=== PATIENT | female | born 1940 | race Caucasian/White ===

== ENCOUNTER 2017-12-04 08:17 | Inpatient (IN) | payer OTHER, SELFPAY ==
--- OUTSIDE RECORDS SUMMARY | 2017-12-04 08:19 | XMS REPORT ---
:1940 Author Organization [employer] Care Team Providers Name Role Phone Quevedo, Na Provider Role Unavailable Allergies, Adverse Reactions, Alerts Substance Reaction Event Type Citalopram Hydrobromide thrombocytopenia Drug Allergy Problems Problem Type Condition Code Onset Dates Condition Status Assessment Renal insufficiency N28.9 Active Problem Degenerative joint disease M19.90 Active Assessment Neutrophilic leukocytosis D72.9 Active Problem Diverticulosis of colon K57.30 Active Assessment Hypoxemia R09.02 Active Problem Mixed hyperlipidemia E78.2 Active Problem CAD (coronary artery disease), I25.10 Active [place] coronary artery Problem Urinary incontinence R32 Active Problem HTN (hypertension) I10 Active Problem Renal insufficiency N28.9 Active Assessment Chronic atrial fibrillation I48.2 Active Assessment Pulmonary fibrosis J84.10 Active Problem Obesity E66.9 Active Assessment Dependence on supplemental oxygen Z99.81 Active Problem Pulmonary fibrosis J84.10 Active Problem 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 Problem Osteopenia M85.80 Active Problem Glaucoma H40.9 Active Assessment HTN (hypertension) I10 Active Problem Neutrophilic leukocytosis D72.9 Active Assessment CAD (coronary artery disease), I25.10 Active [place] coronary artery Assessment Mixed hyperlipidemia E78.2 Active Problem Dependence on supplemental oxygen Z99.81 Active Problem Chronic atrial fibrillation I48.2 Active Problem At risk for falling Z91.81 Active Problem Leucocytosis D72.829 Active Medications Medication Code Code Instructions Start End Status Dosage System Date Date Lovastatin [facility] 82710848153 10 MG Orally Active 1 tablet Once a day with a meal Metoprolol [facility] 15479162669 25 MG Orally Active 1 tablet Tartrate Twice a day with food Caltrate 600+D [facility] 24076117447 600-800 MG-UNIT Active 1 tablet Orally Once a with a meal day Xalatan [facility] 97710972091 0.005 % Active 1 drop into Ophthalmic Once affected a day eye in the evening Norvasc [facility] 57393006773 5 MG Orally Once Active 1 tablet a day Results No Known Results Summary Purpose [employer] Submission
--- OUTSIDE RECORDS SUMMARY | 2017-12-04 08:19 | XMS REPORT ---
:1940 Author Organization [employer] Care Team Providers Name Role Phone Quevedo, Na Provider Role Unavailable Allergies No Known Allergies Problems Problem Type Condition Code Onset Dates Condition Status Problem Mixed hyperlipidemia E78.2 Active Problem CAD (coronary artery disease), I25.10 Active [place] coronary artery Problem Urinary incontinence R32 Active Problem HTN (hypertension) I10 Active Problem Renal insufficiency N28.9 Active Problem Obesity E66.9 Active Problem Pulmonary fibrosis J84.10 Active Problem 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 Problem Osteopenia M85.80 Active Problem Glaucoma H40.9 Active Problem Neutrophilic leukocytosis D72.9 Active Problem Dependence on supplemental oxygen Z99.81 Active Problem Chronic atrial fibrillation I48.2 Active Problem At risk for falling Z91.81 Active Problem Degenerative joint disease M19.90 Active Problem Leucocytosis D72.829 Active Problem Diverticulosis of colon K57.30 Active Medications No Known Medications Results No Known Results Summary Purpose [employer] Submission
[2017-12-04 08:53] LABS: Arterial Blood Carboxyhemoglob 1.6 % (0-1.5); Blood Gas Oxyhemoglobin 91.1 % (94-97); Blood O2 Saturation 93.4 % (92-98.5)
--- NOTE | 2017-12-04 09:25 | RAD REPORT ---
EXAM DESCRIPTION: CT - Head Brain Wo Cont - 12/04/2017 9:10 am CLINICAL HISTORY: Alteration of awareness. Declining state COMPARISON: January 2017 TECHNIQUE: Computed axial tomography of the head was obtained. IV contrast was not requested. All CT scans are performed using dose optimization technique as appropriate and may include automated exposure control or mA/KV adjustment according to patient size. FINDINGS: An intracranial bleed is not seen . The ventricles are normal in caliber. No extra-axial fluid collection is noted. Mild low-density areas within periventricular, deep and sub cortical white matter likely represent ischemic changes secondary to small vessel disease. Fluid within the sinuses/ mastoids is not seen. IMPRESSION: No acute intracranial abnormality is seen. If patient's symptoms persist MRI of the bra in would be recommended.
[2017-12-04 10:17] LABS: Absolute Monocytes 0.6 K/uL (0.1-1.3); Absolute Neutrophil 10.8 K/uL (1.8-8.0); Basophils % 0.7 % (0-1.3); Eosinophils % 1.1 % (0-4.4); Hematocrit 45.1 % (36.0-45.0); Lymphocytes % 14.6 % (15.3-44.8); MCH 28.4 pg (27.0-35.0); MCV 87.4 fL (80-100); MPV 7.6 fL (7.6-11.3); Monocytes % 4.7 % (3.3-12.3); RBC Red Blood Cell Count 5.16 M/uL (3.86-4.86)
[2017-12-04 10:20] LABS: Protime INR 1.08
[2017-12-04 10:30] LABS: ALT/SGPT 22 U/L (12-78); AST/SGOT 22 U/L (15-37); Albumin 3.2 g/dL (3.4-5.0); Alkaline Phosphatase 162 U/L (45-117); BUN Blood Urea Nitrogen 17 mg/dL (7-18); Bicarbonate 35 mmol/L (21-32); Bilirubin Direct 0.2 mg/dL (0-0.2); Bilirubin Total 0.4 mg/dL (0.2-1.0); Creatine Phosphokinase 30 U/L (26-192); Glucose Level 112 mg/dL (74-106); Lipase 83 U/L (73-393); Potassium 4.3 mmol/L (3.5-5.1); Protein, Total 8.2 g/dL (6.4-8.2); Sodium Level 142 mmol/L (136-145); Troponin (Emerg Dept Use Only) < 0.02 ng/mL (0.0-0.045)
--- NOTE | 2017-12-04 10:37 | RAD REPORT ---
EXAM DESCRIPTION: [facility]ji Single View12/04/2017 10:07 am CLINICAL HISTORY: Chest pain COMPARISON: January 2017 FINDINGS: The lungs appear clear of acute infiltrate. The heart is mildly enlarged. Postsurgical changes involve the chest IMPRESSION: No acute abnormalities displayed
[2017-12-04] MEDS ORDERED: IPRATROPIUM BROM 0.5MG/2.5ML ONE (10:55)
[2017-12-04] MEDS ORDERED: FUROSEMIDE 40 MG/4 ML VIAL ONE (10:55)
[2017-12-04] MEDS ORDERED: ALBUTEROL 2.5 MG/3 ML NEB SOL ONE (10:55)
--- NOTE | 2017-12-04 11:15 | EDPHYS ---
Physician Documentation [facility] Name: Jayne Ledbetter Age: 77 yrs Sex: Female : 1940 Arrival Date: 12/04/2017 Time: 08:20 Bed 8 Private MD: Ashlee Quevedo ED Physician Lj Vaughn HPI: 12/04 11:08 This 77 yrs old Female presents to ER via Wheelchair with complaints of gs Altered Mental Status. 11:08 The patient presents with decreased responsiveness. Onset: The symptoms/episode gs began/occurred gradually, 2 day(s) ago. Possible causes: unknown. Associated signs and symptoms: Pertinent negatives: abdominal pain, chest pain, fever. Current symptoms: In the emergency department the patient's symptoms are unchanged from the initial presentation. The patient has experienced similar episodes in the past, a few times. The patient has not recently seen a physician. Historical: - Allergies: 10:22 No Known Allergies; hb - Home Meds: 08:35 aspirin 81 mg Oral chew 1 tab once daily [Active]; atorvastatin Oral [Active]; Eye hb Drops x2 for Glaucoma [Active]; Oxygen \T\ 2L/NC [Active]; metoprolol tartrate 25 mg Oral tab 1 tab once daily [Active]; 12:04 amlodipine 2.5 mg tab 1 tab once daily [Active]; lovastatin 10 mg Oral tab 1 tab once sg daily [Active]; - PMHx: 08:35 Cancer; Glaucoma; heart disease; High Cholesterol; Hypertension; hb - PSHx: 08:35 ; Hysterectomy; CABG; hb - Immunization history:: Adult Immunizations up to date. - Social history:: Smoking status: Patient/guardian denies using tobacco. - Ebola Screening: : No symptoms or risks identified at this time. ROS: 11:08 All other systems are negative. gs Exam: 11:08 Head/Face: Normocephalic, atraumatic. Eyes: Pupils equal round and reactive to light, gs extra-ocular motions intact. Lids and lashes normal. Conjunctiva and sclera are non-icteric and not injected. Cornea within normal limits. Periorbital areas with no swelling, redness, or edema. ENT: Nares patent. No nasal discharge, no septal abnormalities noted. Tympanic membranes are normal and external auditory canals are clear. Oropharynx with no redness, swelling, or masses, exudates, or evidence of obstruction, uvula midline. Mucous membranes moist. Neck: Trachea midline, no thyromegaly or masses palpated, and no cervical lymphadenopathy. Supple, full range of motion without nuchal rigidity, or vertebral point tenderness. No Meningismus. Chest/axilla: Normal chest wall appearance and motion. Nontender with no deformity. No lesions are appreciated. 11:08 Abdomen/GI: Soft, non-tender, with normal bowel sounds. No distension or tympany. No guarding or rebound. No evidence of tenderness throughout. Back: No spinal tenderness. No costovertebral tenderness. Full range of motion. Skin: Warm, dry with normal turgor. Normal color with no rashes, no lesions, and no evidence of cellulitis. MS/ Extremity: Pulses equal, no cyanosis. Neurovascular intact. Full, normal range of motion. Neuro: Awake and alert, GCS 15, oriented to person, place, time, and situation. Cranial nerves II-XII grossly intact. Motor strength 5/5 in all extremities. Sensory grossly intact. Cerebellar exam normal. Normal gait. 11:08 Constitutional: The patient appears lethargic. 11:08 Cardiovascular: Rate: normal, Rhythm: regular, Pulses: no pulse deficits are appreciated. 11:08 ECG was reviewed by the Attending Physician. 11:08 Respiratory: moderate respiratory distress is noted, Respirations: shallow respirations, that is moderate, Breath sounds: rhonchi, that are mild, are heard diffusely. 11:08 Neuro: Orientation: to person, place, time, situation. Vital Signs: 08:25 BP 191 / 71; Pulse 71; Resp 28; Temp 97.4(A); Pulse Ox 56% on R/A; hb 08:40 Pulse Ox 94% on 3 lpm NC; hb 09:45 BP 199 / 95; Pulse 70; Resp 24; Pulse Ox 97% on 35% BiPAP; hb 10:27 BP 177 / 70; Pulse 67; Resp 24; Pulse Ox 95% on 35% BiPAP; hb 12:22 BP 158 / 64; Pulse 73; Resp 18; Pulse Ox 96% on R/A; hb MDM: 08:36 Patient medically screened. gs 11:08 Differential Diagnosis: CVA, electrolyte abnormality, intracranial bleed, pneumonia, gs resp failure, chf, copd. Data reviewed: vital signs, nurses notes. Response to treatment: the patient's symptoms have markedly improved after treatment, and as a result, I will admit patient. 12/04 08:36 Order name: Basic Metabolic Panel; Complete Time: 10:43 12/04 08:36 Order name: Blood Culture Adult (2) 12/04 08:36 Order name: CBC with Diff; Complete Time: 10:43 12/04 08:36 Order name: CPK; Complete Time: 10:43 12/04 08:36 Order name: Lactate; Complete Time: 10:43 12/04 08:36 Order name: LFT's; Complete Time: 10:43 12/04 08:36 Order name: Lipase; Complete Time: 10:43 12/04 08:36 Order name: Procalcitonin; Complete Time: 10:43 12/04 08:36 Order name: Protime (+inr); Complete Time: 10:43 12/04 08:36 Order name: Troponin (emerg Dept Use Only); Complete Time: 10:43 12/04 08:36 Order name: Urine Microscopic Only 12/04 08:36 Order name: ABG; Complete Time: 10:13 12/04 12:23 Order name: Urine Dipstick--Ancillary (enter results) 12/04 12:29 Order name: T4 Free [facility] 12/04 08:36 Order name: Chest Single View XRAY; Complete Time: 10:43 12/04 08:36 Order name: Accucheck; Complete Time: 09:52 12/04 08:36 Order name: Cardiac monitoring; Complete Time: 09:08 12/04 08:36 Order name: EKG - Nurse/Tech; Complete Time: 09:09 12/04 08:36 Order name: IV Saline Lock - Large Bore; Complete Time: 09:56 12/04 08:36 Order name: Labs collected and sent; Complete Time: 09:56 12/04 08:36 Order name: O2 Per Protocol; Complete Time: 09:09 12/04 08:36 Order name: CT Head Brain wo Cont; Complete Time: 10:13 12/04 10:47 Order name: BIPAP 12/04 12:29 Order name: Thyroid Stimulating Hormone EDMS 12/04 12:34 Order name: Urine Dipstick-Ancillary EDSD 12/04 08:36 Order name: O2 Sat Monitoring; Complete Time: 09:09 12/04 08:36 Order name: Urine Dipstick-Ancillary (obtain specimen); Complete Time: 11:35 12/04 11:35 Order name: Ciara; Complete Time: 11:35 hb EC:08 Rate is 68 beats/min. Rhythm is regular. AK interval is normal. QRS interval is normal. gs T waves are Normal. No ST changes noted. Clinical impression: Normal ECG. Interpreted by me. Administered Medications: 08:37 CANCELLED (Duplicate Order): NS 0.9% (30 ml/kg) 30 ml/kg IV at bolus once; Sepsis Protocol 11:00 Drug: Lasix 40 mg Route: IVP; Site: right antecubital; hb 12:00 Follow up: Response: No adverse reaction hb 11:00 Drug: Albuterol 2.5 mg Route: Inhalation; hb 11:00 Drug: AtroVENT Aerosol 0.5 mg Route: Inhalation; hb 11:40 Drug: Rocephin - (cefTRIAXone) 1 grams Route: IVPB; Infused Over: 30 mins; Site: right hb antecubital; 12:00 Follow up: Response: No adverse reaction; IV Status: Completed infusion hb Disposition: 11:08 Critical Care:. gs Disposition: 12/04/17 11:14 Hospitalization ordered by Leon Schwartz for Inpatient Admission. Preliminary diagnosis are Acute respiratory failure with hypercapnia, Cystitis. - Bed requested for Intensive Care Unit. - Status is Inpatient Admission. dm5 - Condition is Stable. - Problem is new. - Symptoms have improved. UTI on Admission? Yes Critical care time excluding procedures: 11:08 Critical care time: Bedside Care: 10 minutes, Consultation: 10 minutes, Family gs Intervention: 10 minutes. Total time: 30 minutes Signatures: Dispatcher [employer] Oneyda Snow RN ALIS dm5 Daysi Corrales RN RN Madhav Ocampo RN RN Eleni Cavanaugh RN RN Lj Vaughn MD MD gs Corrections: (The following items were deleted from the chart) 08:37 08:36 NS 0.9% (30 ml/kg) 30 ml/kg IV at bolus once; Sepsis Protocol ordered. [facility] 11:17 11:14 Hospitalization Ordered by Leon Schwartz DO for Inpatient Admission. Preliminary diagnosis is Acute respiratory failure with hypercapnia. Bed requested for Telemetry/MedSurg (Inpatient). Status is Inpatient Admission. Condition is Stable. Problem is new. Symptoms have improved. UTI on Admission? No. 11:32 11:17 12/04/2017 11:14 Hospitalization Ordered by Leon Schwartz DO for Inpatient gs Admission. Preliminary diagnosis is Acute respiratory failure with hypercapnia. Bed requested for Intensive Care Unit. Status is Inpatient Admission. Condition is Stable. Problem is new. Symptoms have improved. UTI on Admission? No. 12:17 11:32 12/04/2017 11:14 Hospitalization Ordered by Leon Schwartz DO for Inpatient dw Admission. Preliminary diagnosis is Acute respiratory failure with hypercapnia; Cystitis. Bed requested for Intensive Care Unit. Status is Inpatient Admission. Condition is Stable. Problem is new. Symptoms have improved. UTI on Admission? Yes. 13:51 12:17 12/04/2017 11:14 Hospitalization Ordered by Leon Schwartz DO for Inpatient dm5 Admission. Preliminary diagnosis is Acute respiratory failure with hypercapnia; Cystitis. Bed requested for Intensive Care Unit. Status is Inpatient Admission. Condition is Stable. Problem is new. Symptoms have improved. UTI on Admission? Yes. dw
--- NOTE | 2017-12-04 11:15 | ER ---
Nurse's Notes [facility] Name: Jayne Ledbetter Age: 77 yrs Sex: Female : 1940 Arrival Date: 12/04/2017 Time: 08:20 Bed 8 Private MD: Ashlee Quevedo Diagnosis: Acute respiratory failure with hypercapnia;Cystitis Presentation: 12/04 08:25 Presenting complaint: Daughter reports confusion since yesterday at 1600. hb 08:25 Method Of Arrival: Wheelchair hb 08:25 Transition of care: patient was not received from another setting of care. Onset of hb symptoms was December 03, 2017. Risk Assessment: Do you want to hurt yourself or someone else? Patient reports no desire to harm self or others. Care prior to arrival: None. 08:25 Acuity: KEVIN 2 hb 10:45 Initial Sepsis Screen: Does the patient meet any 2 criteria? RR > 20 per min. No. hb Patient's initial sepsis screen is negative. Does the patient have a suspected source of infection? No. Patient's initial sepsis screen is negative. Historical: - Allergies: 10:22 No Known Allergies; hb - Home Meds: 08:35 aspirin 81 mg Oral chew 1 tab once daily [Active]; atorvastatin Oral [Active]; Eye hb Drops x2 for Glaucoma [Active]; Oxygen \T\ 2L/NC [Active]; metoprolol tartrate 25 mg Oral tab 1 tab once daily [Active]; 12:04 amlodipine 2.5 mg tab 1 tab once daily [Active]; lovastatin 10 mg Oral tab 1 tab once sg daily [Active]; - PMHx: 08:35 Cancer; Glaucoma; heart disease; High Cholesterol; Hypertension; hb - PSHx: 08:35 ; Hysterectomy; CABG; hb - Immunization history:: Adult Immunizations up to date. - Social history:: Smoking status: Patient/guardian denies using tobacco. - Ebola Screening: : No symptoms or risks identified at this time. Screenin:00 Abuse screen: Denies threats or abuse. Denies injuries from another. Nutritional hb screening: No deficits noted. Tuberculosis screening: No symptoms or risk factors identified. Fall Risk Total Cali Fall Scale indicates High Risk Score (45 or more points). Fall prevention measures have been instituted. Side Rails Up X 2 Frequent Obs/Assessments Occuring Family Present and informed to notify staff if the need to leave the bedside As available patient and family educated on Fall Prevention Program and Strategies. Assessment: 08:25 General: Appears distressed, Behavior is cooperative. Pain: Denies pain. Neuro: Level hb of Consciousness is obeys commands, lethargic, Oriented to person, place. Cardiovascular: Heart tones S1 S2 present Capillary refill is > 3 seconds Patient's skin is warm and dry. Respiratory: Airway is patent Trachea midline Respiratory effort is labored, Respiratory pattern is tachypnea. GI: No signs and/or symptoms were reported involving the gastrointestinal system. : No signs and/or symptoms were reported regarding the genitourinary system. EENT: No signs and/or symptoms were reported regarding the EENT system. Derm: Skin is intact, is thin, Skin is dry, Skin is pale. Musculoskeletal: No signs and/or symptoms reported regarding the musculoskeletal system. 08:30 Reassessment: 55-60% on RA, improved to 94% on NRB. Dr. Vaughn notified at bedside. RT hb paged for ABG and BIPAP ordered. 09:30 Reassessment: No changes from previously documented assessment. Patient and/or family hb updated on plan of care and expected duration. Pain level reassessed. Daughter remains at bedside. BIPAP continues. 10:30 Reassessment: Patient appears in no apparent distress at this time. Patient and/or hb family updated on plan of care and expected duration. Pain level reassessed. Patient is alert, oriented x 3, equal unlabored respirations, skin warm/dry/pink. 11:02 Reassessment: Dr. Schwartz at bedside. Admission ordered, awaiting room assignment at this time. 11:30 Reassessment: Patient appears in no apparent distress at this time. Patient and/or hb family updated on plan of care and expected duration. Pain level reassessed. Patient is alert, oriented x 3, equal unlabored respirations, skin warm/dry/pink. BIPAP continues. 12:30 Reassessment: Attempted to call report to ICU, receiving nurse is unavailable at this time. 12:35 Reassessment: Patient appears in no apparent distress at this time. Patient and/or hb family updated on plan of care and expected duration. Pain level reassessed. Patient is alert, oriented x 3, equal unlabored respirations, skin warm/dry/pink. 13:11 Reassessment: Report called to ALIS Ibarra. hb Vital Signs: 08:25 BP 191 / 71; Pulse 71; Resp 28; Temp 97.4(A); Pulse Ox 56% on R/A; hb 08:40 Pulse Ox 94% on 3 lpm NC; hb 09:45 BP 199 / 95; Pulse 70; Resp 24; Pulse Ox 97% on 35% BiPAP; hb 10:27 BP 177 / 70; Pulse 67; Resp 24; Pulse Ox 95% on 35% BiPAP; hb 12:22 BP 158 / 64; Pulse 73; Resp 18; Pulse Ox 96% on R/A; hb ED Course: 08:20 Patient arrived in ED. as 08:20 Ashlee Quevedo MD is Private Physician. as 08:27 Lj Vaughn MD is Attending Physician. gs 08:32 Eleni Cavanaugh RN is Primary Nurse. hb 08:34 Triage completed. hb 08:44 EKG done, by orthopedic radiologic technologist. reviewed by Lj Vaughn MD. at1 09:08 CT completed. Patient tolerated procedure well. Patient moved to CT via stretcher. sj Patient moved back from CT. 09:09 CT Head Brain wo Cont In Process Unspecified. EDMS 09:09 Arm band placed on left wrist. hb 09:10 Radiology exam delayed due to PT WAS IN CT. ag1 09:10 Missed attempt(s): 22 gauge in right forearm. Bleeding controlled, band aid applied, sg catheter tip intact. 09:15 Patient has correct armband on for positive identification. Placed in gown. Bed in low hb position. Call light in reach. Side rails up X2. 09:22 O2 via BiPap Response to oxygen therapy: symptoms improved. sg 09:25 Radiology exam delayed due to Blood draw and Code stroke called. ag1 09:55 Initial lab(s) drawn, by me, sent to lab. Inserted saline lock: 22 gauge in right ms antecubital area, using aseptic technique. Blood collected. 10:04 Chest Single View XRAY In Process Unspecified. EDMS 11:07 BIPAP Sent. hb 11:14 Leon Schwartz DO is Hospitalizing Provider. gs 11:25 [place] cath inserted, using sterile technique, 16 Fr., by me, balloon inflated, to hb gravity drainage, urine specimen collected. returned clear yellow urine. Patient tolerated well. 13:14 No provider procedures requiring assistance completed. Patient admitted, IV remains in hb place. Administered Medications: 08:37 CANCELLED (Duplicate Order): NS 0.9% (30 ml/kg) 30 ml/kg IV at bolus once; Sepsis Protocol 11:00 Drug: Lasix 40 mg Route: IVP; Site: right antecubital; hb 12:00 Follow up: Response: No adverse reaction hb 11:00 Drug: Albuterol 2.5 mg Route: Inhalation; hb 11:00 Drug: AtroVENT Aerosol 0.5 mg Route: Inhalation; hb 11:40 Drug: Rocephin - (cefTRIAXone) 1 grams Route: IVPB; Infused Over: 30 mins; Site: right hb antecubital; 12:00 Follow up: Response: No adverse reaction; IV Status: Completed infusion hb Outcome: 11:14 Decision to Hospitalize by Provider. 13:14 Admitted to ICU accompanied by nurse, accompanied by tech, family with patient, via stretcher, room ICU 6, with oxygen, on monitor, with chart, Report called to ALIS Ibarra 13:14 Condition: stable 13:14 Instructed on the need for admit, Demonstrated understanding of instructions. 13:51 Patient left the ED. dm5 Signatures: Dispatcher [facility] Oneyda Snow RN RN dm5 Madhav Ocampo RN RN sg Jones, Raven Linton Maria ms Jacoby, Janet, consulting software engineer EKG Tat1 Namrata Samuels ag1 Eleni Cavanaugh RN RN Lj Vaughn MD MD Corrections: (The following items were deleted from the chart) 10:30 08:25 BP 191 / 71; Pulse 71bpm; Resp 28bpm; Pulse Ox 56% RA; hb hb 11:17 09:15 Reassessment: Patient and/or family updated on plan of care and expected hb duration. Pain level reassessed. Patient is alert, oriented x 3, equal unlabored respirations, skin warm/dry/pink. Daughter at bedside. hb
[2017-12-04] MEDS ORDERED: ACETAMINOPHEN 500 MG TAB PO PRN (11:38)
[2017-12-04] MEDS ORDERED: ONDANSETRON 4 MG/2 ML VIAL IV PRN (11:38)
[2017-12-04] MEDS ORDERED: CEFTRIAXONE/SWI 1gm 1 GM/10 ML SYR ONE (11:47)
--- NOTE | 2017-12-04 12:26 | EKG ---
Test Date: 2017-12-04 Test Time: 08:36:20 Wire Spooler: LETTY MEASUREMENT RESULTS: Intervals: Rate: 68 HI: 182 QRSD: 86 QT: 422 QTc: 448 [place]: P: 1 HI: 182 QRS: 66 T: 36 INTERPRETIVE STATEMENTS: Normal sinus rhythm Normal ECG Compared to ECG 02/22/2017 16:51:19 No significant changes Electronically Signed On 12-04-17 12:24:46 CDT by Juan Ng
[2017-12-04 12:29] LABS: Thyroid Stimulating Hormone 2.97 uIU/mL (0.360-3.740)
[2017-12-04 12:34] LABS: Urine Blood 1+ (NEG); Urine Glucose NEGATIVE (NEG); Urine Protein 1+ (NEG); Urine Specific Gravity 1.025 (1.005-1.030); Urine pH 5.5 (5.0-7.0)
[2017-12-04 12:37] LABS: Urine Bacteria >50 /HPF (<20); Urine Culture Reflex Order REFLEXED; Urine RBC <5 /HPF (NONE SEEN)
[2017-12-04] MEDS: METHYLPREDNISOLONE 125 MG INJ IV SCH ×2 (14:35→21:04)
[2017-12-04] MEDS: Levofloxacin 750mg IV 750 MG/150 ML BAG IV SCH (14:36)
--- NOTE | 2017-12-04 15:08 | P.HP ---
Certification for Inpatient Patient admitted to: Inpatient With expected LOS: >2 Midnights Patient will require the following post-hospital care: Home Health Services Practitioner: I am a practitioner with admitting privileges, knowledge of patient current condition, hospital course, and medical plan of care. Services: Services provided to patient in accordance with Admission requirements found in Title 42 Section 412.3 of the Code of Federal Regulations Patient History Date of Service: 12/04/17 Primary Care Provider: Dr. Quevedo; Cardiology-Dr. Jaramillo; Pulmonary-Dr. Frank Allergies No Known Allergies Allergy (Unverified 12/04/17 12:08) Home Medications: Lovastatin 1 tab PO DAILY 02/22/17 Metoprolol Tartrate 1 tab PO BID 02/22/17 Timolol Maleate 1 gtts EACH EYE BID 02/22/17 Amlodipine [Norvasc*] 5 mg PO DAILY 02/23/17 Aspirin [Aspirin EC 81 MG] 81 mg PO DAILY 02/23/17 Brimonidine Tartrate 10 ml OP BID 02/23/17 - Past Medical/Surgical History Has patient received pneumonia vaccine in the past: No Diabetic: No -: HTN -: CAD with prior CABG -: History uterine cancer -: Hyperlipidemia -: Glaucoma -: COPD -: Hyperlipidemia -: CABG -: Hysterectomy -: Psychosocial/ Personal History: She is a . She has several children - Family History Family History: Reviewed- Non-Contributory - Social History Smoking Status: Never smoker Alcohol use: No CD- Drugs: No Caffeine use: Yes Place of Residence: Home Review of Systems General: Weakness, Malaise, As per HPI Eyes: Unremarkable ENT: Unremarkable Respiratory: Cough, Shortness of Breath, SOB with Excertion, Wheezing, As per HPI Cardiovascular: Unremarkable Gastrointestinal: Unremarkable Genitourinary: Unremarkable Musculoskeletal: Unremarkable Integumentary: Unremarkable Neurological: Confusion, As per HPI Lymphatics: Unremarkable Physical Examination - Vital Signs Temperature: 97.4 F Blood Pressure: 158/64 Pulse: 73 Respirations: 18 - Physical Exam General: Alert, In no apparent distress, Cooperative, Other (Minimal confusion) HEENT: Atraumatic, Normocephalic, PERRLA, Mucous membr. moist/pink Neck: Supple Respiratory: Expiratory wheezes (Bilateral) Cardiovascular: Normal pulses, Regular rate/rhythm Gastrointestinal: Normal bowel sounds, Soft and benign, Non-distended, No tenderness, No masses, No rebound, No guarding Musculoskeletal: No erythema, No tenderness, No warmth Integumentary: No tenderness/swelling, No erythema, No warmth, No cyanosis Neurological: Normal speech, Normal strength at 5/5 x4 extr, Normal tone, Normal affect - Studies Laboratory Data (last 24 hrs) 12/04/17 09:53: PT 12.7 H, INR 1.08 12/04/17 09:53: WBC 13.7 H, Hgb 14.7, Hct 45.1 H, Plt Count 232 12/04/17 09:53: Sodium 142, Potassium 4.3, BUN 17, Creatinine 0.90, Glucose 112 H, Total Bilirubin 0.4, AST 22, ALT 22, Alkaline Phosphatase 162 H, Lipase 83 Assessment and Plan - Plan Impression: Acute on chronic respiratory failure with hypoxia and hypercapnia secondary to COPD exacerbation Acute encephalopathy likely multifactorial, related to acute on chronic respiratory failure and UTI UTI Hypertension Hyperlipidemia GERD CAD with prior CABG Plan: Acute on chronic respiratory failure with hypoxia and hypercapnia secondary to COPD exacerbation, patient home oxygen-dependent: Patient will be admitted to ICU due to her current status. Patient stable this time. Patient requiring BiPAP. Patient more alert. Will continue with COPD medication including steroid treatment and nebulized treatment. Consult pulmonology to further evaluate. Will have respiratory wean off BiPAP. Patient uses home oxygen. Patient desires to go home at discharge. Acute encephalopathy likely multifactorial, related to acute on chronic respiratory failure and UTI: Encephalopathy improved. This is likely primarily related to her respiratory failure. Will continue as above. Patient also with UTI. Will start Levaquin. Urine and blood cultures obtained. UTI: Levaquin started. Urine culture pending Hypertension: Will need to verify and restart home medication. Will start metoprolol and Norvasc. Will monitor and adjust appropriately. Hyperlipidemia: Will review and restart home medication. Will start Lipitor. GERD: Will provide PPI. CAD with prior CABG: Will continue with aspirin and provide DVT prophylaxis. I will turn the service over to Dr. Alonzo tomorrow. I will go over the plan of care with her. - Advance Directives Does patient have a Living Will: Yes Does patient have a Durable POA for Healthcare: No - Code Status/Comfort Care Code Status Assessed: Yes (Patient is do not resuscitate) Time Spent Managing Pts Care (In Minutes): 55
[2017-12-04 15:43] LABS: CKMB Creatine Kinase MB < 1.0 ng/mL (0.3-3.6); Creatine Phosphokinase 28 U/L (26-192); Troponin I < 0.02 ng/mL (0.0-0.045)
[2017-12-04] MEDS: AMLODIPINE 5 MG TAB PO SCH (16:00)
[2017-12-04] MEDS: METOPROLOL TAR 25 MG TAB PO SCH (18:13)
[2017-12-04] MEDS: IPRATROPIUM BROM 0.5MG/2.5ML NEB PRN (20:10)
[2017-12-04] MEDS: ALBUTEROL 2.5 MG/3 ML NEB SOL NEB PRN (20:10)
[2017-12-04] MEDS: ARFORMOTEROL TARTRATE 15 MCG/2 ML VIAL.NEB NEB SCH (20:10)
[2017-12-04] MEDS: ATORVASTATIN 40 MG TAB PO SCH (21:03)
--- NOTE | 2017-12-04 22:42 | CON ---
History Of Present Illness: Mrs. Ledbetter is officially a 'Do Not Resuscitate' patient. More than 1 0 years ago, she had bypass surgery. She has done well since her bypass surgery. She has not had at rial fibrillation. She also has underlying hypertension, dyslipidemia, and she has glaucoma which is well treated. She was brought to the hospital because of worsening confusion. She started talking funny indicating that she was confused as to where she was. She was brought to the hospital. Since being here, a CT scan of the head looks normal. A carotid Doppler has been done but has not been int erpreted yet. My own interpretation indicates there is no significant stenosis. She has had an mal rial blood gas, which reveals she is retaining CO2. Her pCO2 was in the 70s and her pH was 7.29. Sudha montgomery also has a urinary tract infection, at least according to the urinalysis. The urine culture is pen ding. Blood cultures are also pending. The working diagnosis is that she has worsening confusion be cause of infection and CO2 retention. The patient was a cigarette smoker before her bypass, but has not smoked in many years. I was asked to see her to see if I thought she had congestive heart failur e. She has had an echocardiogram today that shows normal ejection fraction. There is mild valvular dysfunction, mild dysfunction of a diastole, but a chest x-ray does not look like congestive heart fa ilure to me at all. Physical Examination: General: Height 5 feet 1 inch, 179 pounds. Alert, not oriented, confused, not in respiratory distre ss. Lungs: Do not reveal wheezes or crackles. Heart Exam: Within normal limits for her age. There is a systolic murmur that seems to be a systoli c ejection type murmur, grade 1/6. Extremities: Mild edema. Distal pulses palpable. Impression: The patient does not have congestive heart failure. She has some onset of confusion bec ause of urinary tract infection and/or CO2 retention from obstructive sleep apnea. SH/MODL Voice ID: [id number] Report ID: [id number]
[2017-12-04 23:09] LABS: CKMB Creatine Kinase MB < 1.0 ng/mL (0.3-3.6); Creatine Phosphokinase 23 U/L (26-192); Troponin I < 0.02 ng/mL (0.0-0.045)
[2017-12-05] MEDS: IPRATROPIUM BROM 0.5MG/2.5ML NEB PRN (01:20)
[2017-12-05] MEDS: ALBUTEROL 2.5 MG/3 ML NEB SOL NEB PRN (01:20)
[2017-12-05 05:19] LABS: Absolute Monocytes 0.1 K/uL (0.1-1.3); Absolute Neutrophil 11.2 K/uL (1.8-8.0); Basophils % 0.4 % (0-1.3); Hematocrit 39.2 % (36.0-45.0); Lymphocytes % 8.2 % (15.3-44.8); MCH 28.5 pg (27.0-35.0); MCV 86.7 fL (80-100); MPV 7.5 fL (7.6-11.3); Monocytes % 0.6 % (3.3-12.3); RBC Red Blood Cell Count 4.52 M/uL (3.86-4.86)
[2017-12-05 05:36] LABS: Magnesium 1.8 mg/dL (1.8-2.4); Potassium 4.1 mmol/L (3.5-5.1)
[2017-12-05] MEDS ORDERED: MAGNESIUM SULFATE 1 gm IVPB 1 GM/100 ML BAG IV ONE (05:42)
[2017-12-05 05:48] LABS: Blood Morphology Comment NOT SEEN (NOT SEEN); Platelet Estimate ADEQ
[2017-12-05] MEDS: METOPROLOL TAR 25 MG TAB PO SCH ×2 (06:04→17:10)
--- NOTE | 2017-12-05 07:28 | ECHO ---
HEIGHT: 5 ft 1 in WEIGHT: 176 lb 3.2 oz DATE OF STUDY: 12/04/[address]: Leon Schwartz DO 2-DIMENSIONAL: YES M.MODE: YES DOPPLER: YES COLOR FLOW: YES TDS: YES PORTABLE: YES DEFINITY: BUBBLE STUDY: DIAGNOSIS: SHORTNESS OF BREATH, SUSPECT CONGESTIVE HEART FAILURE CARDIAC HISTORY: CATHERIZATION: NO SURGERY: YES PROSTHETIC VALVE: NO PACEMAKER: NO MEASUREMENTS (cm) DIASTOLIC (NORMALS) SYSTOLIC (NORMALS) IVSd 1.3 (0.6-1.2) LA Diam 3.0 (1.9-4.0) LVEF 69% LVIDd 3.3 (3.5-5.7) LVIDs 2.1 (2.0-3.5) %FS 38% LVPWd 1.4 (0.6-1.2) Ao Diam 2.5 (2.0-3.7) 2 DIMENSIONAL ASSESSMENT: RIGHT ATRIUM: NORMAL LEFT ATRIUM: DILATED RIGHT VENTRICLE: NORMAL LEFT VENTRICLE: LEFT VENTRICULAR HYPERTROPHY TRICUSPID VALVE: NORMAL MITRAL VALVE: MITRAL ANNULAR CALCIFICATION PULMONIC VALVE: NORMAL AORTIC VALVE: SCLEROSIS PERICARDIAL EFFUSION: NONE AORTIC ROOT: NORMAL LEFT VENTRICULAR WALL MOTION: NORMAL DOPPLER/COLOR FLOW: IMPAIRED LEFT VENTRICULAR RELAXATION. NO SIGN OF AORTIC STENOSIS OR AORTIC REGURGITATION. MILD MITRAL REGURGITATION. TRACE TRICUSPID REGURGITATION. NORMAL RIGHT VENTRICULAR SYSTOLIC PRESSURE. COMMENTS: NORMAL LEFT VENTRICULAR EJECTION FRACTION. LEFT VENTRICULAR HYPERTROPHY. DILATED LEFT ATRIUM. MITRAL ANNULAR CALCIFICATION. AORTIC SCLEROSIS WITH NO AORTIC STENOSIS OR AORTIC REGURGITATION. MILD MITRAL REGURGITATION. TRACE TRICUSPID REGURGITATION. TECHNOLOGIST: JOÃO BECKFORD
[2017-12-05] MEDS: ARFORMOTEROL TARTRATE 15 MCG/2 ML VIAL.NEB NEB SCH ×2 (07:58→20:47)
--- NOTE | 2017-12-05 08:31 | RAD REPORT ---
EXAM DESCRIPTION: USCarotid Artery [id number]/10/2018 12:29 pm CLINICAL HISTORY: TIA COMPARISON: None FINDINGS: The velocity of the right internal carotid artery equals 100 cm/sec. The right ICA/CCA rat io. 1.7 The velocity of the left internal carotid artery equals 100 cm/sec. The left ICA/CCA ratio 1.5 Moderate plaque is present within the right carotid bulb. Mild plaque is present within the left inte rnal carotid artery. The vertebral arteries demonstrate antegrade flow IMPRESSION: Moderate plaque within the right carotid bulb which appears to result in an approximatel y 40-45 percent stenosis
--- NOTE | 2017-12-05 08:37 | P.CNS ---
Date of Consult: 12/05/17 Reason for Consult: Respiratory failure Primary Care Provider: Dr. Quevedo; Cardiology-Dr. Jaramillo; Pulmonary-Dr. Frank Chief Complaint: Altered mental status History of Present Illness: Patient is 77 years of age well known to me with a history of obstructive airways disease sleep apnea admitted with altered mental status. This started about 2 days prior to admission seen in my office 1 or 2 weeks ago patient very anxious short of breath and was started on bronchodilators he is she still continued to have symptoms. Patient was found to be hypoxic hypercapnic Stefano is confused little agitated on BiPAP T Allergies No Known Allergies Allergy (Unverified 12/04/17 12:08) Home Medications: Lovastatin 1 tab PO DAILY 02/22/17 Metoprolol Tartrate 1 tab PO BID 02/22/17 Timolol Maleate 1 gtts EACH EYE BID 02/22/17 Amlodipine [Norvasc*] 2.5 mg PO DAILY 02/23/17 Aspirin [Aspirin EC 81 MG] 81 mg PO DAILY 02/23/17 Brimonidine Tartrate 1 gtt OP DAILY 02/23/17 - Past Medical/Surgical History Diabetic: No -: HTN -: CAD with prior CABG -: History uterine cancer -: Hyperlipidemia -: Glaucoma -: COPD -: Hyperlipidemia -: CABG -: Hysterectomy -: Psychosocial/ Personal History: She is a . She has several children - Social History Smoking Status: Never smoker Alcohol use: No CD- Drugs: No Caffeine use: Yes Place of Residence: Home Review of Systems is unable to be obtained Physical Examination Temp Pulse Resp BP Pulse Ox 98.2 F 60 17 130/53 L 94 12/05/17 04:00 12/05/17 07:00 12/05/17 07:00 12/05/17 07:00 12/05/17 07:00 General: Alert, Oriented x2, Cooperative Neck: Supple Respiratory: Clear to auscultation bilaterally, Diminished Cardiovascular: No edema, Normal S1 S2 Gastrointestinal: Normal bowel sounds, Soft and benign Laboratory Data (last 24 hrs) 12/04/17 09:53: PT 12.7 H, INR 1.08 12/04/17 09:53: WBC 13.7 H, Hgb 14.7, Hct 45.1 H, Plt Count 232 12/04/17 09:53: Sodium 142, Potassium 4.3, BUN 17, Creatinine 0.90, Glucose 112 H, Total Bilirubin 0.4, AST 22, ALT 22, Alkaline Phosphatase 162 H, Lipase 83 - Problems (1) Respiratory failure Current Visit: Yes Status: Acute Plan: Patient is 77 years of age admitted with altered mental status acute on chronic hyper apnea and respiratory failure still confused agitated on BiPAP white count mildly elevated chest x-ray shows interstitial changes echocardiogram normal left ventricular function left ventricular hypertrophy possible diastolic dysfunction plan to reduce the dose of Solu-Medrol I have added a low- dose diuretic thyroid function tests is satisfactory Qualifiers: Chronicity: acute on chronic
[2017-12-05] MEDS: METHYLPREDNISOLONE 40 MG INJ IV SCH ×3 (09:29→20:30)
[2017-12-05] MEDS: ASPIRIN EC 81 MG TAB PO SCH (09:29)
[2017-12-05] MEDS: AMLODIPINE 5 MG TAB PO SCH (09:29)
[2017-12-05] MEDS: ENOXAPARIN 40 MG/0.4 ML SQ SCH (09:30)
[2017-12-05] MEDS: FUROSEMIDE 20 MG/ 2ML VIAL IV SCH ×2 (09:35→17:11)
[2017-12-05 10:20] LABS: Arterial Blood Carboxyhemoglob 1.8 % (0-1.5); Blood Gas Oxyhemoglobin 93.8 % (94-97); Blood O2 Saturation 96.1 % (92-98.5)
--- NOTE | 2017-12-05 11:40 | PN ---
Subjective: Mrs. Ledbetter looks much more alert today. She is eating. She is still somewhat confus ed. I believe that is her baseline. Her pCO2 yesterday was in the high 70s. Her cardiac workup loo ks good and I do not think we can say she has heart failure itself, although there was found to be so me diastolic dysfunction. At some point, I believe the reason for hospitalization and reason for her confusion is hypoventilation, hypercapnia, probably sleep apnea. SANDRA/JUANJOSE Voice ID: [id number] Report ID: [id number]
--- NOTE | 2017-12-05 12:24 | P.PN ---
Subjective Date of Service: 12/05/17 Primary Care Provider: Dr. Quevedo; Cardiology-Dr. Jaramillo; Pulmonary-Dr. Frank Chief Complaint: Altered mental status Subjective: No new changes Patient seen and examined at bedside with RN. Chart reviewed. Case discussed with pulmonology at this time. Family at bedside and questions regarding discharge versus social work coordinator versus intermittent confusion that patient has been having since last night. All questions were answered. Patient does appear to be alert and oriented x3 however her family and nursing staff has been having intermittent hallucinations as well. Review of Systems 10-point ROS is otherwise unremarkable Physical Examination - Vital Signs Temperature: 98.2 F Blood Pressure: 157/60 Pulse: 73 Respirations: 20 Pulse Ox (%): 96 - Physical Exam General: Alert, Acute distress HEENT: Atraumatic, PERRLA, EOMI Neck: Supple, JVD not distended Respiratory: Normal air movement, Expiratory wheezes, Inspiratory wheezes, Rhonchi/gurgles Cardiovascular: Regular rate/rhythm, Normal S1 S2 Gastrointestinal: Normal bowel sounds, No tenderness Musculoskeletal: No tenderness Integumentary: No rashes Neurological: Normal speech, Normal tone, Normal affect Lymphatics: No axilla or inguinal lymphadenopathy - Studies Microbiology Data (last 24 hrs): 12/04/17 09:50 Blood - Blood Anaerobic Blood Culture - Final Medications List Reviewed: Yes Assessment And Plan - Current Problems (Diagnosis) (1) Respiratory failure Onset Date: 12/05/17 Current Visit: Yes Status: Acute Plan: Acute hypercapnic respiratory failure most likely secondary to COPD exacerbation -currently patient on BiPAP. Will wean as tolerated. -on duonebs, steroids, BiPAP as mentioned before -pulmonology consulted recommendations appreciated at this time Qualifiers: Chronicity: acute on chronic Respiratory failure complication: hypoxia and hypercapnia Qualified Code(s): J96.21 - Acute and chronic respiratory failure with hypoxia; J96.22 - Acute and chronic respiratory failure with hypercapnia (2) Acute encephalopathy Onset Date: 12/05/17 Current Visit: Yes Status: Acute Plan: Acute encephalopathy most likely secondary to toxic metabolic syndrome secondary to UTI versus hypercapnia -currently patient is alert and oriented x3 however does have intermittent confusion along with hallucination -initial head CT negative for any acute abnormality -MRI once patient is stable and off of BiPAP (3) COPD exacerbation Onset Date: 12/05/17 Current Visit: Yes Status: Acute Plan: COPD exacerbation most likely secondary infection -currently on BiPAP will wean as tolerated -duo nebs, steroids, BiPAP -pulmonology consulted appreciated recommendations at this time -will need long-acting beta agonist along with steroids to go home with. (4) UTI (urinary tract infection) Onset Date: 12/05/17 Current Visit: Yes Status: Acute Plan: UA concerning for urinary tract infection -urine culture pending at this time -on IV Levaquin at this time -will follow up with urine culture Qualifiers: Urinary tract infection type: acute cystitis Hematuria presence: without hematuria Qualified Code(s): N30.00 - Acute cystitis without hematuria (5) CAD (coronary artery disease) Onset Date: 12/05/17 Current Visit: Yes Status: Chronic Qualifiers: Coronary Disease-Associated Artery/Lesion type: [place] artery [place] vs. transplanted heart: [place] heart Associated angina: without angina Qualified Code(s): I25.10 - Atherosclerotic heart disease of [place] coronary artery without angina pectoris (6) GERD (gastroesophageal reflux disease) Onset Date: 12/05/17 Current Visit: Yes Status: Chronic Qualifiers: Esophagitis presence: without esophagitis Qualified Code(s): K21.9 - Gastro -esophageal reflux disease without esophagitis (7) HTN (hypertension) Onset Date: 12/05/17 Current Visit: Yes Status: Chronic Qualifiers: Hypertension type: essential hypertension Qualified Code(s): I10 - Essential (primary) hypertension Discharge Plan: Home Plan to discharge in: 48 Hours - Code Status/Comfort Care Code Status Assessed: Yes Critical Care: Yes
[2017-12-05] MEDS: Levofloxacin 750mg IV 750 MG/150 ML BAG IV SCH (13:33)
[2017-12-05] MEDS: ATORVASTATIN 40 MG TAB PO SCH (20:30)
--- NOTE | 2017-12-05 20:42 | RAD REPORT ---
EXAM DESCRIPTION: MRI - Brain Wo Cont - 12/05/2017 8:27 pm CLINICAL HISTORY: Transient alteration of awareness, stroke-like symptoms COMPARISON: CT head December 04 TECHNIQUE: Sagittal T1-weighted images were obtained along with axial PD, heavily T2-weighted and T2 -FLAIR images. Axial DWI and ADC mapping sequences were also obtained along with coronal heavily T2-w eighted images. FINDINGS: No intracranial hemorrhage, mass or acute infarction. There is no edema or shift of midlin e structures. No cortical edema or sulcal effacement. Mild chronic ischemic changes are scattered thr oughout the cerebral white matter sparing the basal ganglia, thalamus and brainstem tissue. Mild to m oderate atrophy is present. Ventricles are in proportion to the volume loss. [place]-matter/white matter junction is preserved. Signal voids are seen as a normal finding in the major intracranial vessels. No globe or orbital content acute finding. Mastoid air cells and paranasal sinuses are clear. IMPRESSION: No acute infarction changes. No acute intracranial finding. Atrophy and chronic ischemic changes are present matching the CT study.
[2017-12-06 05:32] LABS: Absolute Lymphocytes (CBC) 1.2 K/uL (0.7-4.9); Absolute Monocytes 0.3 K/uL (0.1-1.3); Absolute Neutrophil 16.9 K/uL (1.8-8.0); Basophils % 0.5 % (0-1.3); Hematocrit 40.5 % (36.0-45.0); Lymphocytes % 6.4 % (15.3-44.8); MCH 29.3 pg (27.0-35.0); MCV 86.3 fL (80-100); MPV 8.2 fL (7.6-11.3); Monocytes % 1.9 % (3.3-12.3); RBC Red Blood Cell Count 4.69 M/uL (3.86-4.86)
[2017-12-06 05:54] LABS: Magnesium 2.1 mg/dL (1.8-2.4); Potassium 4.3 mmol/L (3.5-5.1)
[2017-12-06] MEDS: METOPROLOL TAR 25 MG TAB PO SCH ×2 (06:00→18:00)
[2017-12-06 06:39] LABS: Blood Morphology Comment NOT SEEN (NOT SEEN); Platelet Estimate ADEQ; Urine White Blood Cell Casts OK
[2017-12-06] MEDS: ARFORMOTEROL TARTRATE 15 MCG/2 ML VIAL.NEB NEB SCH ×3 (08:00→19:40)
[2017-12-06] MEDS: FUROSEMIDE 20 MG/ 2ML VIAL IV SCH (09:00)
[2017-12-06] MEDS: METHYLPREDNISOLONE 40 MG INJ IV SCH (09:00)
--- NOTE | 2017-12-06 09:46 | P.PN ---
Subjective Date of Service: 12/06/17 Primary Care Provider: Dr. Quevedo; Cardiology-Dr. Jaramillo; Pulmonary-Dr. Frank Chief Complaint: Altered mental status Patient's condition is stable she is off BiPAP right now still confused oriented to place and person Review of Systems is unable to be obtained Physical Examination - Vital Signs Temperature: 98.7 F Blood Pressure: 113/56 Pulse: 53 Respirations: 15 Pulse Ox (%): 98 - Physical Exam General: Other (Confused) HEENT: Atraumatic Neck: Supple Respiratory: Normal air movement Cardiovascular: No edema, Normal S1 S2 Neurological: Other (Patient is moving all her extremities no obvious weakness) - Studies Microbiology Data (last 24 hrs): 12/04/17 09:50 Blood - Blood Anaerobic Blood Culture - Final Medications List Reviewed: Yes Assessment & Plan - Problems (Diagnosis) (1) Respiratory failure Onset Date: 12/05/17 Current Visit: Yes Status: Acute Plan: Recheck blood gases she may benefit from a BiPAP at home Qualifiers: Chronicity: acute on chronic Respiratory failure complication: hypoxia and hypercapnia Qualified Code(s): J96.21 - Acute and chronic respiratory failure with hypoxia; J96.22 - Acute and chronic respiratory failure with hypercapnia (2) Altered mental status Current Visit: Yes Status: Acute Plan: Patient has altered mental status little confused although cooperative I wrote function tests is normal CT MRI does not show any significant changes for a B12 level IV thiamine the possible urosepsis size changer to p.o. levofloxacin stops steroids could make her agitated Qualifiers: Altered mental status type: delirium Qualified Code(s): R41.0 - Disorientation, unspecified
[2017-12-06 10:17] LABS: Arterial Blood Carboxyhemoglob 1.7 % (0-1.5); Blood Gas Oxyhemoglobin 93.8 % (94-97); Blood O2 Saturation 95.8 % (92-98.5)
[2017-12-06] MEDS: AMLODIPINE 5 MG TAB PO SCH (10:19)
[2017-12-06] MEDS: ENOXAPARIN 40 MG/0.4 ML SQ SCH (10:19)
[2017-12-06] MEDS: THIAMINE 200 MG/2 ML INJ IVP SCH (10:19)
[2017-12-06] MEDS: levoFLOXacin 500 MG TAB PO SCH (10:19)
[2017-12-06] MEDS: ASPIRIN EC 81 MG TAB PO SCH (10:19)
--- NOTE | 2017-12-06 11:38 | P.PN ---
Subjective Date of Service: 12/06/17 Primary Care Provider: Dr. Quevedo; Cardiology-Dr. Jaramillo; Pulmonary-Dr. Frank Chief Complaint: Altered mental status Patient seen and examined at bedside with RN. Chart reviewed. Case discussed with pulmonology at this time. Doing well overall. Still appears to be intermittently confused. Alert and oriented x2 however does have intermittent confusion. Patient currently off of BiPAP and on nasal cannula at this time Review of Systems 10-point ROS is otherwise unremarkable Physical Examination - Vital Signs Temperature: 98.7 F Blood Pressure: 119/89 Pulse: 68 Respirations: 15 Pulse Ox (%): 98 - Physical Exam General: Alert, In no apparent distress, Oriented x2 HEENT: Atraumatic, PERRLA, EOMI Neck: Supple, JVD not distended Respiratory: Normal air movement, Crackles/rales, Rhonchi/gurgles Cardiovascular: Regular rate/rhythm, Normal S1 S2 Gastrointestinal: Normal bowel sounds, No tenderness Musculoskeletal: No tenderness Integumentary: No rashes Neurological: Normal speech, Normal tone, Normal affect Lymphatics: No axilla or inguinal lymphadenopathy - Studies Microbiology Data (last 24 hrs): 12/04/17 09:50 Blood - Blood Anaerobic Blood Culture - Final Medications List Reviewed: Yes Assessment And Plan - Current Problems (Diagnosis) (1) Respiratory failure Onset Date: 12/05/17 Current Visit: Yes Status: Acute Plan: Acute hypercapnic respiratory failure most likely secondary to COPD exacerbation -patient weaned off of BiPAP at this time. Will repeat ABGs to ensure continuous improvement on oxygen -on duonebs, steroids, oxygen -pulmonology consulted recommendations appreciated at this time Qualifiers: Chronicity: acute on chronic Respiratory failure complication: hypoxia and hypercapnia Qualified Code(s): J96.21 - Acute and chronic respiratory failure with hypoxia; J96.22 - Acute and chronic respiratory failure with hypercapnia (2) Acute encephalopathy Onset Date: 12/05/17 Current Visit: Yes Status: Acute Plan: Acute encephalopathy most likely secondary to toxic metabolic syndrome secondary to UTI versus hypercapnia -currently patient is alert and oriented x3 however does have intermittent confusion along with hallucination -initial head CT negative for any acute abnormality, MRI negative for any acute abnormality as well -neurology consulted for possible diagnosis of dementia versus other organic cause (3) COPD exacerbation Onset Date: 12/05/17 Current Visit: Yes Status: Acute Plan: COPD exacerbation most likely secondary infection -weaned off of BiPAP to nasal cannula now. -duo nebs, steroids, oxygen -pulmonology consulted appreciated recommendations at this time -will need long-acting beta agonist along with steroids to go home with. (4) UTI (urinary tract infection) Onset Date: 12/05/17 Current Visit: Yes Status: Acute Plan: UA concerning for urinary tract infection -urine culture positive for E. coli -switched to p.o. Levaquin at this time Qualifiers: Urinary tract infection type: acute cystitis Hematuria presence: without hematuria Qualified Code(s): N30.00 - Acute cystitis without hematuria (5) CAD (coronary artery disease) Onset Date: 12/05/17 Current Visit: Yes Status: Chronic Qualifiers: Coronary Disease-Associated Artery/Lesion type: [place] artery [place] vs. transplanted heart: [place] heart Associated angina: without angina Qualified Code(s): I25.10 - Atherosclerotic heart disease of [place] coronary artery without angina pectoris (6) GERD (gastroesophageal reflux disease) Onset Date: 12/05/17 Current Visit: Yes Status: Chronic Qualifiers: Esophagitis presence: without esophagitis Qualified Code(s): K21.9 - Gastro -esophageal reflux disease without esophagitis (7) HTN (hypertension) Onset Date: 12/05/17 Current Visit: Yes Status: Chronic Qualifiers: Hypertension type: essential hypertension Qualified Code(s): I10 - Essential (primary) hypertension - Plan Patient is currently awaiting clinical improvement. Neurology consultation is pending at this time. If patient continues to improve in next 24-48 hr will transfer patient to the regular floor. Discharge Plan: Other Plan to discharge in: Greater than 2 days - Code Status/Comfort Care Code Status Assessed: Yes Critical Care: Yes
--- NOTE | 2017-12-06 13:24 | PN ---
Subjective: Ms. Ledbetter seems to be improving a lot with her mental status. There are no cardiac i ssues outstanding now. Her most recent pCO2 was 51. I believe in every way that this is hypoventila tion causing all of her clinical issues right now. Please call Cardiology back if he wishes to evalu ate any other issues, but as of now, I am signing off Ms. Ledbetter's case [facility] FLORES/JUANJOSE Voice ID: [id number] Report ID: [id number]
--- NOTE | 2017-12-06 20:24 | CON ---
Reason For Consultation: Consultation called because of altered mental status. History Of Present Illness: Mr. Ledbetter is a 77-year-old, right-handed patient who comes into [facility] with confusion and is admitted on the 04 of December. Today is the 06 of December. The patient's daughter who is at bedside said that over the last 2 years she has had a slo wly progressive decline in cognitive functioning with problems recalling the names of familiar people , getting her thoughts and words out and finding the location of places she is familiar with. The da wernerhter said that she rarely would forget to take her medicines, however. Over the last few days prio r to admission around today, she became more acutely confused, disoriented and had problems interacti ng in her usual way. She was brought to [facility], where head CT scan showed small vessel ischemic disease without acute ischemic or hemorrhagic change. Subsequent brain MRI identified mild- to-moderate small-vessel ischemic disease with no acute ischemic or hemorrhagic change. No evidence of central nervous system infection, aneurysms or hydrocephalus. She did have an electroencephalogra m that was unremarkable. Carotid artery ultrasound studies showed moderate plaque in the right carot id bulb resulting in around 45% stenosis. Echocardiogram showed ejection fraction of 69% with left v entricular hypertrophy. Dilated left atrium. Mitral annular calcification. Aortic sclerosis, but n o stenosis. Mitral regurgitation and trace tricuspid regurgitation. At the time of my evaluation, t he patient is actually back towards her baseline level of cognitive function. She was on BiPAP and t hat was taken off and just put on nasal cannula. She is awake, interactive, followed all commands ap propriately. The patient's daughter denied that she has ever had a stroke, seizure, head trauma with loss of consc iousness, use of alcohol or illegal drugs or any prescription medications that alter cognitive functi oning at least that she is aware of. Past Medical History: Glaucoma, coronary artery disease, dyslipidemia, hypertension, history of canc er. Surgical History: , hysterectomy, coronary artery bypass grafting. Allergies: NO KNOWN DRUG ALLERGIES. Home Medications: Aspirin 81 mg daily, atorvastatin daily. She has glaucoma eyedrops twice daily. She takes oxygen 2 L by nasal cannula at home, metoprolol 25 mg daily, amlodipine 2.5 mg daily, losar duenas 10 mg daily. Family History: Noncontributory. Social History: No alcohol, tobacco, or IV drug use, and daughters are involved in her care. Review of Systems: Aside from mentioned above, no arthralgias, myalgias, rashes, psychiatric complaints, gastrointestina l or genitourinary issues. Physical Examination: Vital Signs: Blood pressure 119/89, pulse 68, respiratory rate 15, temperature 98.7, oxygen saturati on 95% on CPAP BiPAP. Weight 166 pounds, height 5 feet 1 inch, BMI 31.5. General: Ms. Ledbetter is in the ICU, resting comfortably. She is in no acute distress. HEENT: She is normocephalic, atraumatic. Her sclerae are anicteric. She does have anisocoria. Sli ghtly larger pupils on her right than on the left, but she has good responses to light on either eye. Neurologic: Her cranial nerves show no deficits on 2 through 12. Motor: She has no weakness focall y in the upper and lower extremities. Sensory: Stocking-glove loss, light touch, temperature. Refl exes are trace in the upper and lower extremities. Coordination intact in the upper and lower extrem ities. Laboratory Studies: Her white blood cell count is currently 18.5 with 91.2% neutrophils. Hemoglobin and hematocrit are unremarkable. Coagulation panel shows INR that is normal at 1.08. Currently, he r arterial blood gas shows pH 7.38, pCO2 63.5, PO2 85.9. Her chemistries show a BUN of 34, glucose 1 73, calcium 8.2, magnesium 2.1. Her liver function studies remarkable for slightly elevated alkaline phosphatase 162, otherwise normal. Procalcitonin normal at less than 0.05. Lactic acid normal at 0 .9. Urinalysis on admission, positive for nitrites, esterase, white blood cells 20/50, greater than 50 bacteria, 1+ protein, 1+ blood, and her cultures showed E coli on urine. Assessment: Ms. Ledbetter is a 77-year-old patient with Escherichia coli urinary tract infection and encephalopathy that is toxic and related to Escherichia coli urinary tract infection. That is superi mposed on a chronic likely vascular dementia. She does not have a cerebral anatomical pattern consis tent with Alzheimer's disease. The patient seemed to be towards her baseline level of functioning at this time. She has no evidence of seizures, hydrocephalus, again stroke. Plan: 1.She should continue with aggressive treatment of the urinary tract infection as per primary team. 2.Aspirin 81 mg daily. 3.Lipitor high-dose 40 mg at bedtime. 4.Lovenox for DVT prophylaxis. 5.Okay to continue with thiamine 100 mg daily with blood pressure control as needed. After discharge, she follows up in Dr. Todd's clinic within a month. We will do a formal dementi a workup. RAVI/JUANJOSE Voice ID: [id number] Report ID: [id number]
[2017-12-06] MEDS: predniSONE 10 MG TAB PO SCH (20:30)
[2017-12-06] MEDS: ATORVASTATIN 40 MG TAB PO SCH (20:30)
[2017-12-07 04:56] LABS: Absolute Lymphocytes (CBC) 1.2 K/uL (0.7-4.9); Absolute Monocytes 0.7 K/uL (0.1-1.3); Basophils % 0.1 % (0-1.3); Lymphocytes % 8.8 % (15.3-44.8); MCH 28.5 pg (27.0-35.0); MCV 87.6 fL (80-100); MPV 7.9 fL (7.6-11.3); Monocytes % 4.8 % (3.3-12.3); RBC Red Blood Cell Count 4.34 M/uL (3.86-4.86)
[2017-12-07 05:09] LABS: Magnesium 2.2 mg/dL (1.8-2.4); Potassium 4.7 mmol/L (3.5-5.1)
[2017-12-07] MEDS: METOPROLOL TAR 25 MG TAB PO SCH ×2 (06:00→18:00)
[2017-12-07] MEDS: ARFORMOTEROL TARTRATE 15 MCG/2 ML VIAL.NEB NEB SCH ×2 (07:59→20:12)
[2017-12-07] MEDS: ASPIRIN EC 81 MG TAB PO SCH (08:38)
[2017-12-07] MEDS: levoFLOXacin 500 MG TAB PO SCH (08:38)
[2017-12-07] MEDS: AMLODIPINE 5 MG TAB PO SCH (08:38)
[2017-12-07] MEDS: THIAMINE 200 MG/2 ML INJ IVP SCH (08:38)
[2017-12-07] MEDS: predniSONE 10 MG TAB PO SCH ×2 (08:38→20:25)
[2017-12-07] MEDS: ENOXAPARIN 40 MG/0.4 ML SQ SCH (08:39)
--- NOTE | 2017-12-07 09:51 | P.PN ---
Subjective Date of Service: 12/07/17 Primary Care Provider: Dr. Quevedo; Cardiology-Dr. Jaramillo; Pulmonary-Dr. Frank Chief Complaint: Altered mental status Subjective: Improving Patient has improved significantly she is alert responsive cooperative members present at the bedside and please with recovery denies any complaints Review of Systems Unremarkable Physical Examination - Vital Signs Temperature: 97.2 F Blood Pressure: 121/42 Pulse: 64 Respirations: 16 Pulse Ox (%): 99 - Physical Exam General: Alert, Oriented x3 Respiratory: Clear to auscultation bilaterally Cardiovascular: No edema, Normal S1 S2 Gastrointestinal: Normal bowel sounds, Soft and benign - Studies Medications List Reviewed: Yes Assessment & Plan - Problems (Diagnosis) (1) Respiratory failure Onset Date: 12/05/17 Current Visit: Yes Status: Acute Plan: Patient has improved significantly possible underlying obstructive airways disease she was hypoxic hypercapnic apparently was taking Advair at home with no relief Brovana seems to help for a lot Qualifiers: Chronicity: acute on chronic Respiratory failure complication: hypoxia and hypercapnia Qualified Code(s): J96.21 - Acute and chronic respiratory failure with hypoxia; J96.22 - Acute and chronic respiratory failure with hypercapnia (2) Altered mental status Current Visit: Yes Status: Acute Plan: Patient was probably encephalopathic has UTI puller over to low-dose Bactrim transfer floor continue with thiamine Qualifiers: Altered mental status type: delirium Qualified Code(s): R41.0 - Disorientation, unspecified
--- NOTE | 2017-12-07 15:03 | P.PN ---
Subjective Date of Service: 12/07/17 Primary Care Provider: Dr. Quevedo; Cardiology-Dr. Jaramillo; Pulmonary-Dr. Frank Chief Complaint: Altered mental status Patient seen and examined at bedside with RN. Chart reviewed. Case discussed with pulmonology at this time. Doing well overall. Still appears to be intermittently confused. Alert and oriented x2. Patient currently off of BiPAP and on nasal cannula at this time Review of Systems 10-point ROS is otherwise unremarkable Physical Examination - Vital Signs Temperature: 97.2 F Blood Pressure: 95/49 Pulse: 70 Respirations: 20 Pulse Ox (%): 93 - Physical Exam General: Alert, In no apparent distress, Oriented x3, Confused (Intermittent) HEENT: Atraumatic, PERRLA, EOMI Neck: Supple, JVD not distended Respiratory: Normal air movement, Expiratory wheezes, Inspiratory wheezes Cardiovascular: Regular rate/rhythm, Normal S1 S2 Gastrointestinal: Normal bowel sounds, No tenderness Musculoskeletal: No tenderness Integumentary: No rashes Neurological: Normal speech, Normal tone, Normal affect Lymphatics: No axilla or inguinal lymphadenopathy - Studies Medications List Reviewed: Yes Assessment And Plan - Current Problems (Diagnosis) (1) Respiratory failure Onset Date: 12/05/17 Current Visit: Yes Status: Acute Plan: Acute hypercapnic respiratory failure most likely secondary to COPD exacerbation -patient weaned off of BiPAP at this time. -on duonebs, steroids, oxygen -pulmonology consulted recommendations appreciated at this time Qualifiers: Chronicity: acute on chronic Respiratory failure complication: hypoxia and hypercapnia Qualified Code(s): J96.21 - Acute and chronic respiratory failure with hypoxia; J96.22 - Acute and chronic respiratory failure with hypercapnia (2) Acute encephalopathy Onset Date: 12/05/17 Current Visit: Yes Status: Acute Plan: Acute encephalopathy most likely secondary to toxic metabolic syndrome secondary to UTI versus hypercapnia -currently patient is alert and oriented x3 however does have intermittent confusion along with hallucination -initial head CT negative for any acute abnormality, MRI negative for any acute abnormality as well -neurology consulted appreciated recommendations at this time. Does note underlying dementia (3) COPD exacerbation Onset Date: 12/05/17 Current Visit: Yes Status: Acute Plan: COPD exacerbation most likely secondary infection -weaned off of BiPAP to nasal cannula now. -duo nebs, steroids, oxygen -pulmonology consulted appreciated recommendations at this time -will need long-acting beta agonist along with steroids when ready for discharge home (4) UTI (urinary tract infection) Onset Date: 12/05/17 Current Visit: Yes Status: Acute Plan: UA concerning for urinary tract infection -urine culture positive for E. coli -switched to p.o. Levaquin at this time Qualifiers: Urinary tract infection type: acute cystitis Hematuria presence: without hematuria Qualified Code(s): N30.00 - Acute cystitis without hematuria (5) CAD (coronary artery disease) Onset Date: 12/05/17 Current Visit: Yes Status: Chronic Qualifiers: Coronary Disease-Associated Artery/Lesion type: [place] artery [place] vs. transplanted heart: [place] heart Associated angina: without angina Qualified Code(s): I25.10 - Atherosclerotic heart disease of [place] coronary artery without angina pectoris (6) GERD (gastroesophageal reflux disease) Onset Date: 12/05/17 Current Visit: Yes Status: Chronic Qualifiers: Esophagitis presence: without esophagitis Qualified Code(s): K21.9 - Gastro -esophageal reflux disease without esophagitis (7) HTN (hypertension) Onset Date: 12/05/17 Current Visit: Yes Status: Chronic Qualifiers: Hypertension type: essential hypertension Qualified Code(s): I10 - Essential (primary) hypertension - Plan Patient is currently awaiting clinical improvement. Will transfer patient to the regular floor will get physical therapy consultation at this time. Discharge Plan: Home Plan to discharge in: 72 Hours - Code Status/Comfort Care Code Status Assessed: Yes Critical Care: Yes
[2017-12-07] MEDS: SMZ./TMP. 800/160 MG TABLET PO SCH (20:25)
[2017-12-07] MEDS: ATORVASTATIN 40 MG TAB PO SCH (20:25)
[2017-12-08] MEDS: METOPROLOL TAR 25 MG TAB PO SCH ×2 (06:34→17:42)
[2017-12-08] MEDS: ARFORMOTEROL TARTRATE 15 MCG/2 ML VIAL.NEB NEB SCH ×2 (07:57→20:20)
[2017-12-08] MEDS: SMZ./TMP. 800/160 MG TABLET PO SCH ×2 (07:58→20:41)
[2017-12-08] MEDS: THIAMINE HCL 100 MG TABLET PO SCH (07:58)
[2017-12-08] MEDS: predniSONE 10 MG TAB PO SCH ×2 (07:58→20:41)
[2017-12-08] MEDS: ASPIRIN EC 81 MG TAB PO SCH (07:58)
[2017-12-08] MEDS: ENOXAPARIN 30 MG/0.3 ML SQ SCH (08:00)
--- NOTE | 2017-12-08 10:56 | P.PN ---
Subjective Date of Service: 12/08/17 Primary Care Provider: Dr. Quevedo; Cardiology-Dr. Jaramillo; Pulmonary-Dr. Frank Chief Complaint: Altered mental status Patient seen and examined at bedside with RN. Chart reviewed. Case discussed with pulmonology at this time. Doing well overall. Still appears to be intermittently confused. Alert and oriented x2. Patient currently off of BiPAP and on nasal cannula at this time Review of Systems 10-point ROS is otherwise unremarkable Physical Examination - Vital Signs Temperature: 97.0 F Blood Pressure: 123/59 Pulse: 57 Respirations: 20 Pulse Ox (%): 93 - Physical Exam General: Alert, In no apparent distress, Oriented x3, Confused (Intermittent) HEENT: Atraumatic, PERRLA, EOMI Neck: Supple, JVD not distended Respiratory: Clear to auscultation bilaterally, Normal air movement Cardiovascular: Regular rate/rhythm, Normal S1 S2 Gastrointestinal: Normal bowel sounds, No tenderness Musculoskeletal: No tenderness Integumentary: No rashes Neurological: Normal speech, Normal tone, Normal affect Lymphatics: No axilla or inguinal lymphadenopathy - Studies Medications List Reviewed: Yes Assessment And Plan - Current Problems (Diagnosis) (1) Respiratory failure Onset Date: 12/05/17 Current Visit: Yes Status: Acute Plan: Acute hypercapnic respiratory failure most likely secondary to COPD exacerbation -patient weaned off of BiPAP at this time. -on duonebs, steroids, oxygen -pulmonology consulted recommendations appreciated at this time Qualifiers: Chronicity: acute on chronic Respiratory failure complication: hypoxia and hypercapnia Qualified Code(s): J96.21 - Acute and chronic respiratory failure with hypoxia; J96.22 - Acute and chronic respiratory failure with hypercapnia (2) Acute encephalopathy Onset Date: 12/05/17 Current Visit: Yes Status: Acute Plan: Acute encephalopathy most likely secondary to toxic metabolic syndrome secondary to UTI versus hypercapnia -currently patient is alert and oriented x3 however does have intermittent confusion along with hallucination -initial head CT negative for any acute abnormality, MRI negative for any acute abnormality as well -neurology consulted appreciated recommendations at this time. Does note underlying dementia (3) COPD exacerbation Onset Date: 12/05/17 Current Visit: Yes Status: Acute Plan: COPD exacerbation most likely secondary infection -weaned off of BiPAP to nasal cannula now. -duo nebs, steroids, oxygen -pulmonology consulted appreciated recommendations at this time -will need long-acting beta agonist along with steroids when ready for discharge home (4) UTI (urinary tract infection) Onset Date: 12/05/17 Current Visit: Yes Status: Acute Plan: UA concerning for urinary tract infection -urine culture positive for E. coli -switched to p.o. bactrim at this time Qualifiers: Urinary tract infection type: acute cystitis Hematuria presence: without hematuria Qualified Code(s): N30.00 - Acute cystitis without hematuria (5) CAD (coronary artery disease) Onset Date: 12/05/17 Current Visit: Yes Status: Chronic Qualifiers: Coronary Disease-Associated Artery/Lesion type: [place] artery [place] vs. transplanted heart: [place] heart Associated angina: without angina Qualified Code(s): I25.10 - Atherosclerotic heart disease of [place] coronary artery without angina pectoris (6) GERD (gastroesophageal reflux disease) Onset Date: 12/05/17 Current Visit: Yes Status: Chronic Qualifiers: Esophagitis presence: without esophagitis Qualified Code(s): K21.9 - Gastro -esophageal reflux disease without esophagitis (7) HTN (hypertension) Onset Date: 12/05/17 Current Visit: Yes Status: Chronic Qualifiers: Hypertension type: essential hypertension Qualified Code(s): I10 - Essential (primary) hypertension (8) Dementia Current Visit: Yes Status: Chronic - Plan Patient is currently awaiting clinical improvement. Pending CM consult for Discharge to SNF vs Home with HH Discharge Plan: Other Plan to discharge in: 48 Hours - Code Status/Comfort Care Code Status Assessed: Yes Critical Care: No
[2017-12-08] MEDS: IPRATROPIUM BROM 0.5MG/2.5ML NEB PRN (20:20)
[2017-12-08] MEDS: ATORVASTATIN 40 MG TAB PO SCH (20:41)
[2017-12-09] MEDS: METOPROLOL TAR 25 MG TAB PO SCH (06:42)
[2017-12-09] MEDS: ARFORMOTEROL TARTRATE 15 MCG/2 ML VIAL.NEB NEB SCH (08:21)
[2017-12-09] MEDS: predniSONE 10 MG TAB PO SCH (08:37)
[2017-12-09] MEDS: ENOXAPARIN 30 MG/0.3 ML SQ SCH (08:37)
[2017-12-09] MEDS: SMZ./TMP. 800/160 MG TABLET PO SCH (08:37)
[2017-12-09] MEDS: ASPIRIN EC 81 MG TAB PO SCH (08:37)
[2017-12-09] MEDS: THIAMINE HCL 100 MG TABLET PO SCH (08:37)
[2017-12-09] MEDS ORDERED: NYSTATIN PWDR 100000 UNIT/GM TOP SCH (09:00)
--- NOTE | 2017-12-09 14:49 | P.DS ---
Admission Date: 12/04/17 Discharge Date: 12/09/17 Primary Care Provider: Dr. Quevedo; Cardiology-Dr. Jaramillo; Pulmonary-Dr. Frank Disposition: ROUTINE DISCHARGE Discharge Condition: FAIR Reason for Admission: Altered mental status - Problems (1) Respiratory failure Onset Date: 12/05/17 Current Visit: Yes Status: Acute Qualifiers: Chronicity: acute on chronic Respiratory failure complication: hypoxia and hypercapnia Qualified Code(s): J96.21 - Acute and chronic respiratory failure with hypoxia; J96.22 - Acute and chronic respiratory failure with hypercapnia (2) Acute encephalopathy Onset Date: 12/05/17 Current Visit: Yes Status: Acute (3) COPD exacerbation Onset Date: 12/05/17 Current Visit: Yes Status: Acute (4) UTI (urinary tract infection) Onset Date: 12/05/17 Current Visit: Yes Status: Acute Qualifiers: Urinary tract infection type: acute cystitis Hematuria presence: without hematuria Qualified Code(s): N30.00 - Acute cystitis without hematuria (5) CAD (coronary artery disease) Onset Date: 12/05/17 Current Visit: Yes Status: Chronic Qualifiers: Coronary Disease-Associated Artery/Lesion type: [place] artery [place] vs. transplanted heart: [place] heart Associated angina: without angina Qualified Code(s): I25.10 - Atherosclerotic heart disease of [place] coronary artery without angina pectoris (6) GERD (gastroesophageal reflux disease) Onset Date: 12/05/17 Current Visit: Yes Status: Chronic Qualifiers: Esophagitis presence: without esophagitis Qualified Code(s): K21.9 - Gastro -esophageal reflux disease without esophagitis (7) HTN (hypertension) Onset Date: 12/05/17 Current Visit: Yes Status: Chronic Qualifiers: Hypertension type: essential hypertension Qualified Code(s): I10 - Essential (primary) hypertension (8) Dementia Current Visit: Yes Status: Chronic Brief History of Present Illness: Patient is 77 years of age well known to me with a history of obstructive airways disease sleep apnea admitted with altered mental status. This started about 2 days prior to admission seen in my office 1 or 2 weeks ago patient very anxious short of breath and was started on bronchodilators he is she still continued to have symptoms. Patient was found to be hypoxic hypercapnic still confused Hospital Course: Overall during the hospital stay patient remained stable Patient was initially admitted to the hospital for altered mental status most likely secondary to toxic encephalopathy versus acute hypercapnic respiratory failure. Patient had acute respiratory failure most likely secondary to COPD exacerbation was kept on duo nebs, steroids, BiPAP here in the hospital and did well overall. Pulmonology was consulted who agreed with the above plan and patient was successfully weaned off a wide BiPAP to nasal cannula. Patient was also found to have a urinary tract infection causing her toxic metabolic encephalopathy. Patient was started initially on IV Levaquin and was switched over to oral Bactrim once the sensitivities were positive for E. coli. Patient had marked improvement in her mentation and was able to walk with physical therapy and tolerate diet and thus was discharged home under stable condition. Patient was asked to follow up with primary care provider in about 1-2 days post discharge. Patient was also asked to follow up with pulmonology in about 1 -2 days post discharge. Vital Signs/Physical Exam: Temp Pulse Resp BP Pulse Ox 96.7 F L 140 H 17 144/63 H 91 12/09/17 12:00 12/09/17 12:00 12/09/17 12:00 12/09/17 12:00 12/09/17 12:00 General: Alert, In no apparent distress HEENT: Atraumatic, PERRLA, EOMI Neck: Supple, JVD not distended Respiratory: Clear to auscultation bilaterally, Normal air movement Cardiovascular: Regular rate/rhythm, Normal S1 S2 Gastrointestinal: Normal bowel sounds, No tenderness Musculoskeletal: No tenderness Integumentary: No rashes Neurological: Normal speech, Normal tone, Normal affect Lymphatics: No axilla or inguinal lymphadenopathy Laboratory Data at Discharge: WBC 13.9 K/uL (4.3-10.9) H D 12/07/17 04:23 Hgb 12.4 g/dL (12.0-15.0) 12/07/17 04:23 Hct 38.0 % (36.0-45.0) 12/07/17 04:23 Plt Count 213 K/uL (152-406) 12/07/17 04:23 PT 12.7 SECONDS (9.5-12.5) H 12/04/17 09:53 INR 1.08 12/04/17 09:53 Sodium 141 mmol/L (136-145) 12/07/17 04:23 Potassium 4.7 mmol/L (3.5-5.1) 12/07/17 04:23 BUN 38 mg/dL (7-18) H 12/07/17 04:23 Creatinine 1.20 mg/dL (0.55-1.3) 12/07/17 04:23 Glucose 137 mg/dL (74-106) H 12/07/17 04:23 Magnesium 2.2 mg/dL (1.8-2.4) 12/07/17 04:23 Total Bilirubin 0.4 mg/dL (0.2-1.0) 12/04/17 09:53 AST 22 U/L (15-37) 12/04/17 09:53 ALT 22 U/L (12-78) 12/04/17 09:53 Alkaline Phosphatase 162 U/L (45-117) H 12/04/17 09:53 Troponin I < 0.02 ng/mL (0.0-0.045) 12/04/17 22:45 Triglycerides 87 mg/dL (<150) 12/05/17 04:57 Cholesterol 111 mg/dL (<200) 12/05/17 04:57 HDL Cholesterol 35 mg/dL (40-60) L 12/05/17 04:57 Cholesterol/HDL Ratio 3.17 12/05/17 04:57 Lipase 83 U/L (73-393) 12/04/17 09:53 Home Medications: Lovastatin 1 tab PO DAILY 02/22/17 Metoprolol Tartrate 1 tab PO BID 02/22/17 Timolol Maleate 1 gtts EACH EYE BID 02/22/17 Amlodipine [Norvasc*] 2.5 mg PO DAILY 02/23/17 Aspirin [Aspirin EC 81 MG] 81 mg PO DAILY 02/23/17 Brimonidine Tartrate 1 gtt OP BID 02/23/17 Latanoprost/Pf [Latanoprost 0.005% Eye Drop] 1 drop EACH EYE BEDTIME 12/06/17 Arformoterol Tartrate [Brovana] 15 mcg NEB BIDRESP #60 vial.neb 12/07/17 Thiamine HCl [Vitamin B-1*] 100 mg PO DAILY #30 tablet 12/07/17 Smz./Tmp. [Bactrim Ds 800 MG/160 MG] 1 tab PO BID #28 tab 12/09/17 New Medications: Arformoterol Tartrate [Brovana] 15 mcg NEB BIDRESP #60 vial.neb Smz./Tmp. [Bactrim Ds 800 MG/160 MG] 1 tab PO BID #28 tab Thiamine HCl [Vitamin B-1*] 100 mg PO DAILY #30 tablet Patient Discharge Instructions: Patient will need a home nebulizers medication faxed to the pharmacy. - to take a multivitamin in addition to thymine at home Diet: Regular Activity: Ad nadya Followup: Dixon Frank MD [ACTIVE - CAN ADMIT] - Dayton Todd MD [ASSOCIATE-ACTIVE - CAN ADMIT] - Ashlee Quevedo DO [Primary Care Provider] -
== END 2017-12-09 17:20 | disposition home health service (06) | DRG 189 ==
LOC: ER 08:17 → ERHOLD 11:19 → 3RD-ICU 13:13 → 4TH 12-07 15:20
PROVIDERS: ADMIT Family Medicine; ATTEND Family Medicine
PROC: 5A09457 Assistance with Respiratory Ventilation, 24-96 Consecutive Hours, Continuous Positive Airway Pressure (ICD-10-PCS; principal; 2017-12-04)
DX: J96.21 Acute and chronic respiratory failure with hypoxia (principal); G92 Toxic encephalopathy; J44.1 Chronic obstructive pulmonary disease with (acute) exacerbation; N30.00 Acute cystitis without hematuria; J96.22 Acute and chronic respiratory failure with hypercapnia; I25.10 Atherosclerotic heart disease of native coronary artery without angina pectoris; K21.9 Gastro-esophageal reflux disease without esophagitis; I10 Essential (primary) hypertension; B96.20 Unspecified Escherichia coli [E. coli] as the cause of diseases classified elsewhere; E78.00 Pure hypercholesterolemia, unspecified; Z95.1 Presence of aortocoronary bypass graft; Z85.42 Personal history of malignant neoplasm of other parts of uterus; Z66 Do not resuscitate; H40.9 Unspecified glaucoma; Z87.891 Personal history of nicotine dependence; G47.33 Obstructive sleep apnea (adult) (pediatric); F01.50 Vascular dementia, unspecified severity, without behavioral disturbance, psychotic disturbance, mood disturbance, and anxiety
CPT/HCPCS: 36415; 51702; 70450; 70551; 71045; 80048; 80061; 80076; 81003; 81015; 82550; 82553; 82607; 82805; 83605; 83690; 83735; 84145; 84439; 84443; 84484; 85025; 85610; 87040; 87077; 87086; 87088; 87186; 93005; 93306; 93880; 94640; 94660; 96365; 96375; 97163; 99285; J0696; J1650; J1940; J2920; J2930; J3411; J3475; J7512; J7605

== ENCOUNTER 2018-03-12 09:47 | Inpatient (IN) | payer OTHER ==
--- OUTSIDE RECORDS SUMMARY | 2018-03-12 09:49 | XMS REPORT ---
:1940 Author Organization [employer] Care Team Providers Name Role Phone Quevedo, Na Provider Role Unavailable Allergies No Known Allergies Problems Problem Type Condition Code Onset Dates Condition Status Problem Mixed hyperlipidemia E78.2 Active Problem CAD (coronary artery disease), I25.10 Active [place] coronary artery Problem Urinary incontinence R32 Active [...] Medications Results No Known Results Summary Purpose [email or web address] Submission
--- OUTSIDE RECORDS SUMMARY | 2018-03-12 09:49 | XMS REPORT ---
[...] Problem CAD (coronary artery disease), I25.10 Active [place] coronary artery Problem Urinary incontinence R32 Active [...] Assessment CAD (coronary artery disease), I25.10 Active [place] coronary artery Assessment Mixed hyperlipidemia E78.2 Active Problem Dependence on supplemental oxygen Z99.81 Active Problem Chronic atrial fibrillation I48.2 Active Problem At risk for falling Z91.81 Active Problem Leucocytosis D72.829 Active Medications Medication Code Code Instructions Start End Status Dosage System Date Date Lovastatin [facility] 08104034841 10 MG Orally Active 1 tablet Once a day with a meal Metoprolol [facility] 52973982569 25 MG Orally Active 1 tablet Tartrate Twice a day with food Caltrate 600+D [facility] 87760835612 600-800 MG-UNIT Active 1 tablet Orally Once a with a meal day Xalatan [facility] 93758922106 0.005 % Active 1 drop into Ophthalmic Once affected a day eye in the evening Norvasc [facility] 87833786875 5 MG Orally Once Active 1 tablet a day Results No Known Results Summary Purpose [employer] Submission
--- NOTE | 2018-03-12 10:34 | RAD REPORT ---
EXAM DESCRIPTION: RAD - Chest Single View - 03/12/2018 10:27 am CLINICAL HISTORY: SOB Chest pain. COMPARISON: Chest Single View dated 12/04/2017; Chest Single View dated 02/22/2017; Chest Pa And Lat (2 Views) dated 08/08/2016; CHEST SINGLE VIEW dated 11/10/2009 FINDINGS: Portable technique limits examination quality. Mild interstitial pulmonary edema. Small bilateral pleural effusions. The heart is moderately enlarge d in size with sternotomy wires present. No displaced fractures. IMPRESSION: Mild CHF versus volume overload pattern.
[2018-03-12 10:54] LABS: Absolute Lymphocytes (CBC) 1.8 K/uL (0.7-4.9); Absolute Monocytes 0.7 K/uL (0.1-1.3); Absolute Neutrophil 10.2 K/uL (1.8-8.0); Basophils % 0.2 % (0-1.3); Eosinophils % 1.3 % (0-4.4); Hematocrit 39.7 % (36.0-45.0); Lymphocytes % 13.8 % (15.3-44.8); Monocytes % 5.7 % (3.3-12.3); RBC Red Blood Cell Count 4.55 M/uL (3.86-4.86)
[2018-03-12] MEDS ORDERED: METHYLPREDNISOLONE 125 MG INJ ONE (11:12)
[2018-03-12] MEDS ORDERED: ALBUTEROL 2.5 MG/3 ML NEB SOL ONE (11:13)
[2018-03-12] MEDS ORDERED: ONDANSETRON 4 MG/2 ML VIAL ONE (11:13)
[2018-03-12] MEDS ORDERED: IPRATROPIUM BROM 0.5MG/2.5ML ONE (11:13)
[2018-03-12 12:07] LABS: Protime INR 1.16
[2018-03-12 12:13] LABS: ALT/SGPT 12 U/L (12-78); AST/SGOT 11 U/L (15-37); Albumin 2.7 g/dL (3.4-5.0); Alkaline Phosphatase 121 U/L (45-117); BUN Blood Urea Nitrogen 15 mg/dL (7-18); Bicarbonate 33 mmol/L (21-32); Bilirubin Direct 0.1 mg/dL (0-0.2); Bilirubin Total 0.4 mg/dL (0.2-1.0); Glucose Level 101 mg/dL (74-106); Magnesium 1.8 mg/dL (1.8-2.4); NT PRO-BNP 703 pg/mL (<450); Potassium 3.8 mmol/L (3.5-5.1); Protein, Total 6.8 g/dL (6.4-8.2); Sodium Level 145 mmol/L (136-145); Troponin (Emerg Dept Use Only) < 0.02 ng/mL (0.0-0.045)
[2018-03-12 12:14] LABS: Urine Bacteria <20 /HPF (<20); Urine Culture Reflex Order NOT NEEDED; Urine Mucus 1+ /HPF (NONE SEEN)
[2018-03-12 12:14] LABS: Urine Blood TRACE (NEG); Urine Glucose NEGATIVE (NEG); Urine Protein TRACE (NEG); Urine pH 5.5 (5.0-7.0)
[2018-03-12 12:24] LABS: Arterial Blood Carboxyhemoglob 1.9 % (0-1.5); Blood O2 Saturation 94.5 % (92-98.5)
--- NOTE | 2018-03-12 13:04 | ER ---
Nurse's Notes [facility] Name: Jayne Ledbetter Age: 77 yrs Sex: Female : 1940 Arrival Date: 03/12/2018 Time: 09:48 Bed 13 Private MD: Ashlee Quevedo Diagnosis: Chronic obstructive pulmonary disease, unspecified;Hypoxemia Presentation: 03/12 10:02 Presenting complaint: granddaughter reports that they were battling low oxygen levels ss that began last night. Lowest reading was in the 60's. Also reports patient was having hallucinations last night. Granddaughter is concerned for UTI. Transition of care: patient was not received from another setting of care. Onset of symptoms was March 11, 2018. Risk Assessment: Do you want to hurt yourself or someone else? Patient reports no desire to harm self or others. Initial Sepsis Screen: Does the patient meet any 2 criteria? No. Patient's initial sepsis screen is negative. Does the patient have a suspected source of infection? No. Patient's initial sepsis screen is negative. Care prior to arrival: None. 10:02 Method Of Arrival: Wheelchair ss 10:02 Acuity: KEVIN 2 ss Historical: - Allergies: 10:05 No Known Allergies; ss - Home Meds: 10:10 amlodipine once daily [Active]; lovastatin 10 mg Oral tab 1 tab once daily [Active]; ss aspirin 81 mg Oral chew 1 tab once daily [Active]; metoprolol tartrate 25 mg Oral tab 2 times per day [Active]; Eye Drops x2 for Glaucoma [Active]; - PMHx: 10:05 Cancer; Glaucoma; heart disease; High Cholesterol; Hypertension; ss - PSHx: 10:05 ; Hysterectomy; CABG; ss - Immunization history:: Adult Immunizations up to date. - Social history:: Smoking status: Patient/guardian denies using tobacco. - Ebola Screening: : Patient denies exposure to infectious person Patient denies travel to an Ebola-affected area in the 21 days before illness onset. Screenin:13 Fall Risk No fall in past 12 months (0 pts). No secondary diagnosis (0 pts). IV access ph (20 points). Ambulatory Aid- Crutches/Cane/Walker (15 pts). Gait- Weak (10 pts.). Mental Status- Overestimates/Forgets Limitations (15 pts.). Total Cali Fall Scale indicates High Risk Score (45 or more points). Fall prevention measures have been instituted. Side Rails Up X 2 Placed Close to Nursing Station Frequent Obs/Assessments Occuring Family Present and informed to notify staff if the need to leave the bedside As available patient and family educated on Fall Prevention Program and Strategies. 10:14 Abuse screen: Denies threats or abuse. Denies injuries from another. Nutritional ph screening: No deficits noted. Tuberculosis screening: No symptoms or risk factors identified. Assessment: 10:15 General: Appears in no apparent distress. comfortable, well groomed, Behavior is calm, ph cooperative, appropriate for age, Denies fever, feeling ill. Pain: Denies pain. Neuro: Level of Consciousness is awake, alert, obeys commands, Oriented to person, place, situation, Moves all extremities. Speech is normal, Facial symmetry appears normal, Facial symmetry: tongue is midline. Cardiovascular: Reports shortness of breath, Denies chest pain, Capillary refill < 3 seconds in bilateral fingers Patient's skin is warm and dry. Respiratory: Airway is patent Respiratory effort is even, unlabored, Respiratory pattern is regular, symmetrical, Breath sounds with crackles bilaterally. GI: No signs and/or symptoms were reported involving the gastrointestinal system. Patient currently denies diarrhea, nausea, vomiting. : Denies burning with urination, urinary frequency. Derm: Skin is fragile, is thin, Skin is pink, warm \T\ dry. Musculoskeletal: Circulation, motion, and sensation intact. Range of motion: intact in all extremities. 11:30 Reassessment: Patient appears in no apparent distress at this time. Patient and/or ph family updated on plan of care and expected duration. Pain level reassessed. Patient is alert, oriented x 3, equal unlabored respirations, skin warm/dry/pink. Pt resting quietly, awaiting lab and radiology results, family at bedside. 12:30 Reassessment: Patient appears in no apparent distress at this time. Patient and/or ph family updated on plan of care and expected duration. Pain level reassessed. Patient is alert, oriented x 3, equal unlabored respirations, skin warm/dry/pink. 14:00 Reassessment: Patient appears in no apparent distress at this time. Patient and/or ph family updated on plan of care and expected duration. Pain level reassessed. Patient is alert, oriented x 3, equal unlabored respirations, skin warm/dry/pink. Pt resting quietly, family at bedside, awaiting room assignment. 15:24 Reassessment: Patient appears in no apparent distress at this time. Patient and/or ph family updated on plan of care and expected duration. Pain level reassessed. Pt asleep w/ even, unlabored, O2 saturation noted to decrease while sleeping (down to 75% on 3L), placed on NRB at 7L, maintains Spo2 \T\ 95%. Vital Signs: 10:05 BP 153 / 50; Pulse 72; Resp 24; Temp 97.7(TE); Pulse Ox 58% on R/A; Weight 79.38 kg; ss Height 5 ft. 0 in. (152.40 cm); Pain 8/10; 11:00 BP 141 / 62; Pulse 55; Resp 24; Pulse Ox 92% on 3 lpm NC; ph 11:42 BP 145 / 65; Pulse 60; Resp 22; Pulse Ox 100% on Nebulizer Mask; ph 13:00 BP 148 / 58; Pulse 62; Resp 20; Pulse Ox 94% on 3 lpm NC; ph 14:00 BP 145 / 56; Pulse 64; Resp 22; Pulse Ox 92% on 3 lpm NC; ph 15:37 BP 132 / 75; Pulse 68; Resp 22; Temp 97.8; Pulse Ox 94% on 3 lpm NC; ph 10:05 Body Mass Index 34.18 (79.38 kg, 152.40 cm) ED Course: 09:48 Patient arrived in ED. sb2 09:49 Porsha Lewis RN is Primary Nurse. ph 09:49 Ashlee Quevedo MD is Private Physician. sb2 09:51 William Schultz PA is PHCP. cp 09:51 Catalino Pyle MD is Attending Physician. cp 10:04 Triage completed. ss 10:05 Arm band placed on left wrist. ss 10:13 Patient has correct armband on for positive identification. Placed in gown. Bed in low ph position. Call light in reach. Side rails up X2. school lunch monitor on. Pulse ox on. NIBP on. Warm blanket given. 10:24 X-ray completed. Portable x-ray completed in exam room. Patient tolerated procedure la2 well. 10:29 XRAY Chest (1 view) In Process Unspecified. EDMS 10:38 First set of blood cultures drawn by ED staff. dh3 10:40 EKG done, by generation technologist. reviewed by Catalino Pyle MD. tc 10:58 Urine collected: straight cath specimen, clear. dh3 11:00 Second set of blood cultures drawn by ED staff. dh3 13:02 Kamini Nagy MD is Hospitalizing Provider. cp 15:47 No provider procedures requiring assistance completed. Patient admitted, IV remains in ph place. Administered Medications: 11:25 Drug: SOLU-Medrol 125 mg Route: IVP; Site: right antecubital; ph 15:53 Follow up: Response: No adverse reaction ph 11:28 Drug: Zofran 4 mg Route: IVP; Site: right antecubital; ph 15:53 Follow up: Response: No adverse reaction ph 11:30 Drug: Albuterol - atroVENT (3:1) (2.5 mg - 0.5 mg) 3 ml Route: Nebulizer; ph 15:54 Follow up: Response: No adverse reaction ph Outcome: 13:04 Decision to Hospitalize by Provider. cp 15:52 Admitted to Tele accompanied by tech, family with patient, via stretcher, room 232, ph with oxygen, with chart, Report called to [facility] 15:52 Condition: stable 15:52 Instructed on the need for admit. 15:56 Patient left the ED. ph Signatures: Dispatcher [employer] EDMS Osiris Weaver RN RN ss Chelsey Owusu, bellows tester EKG [facility] Porsha Lewis RN RN ph William Schultz PA PA [place] 3 Freya Erickson la2 Twyla Zaragoza2
--- NOTE | 2018-03-12 13:04 | EDPHYS ---
Physician Documentation [facility] Name: Jayne Ledbetter Age: 77 yrs Sex: Female : 1940 Arrival Date: 03/12/2018 Time: 09:48 Bed 13 Private MD: Ashlee Quevedo ED Physician Catalino Pyle HPI: 03/12 10:05 This 77 yrs old Female presents to ER via Wheelchair with complaints of LOW cp OXYGEN, HALLUCINATIONS. 10:05 The patient presents with visual and auditory hallucinations. cp 10:05 Onset: The symptoms/episode began/occurred today. Possible causes: low oxygen, cp shortness of breath, UTI. Associated signs and symptoms: Pertinent negatives: abdominal pain, chest pain, headache, fever. Current symptoms: In the emergency department the patient's symptoms have improved, markedly. Patient's baseline: Neuro: alert and fully oriented, Motor: no deficits, Ambulation: walks with assist only, uses walker, Speech: normal. Historical: - Allergies: 10:05 No Known Allergies; ss - Home Meds: 10:10 amlodipine once daily [Active]; lovastatin 10 mg Oral tab 1 tab once daily [Active]; ss aspirin 81 mg Oral chew 1 tab once daily [Active]; metoprolol tartrate 25 mg Oral tab 2 times per day [Active]; Eye Drops x2 for Glaucoma [Active]; - PMHx: 10:05 Cancer; Glaucoma; heart disease; High Cholesterol; Hypertension; ss - PSHx: 10:05 ; Hysterectomy; CABG; ss - Immunization history:: Adult Immunizations up to date. - Social history:: Smoking status: Patient/guardian denies using tobacco. - Ebola Screening: : Patient denies exposure to infectious person Patient denies travel to an Ebola-affected area in the 21 days before illness onset. ROS: 10:10 Constitutional: Negative for body aches, chills, fever, poor PO intake. cp 10:10 Cardiovascular: Negative for chest pain, edema, palpitations. cp 10:10 Respiratory: Positive for shortness of breath, Negative for wheezing. 10:10 Abdomen/GI: Negative for abdominal pain, nausea, vomiting, and diarrhea, constipation, black/tarry stool, rectal bleeding. 10:10 Back: Negative for pain at rest, pain with movement, radiated pain. 10:10 Neuro: Negative for headache, numbness, speech changes, weakness. 10:10 Psych: Positive for auditory hallucinations, visual hallucinations. 10:10 All other systems are negative. Exam: 10:20 ECG was reviewed by the Attending Physician. cp 10:20 Constitutional: The patient appears in no acute distress, alert, awake, cp non-diaphoretic, non-toxic, well developed, well nourished. 10:20 Head/Face: Normocephalic, atraumatic. cp 10:20 Eyes: Periorbital structures: appear normal, Pupils: equal, round, and reactive to light and accomodation, Extraocular movements: intact throughout, Conjunctiva: normal, no exudate, no injection, Sclera: no appreciated abnormality, Lids and lashes: appear normal, bilaterally. 10:20 ENT: External ear(s): are unremarkable, Ear canal(s): are normal, clear, TM's: bulging, is not appreciated, bilaterally, dullness, bilaterally, erythema, is not appreciated, bilaterally, Nose: is normal, Mouth: Lips: dry, Oral mucosa: moist, Posterior pharynx: Airway: no evidence of obstruction, patent, swelling, is not appreciated, erythema, is not appreciated, exudate, is not appreciated, Voice: is normal. 10:20 Neck: ROM/movement: is normal, is supple, without pain, no range of motions limitations, no meningismus, no nuchal rigidity. 10:20 Chest/axilla: Inspection: normal, Palpation: is normal, no crepitus, no tenderness. 10:20 Cardiovascular: Rate: normal, Rhythm: regular, Edema: is not appreciated, JVD: is not appreciated. 10:20 Respiratory: the patient does not display signs of respiratory distress, Respirations: labored breathing, is not present, nasal flaring, is not appreciated, intercostal retractions, are absent, shallow respirations, that is mild, Breath sounds: bronchial sounds, are not appreciated, decreased breath sounds, that are moderate, throughout, stridor, is not appreciated, wheezing: is not appreciated. 10:20 Abdomen/GI: Inspection: abdomen appears normal, Bowel sounds: active, all quadrants, Palpation: abdomen is soft and non-tender, in all quadrants, rebound tenderness, is not appreciated, involuntary guarding, is not appreciated. 10:20 Back: pain, is absent, ROM is normal. 10:20 Skin: cellulitis, is not appreciated, no rash present. 10:20 Neuro: Orientation: to person, place \T\ time. Mentation: is normal, Cerebellar function: Romberg testing is negative, Motor: moves all fours, strength is normal, Sensation: no obvious gross deficits. Vital Signs: 10:05 BP 153 / 50; Pulse 72; Resp 24; Temp 97.7(TE); Pulse Ox 58% on R/A; Weight 79.38 kg; ss Height 5 ft. 0 in. (152.40 cm); Pain 8/10; 11:00 BP 141 / 62; Pulse 55; Resp 24; Pulse Ox 92% on 3 lpm NC; ph 11:42 BP 145 / 65; Pulse 60; Resp 22; Pulse Ox 100% on Nebulizer Mask; ph 13:00 BP 148 / 58; Pulse 62; Resp 20; Pulse Ox 94% on 3 lpm NC; ph 14:00 BP 145 / 56; Pulse 64; Resp 22; Pulse Ox 92% on 3 lpm NC; ph 15:37 BP 132 / 75; Pulse 68; Resp 22; Temp 97.8; Pulse Ox 94% on 3 lpm NC; ph 10:05 Body Mass Index 34.18 (79.38 kg, 152.40 cm) ss MDM: 09:54 Patient medically screened. cp 10:35 Differential Diagnosis: electrolyte abnormality, hypoglycemia, intracranial bleed, cp meningitis, pneumonia, UTI, volume depletion, respiratory distress. 12:45 Data reviewed: vital signs, nurses notes, lab test result(s), EKG, radiologic studies, cp plain films. 12:45 Test interpretation: by ED physician or midlevel provider: ECG, plain radiologic cp studies. Counseling: I had a detailed discussion with the patient and/or guardian regarding: the historical points, exam findings, and any diagnostic results supporting the discharge/admit diagnosis, lab results, radiology results. Response to treatment: the patient's symptoms have markedly improved after treatment, and as a result, I will admit patient. 12:45 Physician consultation: Kamini Nagy MD was called at 12:45, was contacted at 12:45, cp regarding admission, to the telemetry unit. patient's condition. 03/12 10:15 Order name: Urine Microscopic Only; Complete Time: 12:37 cp 03/12 12:37 Interpretation: Normal except: URBC 5-10. cp 03/12 10:15 Order name: Basic Metabolic Panel; Complete Time: 12:37 cp 03/12 12:37 Interpretation: Normal except: CO2 33; GFR 61; CA 8.2. cp 03/12 10:15 Order name: CBC with Diff; Complete Time: 11:24 cp 03/12 11:41 Interpretation: Normal except: WBC 12.9; MCHC 31.9; RDW 15.8; SHELL% 79.0; LYM% 13.8; cp NEUT A 10.2. 03/12 10:15 Order name: LFT's; Complete Time: 12:37 cp 03/12 12:37 Interpretation: Normal except: AST 11; ALK 121; ALB 2.7; GLOB 4.1; A/G 0.7. cp 03/12 10:15 Order name: Magnesium; Complete Time: 12:37 cp 03/12 10:15 Order name: NT PRO-BNP; Complete Time: 12:37 cp 03/12 10:15 Order name: PT-INR; Complete Time: 12:37 cp 03/12 10:15 Order name: Troponin (emerg Dept Use Only); Complete Time: 12:37 cp 03/12 10:15 Order name: Influenza Screen (a \T\ B); Complete Time: 11:24 cp 03/12 10:15 Order name: Blood Culture Adult (2) cp 03/12 10:15 Order name: Procalcitonin; Complete Time: 12:37 cp 03/12 10:15 Order name: Lactate; Complete Time: 11:24 cp 03/12 10:58 Order name: Urine Dipstick--Ancillary (enter results) em1 03/12 12:08 Order name: ABG; Complete Time: 12:37 ss 03/12 10:15 Order name: Cath; Complete Time: 10:57 cp 03/12 10:15 Order name: Urine Dipstick-Ancillary (obtain specimen); Complete Time: 10:56 cp 03/12 10:15 Order name: XRAY Chest (1 view); Complete Time: 11:24 cp 03/12 10:15 Order name: EKG; Complete Time: 10:16 cp 03/12 10:15 Order name: Cardiac monitoring; Complete Time: 10:22 cp 03/12 10:15 Order name: EKG - Nurse/Tech; Complete Time: 11:00 cp 03/12 10:15 Order name: IV Saline Lock; Complete Time: : cp 03/12 10:15 Order name: Labs collected and sent; Complete Time: cp 03/12 10:15 Order name: O2 Per Protocol; Complete Time: : cp 03/12 10:15 Order name: O2 Sat Monitoring; Complete Time: : 03/12 11:04 Order name: Misc. Order: recollect labs; Complete Time: 11:20 ss EC:20 Rate is 60 beats/min. Rhythm is regular. MS interval is normal. QRS interval is normal. cp QT interval is normal. Interpreted by me. Reviewed by me. Administered Medications: 11:25 Drug: SOLU-Medrol 125 mg Route: IVP; Site: right antecubital; ph 15:53 Follow up: Response: No adverse reaction ph 11:28 Drug: Zofran 4 mg Route: IVP; Site: right antecubital; ph 15:53 Follow up: Response: No adverse reaction ph 11:30 Drug: Albuterol - atroVENT (3:1) (2.5 mg - 0.5 mg) 3 ml Route: Nebulizer; ph 15:54 Follow up: Response: No adverse reaction ph Disposition: 16:15 Chart complete. cp 17:54 Co-signature as Attending Physician, Catalino Pyle MD. rn Disposition: 03/12/18 13:04 Hospitalization ordered by Kamini Nagy for Observation. Preliminary diagnosis are Chronic obstructive pulmonary disease, unspecified, Hypoxemia. - Bed requested for Telemetry/MedSurg (observation). - Status is Observation. ph - Condition is Stable. - Problem is an acute exacerbation. - Symptoms have improved. UTI on Admission? No Signatures: Dispatcher [employer] Daysi Escobedo RN RN dw Nieto, Roman, MD MD rn Smirch, Shelby, RN RN ss Hall, Patricia, RN RN ph Page, Corey, PA PA cp Corrections: (The following items were deleted from the chart) 12:37 12:37 Normal except: CO2 33; GFR 61. cp cp 15:23 13:04 Hospitalization Ordered by Kamini Nagy MD for Observation. Preliminary diagnosis dw is Chronic obstructive pulmonary disease, unspecified; Hypoxemia. Bed requested for Telemetry/MedSurg (observation). Status is Observation. Condition is Stable. Problem is an acute exacerbation. Symptoms have improved. UTI on Admission? No. cp 15:56 15:23 03/12/2018 13:04 Hospitalization Ordered by Kamini Nagy MD for Observation. ph Preliminary diagnosis is Chronic obstructive pulmonary disease, unspecified; Hypoxemia. Bed requested for Telemetry/MedSurg (observation). Status is Observation. Condition is Stable. Problem is an acute exacerbation. Symptoms have improved. UTI on Admission? No. dw
--- NOTE | 2018-03-12 14:01 | EKG ---
Test Date: 2018-03-12 Test Time: 10:13:04 Pharmaceutical Representative: TC MEASUREMENT RESULTS: Intervals: Rate: 60 IA: 170 QRSD: 76 QT: 448 QTc: 448 [place]: P: -28 IA: 170 QRS: 37 T: 49 INTERPRETIVE STATEMENTS: Sinus rhythm with occasional premature ventricular complexes Otherwise normal ECG Compared to ECG 12/04/2017 08:36:20 Ventricular premature complex(es) now present Electronically Signed On 03-12-18 14:01:01 EMOTIONAL SUPPORT TEACHER by Juan Ng
[2018-03-12 16:58] VITALS: BMI 34.2
--- NOTE | 2018-03-12 18:21 | P.HP ---
Certification for Inpatient Patient admitted to: Observation Practitioner: I am a practitioner with admitting privileges, knowledge of patient current condition, hospital course, and medical plan of care. Services: Services provided to patient in accordance with Admission requirements found in Title 42 Section 412.3 of the Code of Federal Regulations Patient History Date of Service: 03/13/18 Primary Care Provider: Dr. Queevdo Reason for admission: Decreased oxygenation History of Present Illness: This is a 68-year-old female with history of COPD, hypertension, CHF admitted because her oxygenation level at home dropped. This has been happening for the past couple of days. This time, it was noted that she was more confused which is what prompted the family to have patient brought into the ER. Patient uses CPAP at night (unsure if she has any sleep apnea diagnosis) and she sometimes uses oxygen along with CPAP, but only at night. She has not been using it during the day. Patient lives with her granddaughter, the granddaughter states that she works all day and patient is alone at home throughout the day. At baseline, patient is fairly independent, uses a walker to get around the house. In the ER, patient was found to have 50% oxygenation on room air which improved after breathing treatment and steroids. At the time of my exam, patient was sleepy, but arousable. Granddaughter was at bedside. she was satting well on nasal cannula. Allergies No Known Allergies Allergy (Verified 03/12/18 16:27) Home Medications: Lovastatin 1 tab PO DAILY 02/22/17 Metoprolol Tartrate 1 tab PO BID 02/22/17 Timolol Maleate 1 gtts EACH EYE BID 02/22/17 Amlodipine [Norvasc*] 5 mg PO DAILY 02/23/17 Aspirin [Aspirin EC 81 MG] 81 mg PO DAILY 02/23/17 Brimonidine Tartrate 1 gtt EACH EYE BID 02/23/17 Latanoprost/Pf [Latanoprost 0.005% Eye Drop] 1 drop EACH EYE DAILY 12/06/17 - Past Medical/Surgical History Has patient received pneumonia vaccine in the past: Yes Diabetic: No -: HTN -: CAD with prior CABG -: History uterine cancer -: Hyperlipidemia -: Glaucoma -: COPD -: Hyperlipidemia -: CABG -: Hysterectomy -: Psychosocial/ Personal History: She is a . She has several children - Family History Mother History Unknown: Yes Father History Unknown: Yes - Social History Smoking Status: Never smoker Alcohol use: No CD- Drugs: No Caffeine use: Yes Place of Residence: Home Review of Systems 10-point ROS is otherwise unremarkable Physical Examination - Vital Signs Temperature: 97.8 F Blood Pressure: 119/61 Pulse: 67 Respirations: 20 Pulse Ox (%): 98 - Physical Exam General: In no apparent distress, Other (Sleepy though arousable) HEENT: Atraumatic, PERRLA, Mucous membr. moist/pink, EOMI, Sclerae nonicteric Neck: Supple, 2+ carotid pulse no bruit, No LAD, Without JVD or thyroid abnormality Respiratory: Diminished, Crackles/rales, Expiratory wheezes Cardiovascular: Regular rate/rhythm, Normal S1 S2 Gastrointestinal: Normal bowel sounds, No tenderness Musculoskeletal: No clubbing, No swelling Integumentary: No rashes, No breakdown Neurological: Normal gait, Normal speech, Normal strength at 5/5 x4 extr, Normal tone, Normal affect Lymphatics: No axilla or inguinal lymphadenopathy - Studies Laboratory Data (last 24 hrs) 03/12/18 11:16: PT 13.8 H, INR 1.16 03/12/18 11:16: Sodium 145, Potassium 3.8, BUN 15, Creatinine 0.89, Glucose 101 , Magnesium 1.8, Total Bilirubin 0.4, AST 11 L, ALT 12, Alkaline Phosphatase 121 H 03/12/18 10:38: WBC 12.9 H, Hgb 12.7, Hct 39.7, Plt Count 221 Microbiology Data (last 24 hrs): 03/12/18 10:28 Nasopharnyx Influenza Type A Antigen Screen - Final 03/12/18 10:28 Nasopharnyx Influenza Type B Antigen Screen - Final Assessment and Plan - Problems (Diagnosis) (1) Altered mental status Current Visit: No Status: Acute Qualifiers: Altered mental status type: unspecified Qualified Code(s): R41.82 - Altered mental status, unspecified (2) Dementia Current Visit: No Status: Chronic Qualifiers: Dementia type: unspecified type Dementia behavioral disturbance: without behavioral disturbance Qualified Code(s): F03.90 - Unspecified dementia without behavioral disturbance (3) CAD (coronary artery disease) Onset Date: 12/05/17 Current Visit: No Status: Chronic Qualifiers: Coronary Disease-Associated Artery/Lesion type: [place] artery [place] vs. transplanted heart: [place] heart Associated angina: without angina Qualified Code(s): I25.10 - Atherosclerotic heart disease of [place] coronary artery without angina pectoris (4) GERD (gastroesophageal reflux disease) Onset Date: 12/05/17 Current Visit: No Status: Chronic Qualifiers: Esophagitis presence: without esophagitis Qualified Code(s): K21.9 - Gastro -esophageal reflux disease without esophagitis (5) Hyperlipidemia Onset Date: 12/05/17 Current Visit: No Status: Acute (6) COPD exacerbation Onset Date: 12/05/17 Current Visit: No Status: Acute (7) Hypercapnia Onset Date: 12/05/17 Current Visit: No Status: Acute (8) HTN (hypertension) Onset Date: 12/05/17 Current Visit: No Status: Chronic Qualifiers: Hypertension type: essential hypertension Qualified Code(s): I10 - Essential (primary) hypertension - Plan This is a 77-year-old female with: Altered mentation Hypoxic, hypercapnic respiratory distress Sleep apnea COPD Hypertension Congestive heart failure Admit patient to floor, monitor with tele. IV steroids, breathing treatments. Oxygen as needed CPAP at night for sleep apnea. Diuresed with IV Lasix. Continue to monitor via a.m. labs. - Advance Directives Does patient have a Living Will: Yes Does patient have a Durable POA for Healthcare: Yes
[2018-03-12] MEDS: FUROSEMIDE 20 MG/ 2ML VIAL IV SCH (19:20)
[2018-03-12] MEDS: ALBUTEROL 2.5 MG/3 ML NEB SOL NEB SCH (20:00)
[2018-03-13] MEDS: METHYLPREDNISOLONE 40 MG INJ IV SCH ×3 (00:41→17:00)
[2018-03-13] MEDS: ALBUTEROL 2.5 MG/3 ML NEB SOL NEB SCH ×7 (04:18→23:15)
[2018-03-13 05:01] LABS: Absolute Lymphocytes (CBC) 0.9 K/uL (0.7-4.9); Absolute Monocytes 0.2 K/uL (0.1-1.3); Absolute Neutrophil 9.8 K/uL (1.8-8.0); Basophils % 0.3 % (0-1.3); Hematocrit 37.5 % (36.0-45.0); Lymphocytes % 7.9 % (15.3-44.8); MPV 7.9 fL (7.6-11.3); Monocytes % 1.4 % (3.3-12.3); RBC Red Blood Cell Count 4.26 M/uL (3.86-4.86)
[2018-03-13 05:17] LABS: Albumin 2.7 g/dL (3.4-5.0); Bilirubin Total 0.2 mg/dL (0.2-1.0); Magnesium 2.1 mg/dL (1.8-2.4); Phosphorus 4.3 mg/dL (2.5-4.9); Potassium 4.6 mmol/L (3.5-5.1)
[2018-03-13 05:56] LABS: Blood Morphology Comment NOT SEEN (NOT SEEN); Platelet Estimate ADEQ
[2018-03-13] MEDS: FUROSEMIDE 20 MG/ 2ML VIAL IV SCH ×2 (09:02→18:12)
--- NOTE | 2018-03-13 16:11 | P.PN ---
Subjective Date of Service: 03/13/18 Primary Care Provider: Dr. Quevedo Chief Complaint: Decreased oxygenation Subjective: No C/O voiced, Improving Patient seen and examined at bedside. No family at bedside. Chart reviewed and case discussed with nursing staff. Review of Systems 10-point ROS is otherwise unremarkable Physical Examination - Vital Signs Temperature: 97.8 F Blood Pressure: 119/61 Pulse: 67 Respirations: 20 Pulse Ox (%): 98 - Physical Exam General: Alert, In no apparent distress, Oriented x3 HEENT: Atraumatic, PERRLA, EOMI Neck: Supple, JVD not distended Respiratory: Diminished, Crackles/rales Cardiovascular: Regular rate/rhythm, Normal S1 S2 Gastrointestinal: Normal bowel sounds, No tenderness Musculoskeletal: No tenderness Integumentary: No rashes Neurological: Normal speech, Normal tone, Normal affect Lymphatics: No axilla or inguinal lymphadenopathy - Studies Laboratory Data (last 24 hrs) 03/13/18 04:35: Sodium 145, Potassium 4.6, BUN 19 H, Creatinine 0.95, Glucose 153 H, Phosphorus 4.3, Magnesium 2.1, Total Bilirubin 0.2, AST 13 L, ALT 16, Alkaline Phosphatase 124 H 03/13/18 04:35: WBC 10.8 D, Hgb 12.0, Hct 37.5, Plt Count 199 Microbiology Data (last 24 hrs): 03/12/18 10:28 Nasopharnyx Influenza Type A Antigen Screen - Final 03/12/18 10:28 Nasopharnyx Influenza Type B Antigen Screen - Final Assessment And Plan - Current Problems (Diagnosis) (1) Altered mental status Current Visit: No Status: Acute Qualifiers: Altered mental status type: unspecified Qualified Code(s): R41.82 - Altered mental status, unspecified (2) Dementia Current Visit: No Status: Chronic Qualifiers: Dementia type: unspecified type Dementia behavioral disturbance: without behavioral disturbance Qualified Code(s): F03.90 - Unspecified dementia without behavioral disturbance (3) CAD (coronary artery disease) Onset Date: 12/05/17 Current Visit: No Status: Chronic Qualifiers: Coronary Disease-Associated Artery/Lesion type: [place] artery [place] vs. transplanted heart: [place] heart Associated angina: without angina Qualified Code(s): I25.10 - Atherosclerotic heart disease of [place] coronary artery without angina pectoris (4) GERD (gastroesophageal reflux disease) Onset Date: 12/05/17 Current Visit: No Status: Chronic Qualifiers: Esophagitis presence: without esophagitis Qualified Code(s): K21.9 - Gastro -esophageal reflux disease without esophagitis (5) Hyperlipidemia Onset Date: 12/05/17 Current Visit: No Status: Acute (6) COPD exacerbation Onset Date: 12/05/17 Current Visit: No Status: Acute (7) Hypercapnia Onset Date: 12/05/17 Current Visit: No Status: Acute (8) HTN (hypertension) Onset Date: 12/05/17 Current Visit: No Status: Chronic Qualifiers: Hypertension type: essential hypertension Qualified Code(s): I10 - Essential (primary) hypertension - Plan This is a 77-year-old female with: Altered mentation, improving. almost back to baseline Hypoxic, hypercapnic respiratory distress. Improving Sleep apnea COPD Hypertension Congestive heart failure Admit patient to floor, monitor with tele. IV steroids, breathing treatments. Oxygen as needed. If patient may need oxygen issue throughout the day at home as well. CPAP at night for sleep apnea. Continue Diureses with IV Lasix. Continue to monitor via a.m. labs. DVT prophylaxis: Lovenox GI prophylaxis: None Diet: Heart healthy Disposition: Pending symptomatic improvement. Likely discharge in the next 24- 48 hr with outpatient pulmonary follow up
[2018-03-13] MEDS: EYE OPTH SCH ×2 (17:00→20:29)
[2018-03-13] MEDS: BRIMONIDINE 0.2% OPTH SCH ×2 (17:00→20:29)
[2018-03-13] MEDS: TIMOLOL 0.5% OPTH SCH (20:30)
[2018-03-13] MEDS: ATORVASTATIN 10 MG TAB PO SCH (20:31)
[2018-03-13] MEDS: METOPROLOL TAR 25 MG TAB PO SCH (20:31)
[2018-03-13] MEDS ORDERED: TIMOLOL MALEATE 0.5% OPTH 5 ML BTL EACH EYE SCH (21:00)
[2018-03-14] MEDS: METHYLPREDNISOLONE 40 MG INJ IV SCH ×3 (00:15→17:50)
[2018-03-14] MEDS: ALBUTEROL 2.5 MG/3 ML NEB SOL NEB SCH ×6 (03:45→23:40)
[2018-03-14 07:01] LABS: Albumin 2.8 g/dL (3.4-5.0); Bilirubin Total 0.2 mg/dL (0.2-1.0); Potassium 4.2 mmol/L (3.5-5.1); Protein, Total 6.8 g/dL (6.4-8.2)
[2018-03-14] MEDS ORDERED: HOME MED 1 EA UNK (Lovastatin [Lovastatin] 1 TAB) PO SCH (09:00)
[2018-03-14] MEDS: FUROSEMIDE 20 MG/ 2ML VIAL IV SCH ×2 (09:20→17:50)
[2018-03-14] MEDS: BRIMONIDINE 0.2% OPTH SCH ×2 (09:21→21:41)
[2018-03-14] MEDS: EYE OPTH SCH ×2 (09:21→21:41)
[2018-03-14] MEDS: AMLODIPINE 5 MG TAB PO SCH (09:21)
[2018-03-14] MEDS: ASPIRIN EC 81 MG TAB PO SCH (09:21)
[2018-03-14] MEDS: METOPROLOL TAR 25 MG TAB PO SCH ×2 (09:21→21:40)
[2018-03-14] MEDS: TIMOLOL 0.5% OPTH SCH ×2 (09:22→21:41)
--- NOTE | 2018-03-14 15:02 | P.PN ---
Subjective Date of Service: 03/14/18 Primary Care Provider: Dr. Quevedo Chief Complaint: Decreased oxygenation Subjective: No C/O voiced Patient seen and examined at bedside. No family at bedside. Chart reviewed and case discussed with nursing staff. Review of Systems 10-point ROS is otherwise unremarkable Physical Examination - Vital Signs Temperature: 98.5 F Blood Pressure: 146/65 Pulse: 60 Respirations: 20 Pulse Ox (%): 92 - Physical Exam General: Alert, In no apparent distress, Oriented x1 HEENT: Atraumatic, PERRLA, EOMI Neck: Supple, JVD not distended Respiratory: Clear to auscultation bilaterally, Normal air movement Cardiovascular: Regular rate/rhythm, Normal S1 S2 Gastrointestinal: Normal bowel sounds, No tenderness Musculoskeletal: No tenderness Integumentary: No rashes Neurological: Normal speech, Normal tone, Normal affect Lymphatics: No axilla or inguinal lymphadenopathy Assessment And Plan - Current Problems (Diagnosis) (1) Altered mental status Current Visit: No Status: Acute Qualifiers: Altered mental status type: unspecified Qualified Code(s): R41.82 - Altered mental status, unspecified (2) Dementia Current Visit: No Status: Chronic Qualifiers: Dementia type: unspecified type Dementia behavioral disturbance: without behavioral disturbance Qualified Code(s): F03.90 - Unspecified dementia without behavioral disturbance (3) CAD (coronary artery disease) Onset Date: 12/05/17 Current Visit: No Status: Chronic Qualifiers: Coronary Disease-Associated Artery/Lesion type: [place] artery [place] vs. transplanted heart: [place] heart Associated angina: without angina Qualified Code(s): I25.10 - Atherosclerotic heart disease of [place] coronary artery without angina pectoris (4) GERD (gastroesophageal reflux disease) Onset Date: 12/05/17 Current Visit: No Status: Chronic Qualifiers: Esophagitis presence: without esophagitis Qualified Code(s): K21.9 - Gastro -esophageal reflux disease without esophagitis (5) Hyperlipidemia Onset Date: 12/05/17 Current Visit: No Status: Acute (6) COPD exacerbation Onset Date: 12/05/17 Current Visit: No Status: Acute (7) Hypercapnia Onset Date: 12/05/17 Current Visit: No Status: Acute (8) HTN (hypertension) Onset Date: 12/05/17 Current Visit: No Status: Chronic Qualifiers: Hypertension type: essential hypertension Qualified Code(s): I10 - Essential (primary) hypertension - Plan This is a 77-year-old female with: Altered mentation, resolved. Back to baseline Hypoxic, hypercapnic respiratory distress. Back to baseline Sleep apnea COPD Hypertension Congestive heart failure Patient back to baseline IV steroids, breathing treatments. Oxygen as needed. The patient may need oxygen usage throughout the day at home as well. She does have oxygen at home called previously has not been using it during the day. CPAP at night for sleep apnea. Continue Diureses with IV Lasix. DVT prophylaxis: Lovenox GI prophylaxis: None Diet: Heart healthy Disposition: Likely discharge in the next 24-48 hr pending discharge planning. Patient is not a safe discharge home if she is alone by herself at home. Social work on board
[2018-03-14] MEDS: ATORVASTATIN 10 MG TAB PO SCH (21:40)
[2018-03-15] MEDS ORDERED: ZIPRASIDONE MESYLA 20 MG/VIAL IM ONE (00:29)
[2018-03-15] MEDS ORDERED: WATER FOR INJ,STERILE 10 ML IM PRN (00:29)
[2018-03-15] MEDS: METHYLPREDNISOLONE 40 MG INJ IV SCH ×3 (00:58→17:39)
[2018-03-15] MEDS: ALBUTEROL 2.5 MG/3 ML NEB SOL NEB SCH ×6 (03:35→23:45)
[2018-03-15 07:36] LABS: Absolute Lymphocytes (CBC) 0.9 K/uL (0.7-4.9); Absolute Monocytes 0.6 K/uL (0.1-1.3); Absolute Neutrophil 14.4 K/uL (1.8-8.0); Basophils % 0.2 % (0-1.3); Hematocrit 35.4 % (36.0-45.0); Lymphocytes % 5.9 % (15.3-44.8); MPV 8.2 fL (7.6-11.3); RBC Red Blood Cell Count 4.11 M/uL (3.86-4.86)
[2018-03-15 07:44] LABS: Albumin 2.8 g/dL (3.4-5.0); Bilirubin Total 0.3 mg/dL (0.2-1.0); Potassium 3.7 mmol/L (3.5-5.1); Protein, Total 6.6 g/dL (6.4-8.2)
[2018-03-15] MEDS ORDERED: POTASSIUM 25 MEQ EFFERV TAB PO ONE (09:00)
[2018-03-15] MEDS: BRIMONIDINE 0.2% OPTH SCH ×2 (09:36→20:13)
[2018-03-15] MEDS: FUROSEMIDE 20 MG/ 2ML VIAL IV SCH ×2 (09:36→17:00)
[2018-03-15] MEDS: EYE OPTH SCH ×2 (09:36→20:13)
[2018-03-15] MEDS: TIMOLOL 0.5% OPTH SCH ×2 (09:36→20:13)
[2018-03-15] MEDS: ASPIRIN EC 81 MG TAB PO SCH (13:04)
[2018-03-15] MEDS: METOPROLOL TAR 25 MG TAB PO SCH ×2 (13:05→20:12)
[2018-03-15] MEDS: AMLODIPINE 5 MG TAB PO SCH (13:06)
--- NOTE | 2018-03-15 16:28 | RAD REPORT ---
EXAM DESCRIPTION: CT - Head Brain Wo Cont - 03/15/2018 4:15 pm CLINICAL HISTORY: /confusion COMPARISON: None TECHNIQUE: Computed axial tomography of the head was obtained. IV contrast was not requested. All CT scans are performed using dose optimization technique as appropriate and may include automated exposure control or mA/KV adjustment according to patient size. FINDINGS: An intracranial bleed is not seen . The ventricles are normal in caliber. Tiny parafalcine lipoma No extra-axial fluid collection is noted. Mild low-density areas within periventricular, deep and sub cortical white matter likely represent ischemic changes secondary to small vessel disease. Fluid within the sinuses/ mastoids is not seen. IMPRESSION: No acute intracranial abnormality is seen. If patient's symptoms persist MRI of the bra in would be recommended.
--- NOTE | 2018-03-15 16:56 | RAD REPORT ---
EXAM DESCRIPTION: RAD - Pelvis - 03/15/2018 4:42 pm CLINICAL HISTORY: Pelvic pain FINDINGS: No fracture or dislocation is seen. The bones are osteoporotic. If the patient has clinical symptoms to suggest an occult fracture MRI wo uld be recommended
--- NOTE | 2018-03-15 16:57 | RAD REPORT ---
EXAM DESCRIPTION: RAD - Hip Right 2 View - 03/15/2018 4:42 pm CLINICAL HISTORY: Right hip pain FINDINGS: No fracture or dislocation is seen. The bones are osteoporotic. If the patient has clinical symptoms to suggest an occult fracture MRI wo uld be recommended
--- NOTE | 2018-03-15 16:58 | RAD REPORT ---
EXAM DESCRIPTION: RAD - Shoulder Right 2 View - 03/15/2018 4:42 pm CLINICAL HISTORY: Right shoulder pain FINDINGS: No fracture or dislocation is seen. Marked osteoarthritis involves the glenohumeral joint consisting of large osteophytes. The bones are osteoporotic
--- NOTE | 2018-03-15 16:59 | RAD REPORT ---
EXAM DESCRIPTION: [place] Head (2 Views)03/15/2018 4:42 pm CLINICAL HISTORY: Chest pain COMPARISON: March 12 FINDINGS: Small bilateral pleural effusions are present. Mild bibasilar atelectasis The upper lobes appear clear. The heart is mildly enlarged. Postsurgical changes involve the chest. IMPRESSION: Small bilateral pleural effusions
--- NOTE | 2018-03-15 17:40 | P.PN ---
Subjective Date of Service: 03/15/18 Primary Care Provider: Dr. Quevedo Chief Complaint: Decreased oxygenation Patient seen and examined at bedside. Daughter and granddaughter at bedside. Chart reviewed and case discussed with nursing staff. Breathing is improved. Overnight, patient was agitated, given [place]. She did experience a fall from bed. At that time, denied any pain. At the time of my exam this morning, patient complained of pain along the left side. Review of Systems 10-point ROS is otherwise unremarkable Physical Examination - Vital Signs Temperature: 97.8 F Blood Pressure: 140/63 Pulse: 66 Respirations: 18 Pulse Ox (%): 94 - Physical Exam General: Alert, In no apparent distress, Oriented x2, Oriented x1 HEENT: Atraumatic, PERRLA, EOMI Neck: Supple, JVD not distended Respiratory: Clear to auscultation bilaterally, Normal air movement Cardiovascular: Regular rate/rhythm, Normal S1 S2 Gastrointestinal: Normal bowel sounds, No tenderness Musculoskeletal: No tenderness Integumentary: Rash(es) (Bruises noted on the left chest wall) Neurological: Normal speech, Normal tone, Normal affect Lymphatics: No axilla or inguinal lymphadenopathy Assessment And Plan - Current Problems (Diagnosis) (1) Altered mental status Current Visit: No Status: Acute Qualifiers: Altered mental status type: unspecified Qualified Code(s): R41.82 - Altered mental status, unspecified (2) Dementia Current Visit: No Status: Chronic Qualifiers: Dementia type: unspecified type Dementia behavioral disturbance: without behavioral disturbance Qualified Code(s): F03.90 - Unspecified dementia without behavioral disturbance (3) CAD (coronary artery disease) Onset Date: 12/05/17 Current Visit: No Status: Chronic Qualifiers: Coronary Disease-Associated Artery/Lesion type: [place] artery [place] vs. transplanted heart: [place] heart Associated angina: without angina Qualified Code(s): I25.10 - Atherosclerotic heart disease of [place] coronary artery without angina pectoris (4) GERD (gastroesophageal reflux disease) Onset Date: 12/05/17 Current Visit: No Status: Chronic Qualifiers: Esophagitis presence: without esophagitis Qualified Code(s): K21.9 - Gastro -esophageal reflux disease without esophagitis (5) Hyperlipidemia Onset Date: 12/05/17 Current Visit: No Status: Acute (6) COPD exacerbation Onset Date: 12/05/17 Current Visit: No Status: Acute (7) Hypercapnia Onset Date: 12/05/17 Current Visit: No Status: Acute (8) HTN (hypertension) Onset Date: 12/05/17 Current Visit: No Status: Chronic Qualifiers: Hypertension type: essential hypertension Qualified Code(s): I10 - Essential (primary) hypertension (9) Fall Current Visit: Yes Status: Acute Qualifiers: Encounter type: initial encounter Qualified Code(s): W19.XXXA - Unspecified fall, initial encounter - Plan This is a 77-year-old female with: Altered mentation, resolved. Back to baseline Hypoxic, hypercapnic respiratory distress. Back to baseline Sleep apnea COPD Hypertension Congestive heart failure Fall in the hospital Patient seems to have weaning and waxing mentation, intermittently confused. This may be patient new baseline. IV steroids, breathing treatments. Oxygen as needed. The patient may need oxygen usage throughout the day at home as well. She does have oxygen at home called previously has not been using it during the day. CPAP at night for sleep apnea. Continue Diureses with IV Lasix. Patient with a fall overnight in the hospital - imaging negative for any acute fractures/abnormalities. CT head negative for any acute abnormalities will try lidocaine patch to the affected area DVT prophylaxis: Lovenox GI prophylaxis: None Diet: Heart healthy Disposition: Patient is not a safe discharge home if she is alone by herself at home. Social work on board
[2018-03-15] MEDS: ATORVASTATIN 10 MG TAB PO SCH (20:12)
[2018-03-16] MEDS: METHYLPREDNISOLONE 40 MG INJ IV SCH ×3 (00:52→17:05)
[2018-03-16] MEDS: ALBUTEROL 2.5 MG/3 ML NEB SOL NEB SCH ×6 (03:50→23:30)
[2018-03-16 05:45] LABS: Absolute Lymphocytes (CBC) 0.9 K/uL (0.7-4.9); Absolute Monocytes 0.6 K/uL (0.1-1.3); Absolute Neutrophil 14.3 K/uL (1.8-8.0); Basophils % 0.1 % (0-1.3); Hematocrit 31.1 % (36.0-45.0); Lymphocytes % 5.8 % (15.3-44.8); MPV 8.6 fL (7.6-11.3); Monocytes % 3.9 % (3.3-12.3); RBC Red Blood Cell Count 3.64 M/uL (3.86-4.86)
[2018-03-16 05:54] LABS: Albumin 2.7 g/dL (3.4-5.0); Bilirubin Total 0.3 mg/dL (0.2-1.0); Potassium 3.9 mmol/L (3.5-5.1); Protein, Total 6.2 g/dL (6.4-8.2)
[2018-03-16] MEDS ORDERED: POTASSIUM CL SA 10 MEQ TAB PO ONE (06:05)
[2018-03-16] MEDS: FUROSEMIDE 20 MG/ 2ML VIAL IV SCH ×2 (08:02→17:05)
[2018-03-16] MEDS: EYE OPTH SCH ×2 (08:02→20:41)
[2018-03-16] MEDS: BRIMONIDINE 0.2% OPTH SCH ×2 (08:02→20:41)
[2018-03-16] MEDS: TIMOLOL 0.5% OPTH SCH ×2 (08:02→20:41)
[2018-03-16] MEDS: METOPROLOL TAR 25 MG TAB PO SCH ×2 (08:03→20:41)
[2018-03-16] MEDS: ASPIRIN EC 81 MG TAB PO SCH (08:03)
[2018-03-16] MEDS: AMLODIPINE 5 MG TAB PO SCH (08:43)
[2018-03-16] MEDS ORDERED: ACETAMINOPHEN 500 MG TAB PO PRN (09:09)
[2018-03-16] MEDS: LIDOCAINE 5% PATCH TOP SCH (09:42)
[2018-03-16] MEDS: DOCUSATE NA 100 MG CAP PO SCH ×2 (09:42→20:41)
--- NOTE | 2018-03-16 12:11 | P.PN ---
Subjective Date of Service: 03/16/18 Primary Care Provider: Dr. Quevedo Chief Complaint: Decreased oxygenation Patient seen and examined at bedside. Daughter and granddaughter at bedside. Chart reviewed and case discussed with nursing staff. Breathing is back to baseline. Overnight, patient only slightly agitated. This morning, patient more alert and awake, doing well Review of Systems 10-point ROS is otherwise unremarkable Physical Examination - Vital Signs Temperature: 97.8 F Blood Pressure: 124/54 Pulse: 67 Respirations: 16 Pulse Ox (%): 96 - Physical Exam General: Alert, In no apparent distress, Oriented x2, Oriented x1 HEENT: Atraumatic, PERRLA, EOMI Neck: Supple, JVD not distended Respiratory: Clear to auscultation bilaterally, Normal air movement Cardiovascular: Regular rate/rhythm, Normal S1 S2 Gastrointestinal: Normal bowel sounds, No tenderness Musculoskeletal: No tenderness Integumentary: No rashes Neurological: Normal speech, Normal tone, Normal affect Assessment And Plan - Current Problems (Diagnosis) (1) Altered mental status Current Visit: No Status: Acute Qualifiers: Altered mental status type: unspecified Qualified Code(s): R41.82 - Altered mental status, unspecified (2) Dementia Current Visit: No Status: Chronic Qualifiers: Dementia type: unspecified type Dementia behavioral disturbance: without behavioral disturbance Qualified Code(s): F03.90 - Unspecified dementia without behavioral disturbance (3) CAD (coronary artery disease) Onset Date: 12/05/17 Current Visit: No Status: Chronic Qualifiers: Coronary Disease-Associated Artery/Lesion type: [place] artery [place] vs. transplanted heart: [place] heart Associated angina: without angina Qualified Code(s): I25.10 - Atherosclerotic heart disease of [place] coronary artery without angina pectoris (4) GERD (gastroesophageal reflux disease) Onset Date: 12/05/17 Current Visit: No Status: Chronic Qualifiers: Esophagitis presence: without esophagitis Qualified Code(s): K21.9 - Gastro -esophageal reflux disease without esophagitis (5) Hyperlipidemia Onset Date: 12/05/17 Current Visit: No Status: Acute (6) COPD exacerbation Onset Date: 12/05/17 Current Visit: No Status: Acute (7) Hypercapnia Onset Date: 12/05/17 Current Visit: No Status: Acute (8) HTN (hypertension) Onset Date: 12/05/17 Current Visit: No Status: Chronic Qualifiers: Hypertension type: essential hypertension Qualified Code(s): I10 - Essential (primary) hypertension (9) Fall Current Visit: Yes Status: Acute Qualifiers: Encounter type: initial encounter Qualified Code(s): W19.XXXA - Unspecified fall, initial encounter - Plan This is a 77-year-old female with: Altered mentation, resolved. Back to baseline Hypoxic, hypercapnic respiratory distress. Back to baseline Sleep apnea COPD Hypertension Congestive heart failure Fall in the hospital Patient seems to have weaning and waxing mentation, intermittently confused. This may be patient's new baseline. Discussed this in detail with family IV steroids, breathing treatments. Oxygen as needed. The patient may need oxygen usage throughout the day at home as well. She does have oxygen at home but previously has not been using it during the day. CPAP at night for sleep apnea. Continued Diureses with IV Lasix. Patient with a fall overnight in the hospital (03/15/2018) - imaging negative for any acute fractures/abnormalities. CT head negative for any acute abnormalities will try lidocaine patch to the affected area DVT prophylaxis: Lovenox GI prophylaxis: None Diet: Heart healthy Disposition: Patient is not a safe discharge home if she is alone by herself at home. Social work on board pending safe discharge plan
[2018-03-16] MEDS: ATORVASTATIN 10 MG TAB PO SCH (20:42)
[2018-03-17] MEDS: METHYLPREDNISOLONE 40 MG INJ IV SCH ×3 (00:11→18:04)
[2018-03-17] MEDS: ALBUTEROL 2.5 MG/3 ML NEB SOL NEB SCH ×5 (03:35→19:35)
[2018-03-17 06:39] LABS: Potassium 4.8 mmol/L (3.5-5.1)
[2018-03-17] MEDS: DOCUSATE NA 100 MG CAP PO SCH ×2 (09:04→20:22)
[2018-03-17] MEDS: FUROSEMIDE 20 MG/ 2ML VIAL IV SCH ×2 (09:05→18:05)
[2018-03-17] MEDS: ASPIRIN EC 81 MG TAB PO SCH (09:06)
[2018-03-17] MEDS: AMLODIPINE 5 MG TAB PO SCH (09:06)
[2018-03-17] MEDS: LIDOCAINE 5% PATCH TOP SCH (09:08)
[2018-03-17] MEDS: EYE OPTH SCH ×2 (10:18→20:22)
[2018-03-17] MEDS: BRIMONIDINE 0.2% OPTH SCH ×2 (10:18→20:22)
[2018-03-17] MEDS: TIMOLOL 0.5% OPTH SCH ×2 (10:19→20:22)
[2018-03-17] MEDS: METOPROLOL TAR 25 MG TAB PO SCH ×2 (10:21→20:22)
--- NOTE | 2018-03-17 16:03 | P.PN ---
Subjective Date of Service: 03/17/18 Primary Care Provider: Dr. Quevedo Chief Complaint: Decreased oxygenation Subjective: No new changes Patient seen and examined at bedside. No family at bedside. Chart reviewed and case discussed with nursing staff. Required biPAP last night. But at the time of my exam, patient on NC at 3 L, doing well. Review of Systems 10-point ROS is otherwise unremarkable Physical Examination - Vital Signs Temperature: 97.6 F Blood Pressure: 111/56 Pulse: 60 Respirations: 18 Pulse Ox (%): 90 - Physical Exam General: Alert, In no apparent distress, Oriented x1 HEENT: Atraumatic, PERRLA, EOMI Neck: Supple, JVD not distended Respiratory: Clear to auscultation bilaterally, Normal air movement Cardiovascular: Regular rate/rhythm, Normal S1 S2 Gastrointestinal: Normal bowel sounds, No tenderness Musculoskeletal: No tenderness Integumentary: No rashes Neurological: Normal speech, Normal tone, Normal affect Lymphatics: No axilla or inguinal lymphadenopathy - Studies Microbiology Data (last 24 hrs): 03/12/18 11:00 Blood - Blood Aerobic Blood Culture - Final No growth in 5 days. 03/12/18 11:00 Blood - Blood Anaerobic Blood Culture - Final No growth in 5 days. 03/12/18 10:38 Blood - Blood Aerobic Blood Culture - Final No growth in 5 days. 03/12/18 10:38 Blood - Blood Anaerobic Blood Culture - Final No growth in 5 days. Assessment And Plan - Current Problems (Diagnosis) (1) Altered mental status Current Visit: No Status: Acute Qualifiers: Altered mental status type: unspecified Qualified Code(s): R41.82 - Altered mental status, unspecified (2) Dementia Current Visit: No Status: Chronic Qualifiers: Dementia type: unspecified type Dementia behavioral disturbance: without behavioral disturbance Qualified Code(s): F03.90 - Unspecified dementia without behavioral disturbance (3) CAD (coronary artery disease) Onset Date: 12/05/17 Current Visit: No Status: Chronic Qualifiers: Coronary Disease-Associated Artery/Lesion type: [place] artery [place] vs. transplanted heart: [place] heart Associated angina: without angina Qualified Code(s): I25.10 - Atherosclerotic heart disease of [place] coronary artery without angina pectoris (4) GERD (gastroesophageal reflux disease) Onset Date: 12/05/17 Current Visit: No Status: Chronic Qualifiers: Esophagitis presence: without esophagitis Qualified Code(s): K21.9 - Gastro -esophageal reflux disease without esophagitis (5) Hyperlipidemia Onset Date: 12/05/17 Current Visit: No Status: Acute (6) COPD exacerbation Onset Date: 12/05/17 Current Visit: No Status: Acute (7) Hypercapnia Onset Date: 12/05/17 Current Visit: No Status: Acute (8) HTN (hypertension) Onset Date: 12/05/17 Current Visit: No Status: Chronic Qualifiers: Hypertension type: essential hypertension Qualified Code(s): I10 - Essential (primary) hypertension (9) Fall Current Visit: Yes Status: Acute Qualifiers: Encounter type: initial encounter Qualified Code(s): W19.XXXA - Unspecified fall, initial encounter - Plan This is a 77-year-old female with: Altered mentation, resolved. Back to baseline Hypoxic, hypercapnic respiratory distress. Back to baseline Patient seems to have weaning and waxing mentation, intermittently confused. This may be patient's new baseline. Discussed this in detail with family Sleep apnea CPAP at night for sleep apnea. COPD IV steroids, breathing treatments. Oxygen as needed. The patient may need oxygen usage throughout the day at home as well. She does have oxygen at home but previously has not been using it during the day. Hypertension Continue home medications Congestive heart failure Continued Diuresis with IV Lasix. Fall in the hospital Patient with a fall overnight in the hospital (03/15/2018) - imaging negative for any acute fractures/abnormalities. CT head negative for any acute abnormalities Lidocaine patch to right chest wall, seems to be helping with pain control DVT prophylaxis: Lovenox GI prophylaxis: None Diet: Heart healthy Disposition: Patient is not a safe discharge home if she is alone by herself at home. Social work on board pending safe discharge plan. Continue physical therapy.
[2018-03-17] MEDS: ATORVASTATIN 10 MG TAB PO SCH (20:21)
[2018-03-18] MEDS: METHYLPREDNISOLONE 40 MG INJ IV SCH ×2 (00:09→08:27)
[2018-03-18] MEDS: ALBUTEROL 2.5 MG/3 ML NEB SOL NEB SCH ×6 (00:15→20:00)
[2018-03-18] MEDS: AMLODIPINE 5 MG TAB PO SCH (08:27)
[2018-03-18] MEDS: LIDOCAINE 5% PATCH TOP SCH (08:27)
[2018-03-18] MEDS: DOCUSATE NA 100 MG CAP PO SCH ×2 (08:27→21:44)
[2018-03-18] MEDS: METOPROLOL TAR 25 MG TAB PO SCH ×2 (08:28→21:44)
[2018-03-18] MEDS: FUROSEMIDE 20 MG/ 2ML VIAL IV SCH ×2 (08:28→17:13)
[2018-03-18] MEDS: ASPIRIN EC 81 MG TAB PO SCH (08:28)
[2018-03-18] MEDS: TIMOLOL 0.5% OPTH SCH ×2 (08:29→21:48)
[2018-03-18] MEDS: BRIMONIDINE 0.2% OPTH SCH ×2 (08:29→21:48)
[2018-03-18] MEDS: EYE OPTH SCH ×2 (08:29→21:48)
--- NOTE | 2018-03-18 15:42 | PN ---
Date of Progress Note: 03/18/2018 Subjective: The patient is seen and examined, chart reviewed and case discussed with RN. The patient did not require BiPAP overnight. Overall states she is doing better. The patient is awaiting SNF placement. Medications: List reviewed. Code Status: Do not resuscitate. Physical Examination: Vital Signs: Temperature 97.1, heart rate 58, blood pressure 143/63, respirations 18, and O2 of 96% on 2.5 L via nasal cannula. General: Awake, alert, and oriented x3, elderly female, not in any acute distress, obese. CV: S1 and S2. Regular rate and rhythm. Respiratory: Diminished breath sounds. No wheezing or crackles. No use of accessory muscles. Gastrointestinal: Abdomen is soft, nontender, and nondistended. Positive bowel sounds. Extremities: No clubbing or cyanosis. The patient does have some pedal edema. Neurologic: Cranial nerves 2 through 12 intact grossly. No focal neurological deficit. Speech is normal. Laboratory Data: Pending. Blood cultures, no growth to date. Assessment And Plan: A 77-year-old female with, 1. Acute metabolic encephalopathy, improved. 2. Dementia, Alzheimer's type without behavioral disturbance, stable. 3. Coronary artery disease, [place] artery and [place] heart without angina. 4. Gastroesophageal reflux disease without esophagitis. 5. Mixed hyperlipidemia. 6. Acute chronic obstructive pulmonary disease exacerbation, improved with IV steroids and breathing treatments. The patient does require supplemental oxygen. 7. Acute respiratory failure w Hypercapnia, improved with BiPAP. The patient is still requiring BiPAP on and off. Has been off BiPAP since last night. 8. Essential hypertension, stable. 9. Status post fall, initial encounter. Head CT is negative. 10. Obstructive sleep apnea. Continue CPAP at night. 11. Chronic congestive heart failure. Ejection fraction from November 2017 is 69%, diastolic dysfunction. 12. Hypertensive heart disease. 13. Gastrointestinal and deep venous thrombosis prophylaxis with PPI and Lovenox. PLAN: The patient has been referred to alf facility. She has had multiple falls. Will benefit from rehab and we will continue physical therapy. We will continue diuresis. Wean off steroids. Discharge to alf facility once accepted. Continue daily weights. Monitor I's and O's strictly. SA/MODL Voice ID: [id number] Report ID: [id number] MTDD
[2018-03-18] MEDS ORDERED: BISACODYL 10 MG RECTAL SUPP PR ONE (15:43)
[2018-03-18] MEDS ORDERED: METHYLPREDNISOLONE 40 MG INJ IV SCH (21:00)
[2018-03-18] MEDS: ATORVASTATIN 10 MG TAB PO SCH (21:44)
--- NOTE | 2018-03-19 00:54 | DS ---
Date of Discharge: 03/18/2018 Admitting Diagnoses: 1.Altered mental status. 2.Hypoxic-hypercapnic respiratory failure. 3.Sleep apnea. 4.Chronic obstructive pulmonary disease. 5.Essential hypertension. 6.Congestive heart failure, diastolic. Discharge Diagnoses: 1.Toxic encephalopathy, improved. 2.Dementia, without behavioral disturbance. 3.Coronary artery disease, lummi artery and lummi heart, without angina. 4.Gastroesophageal reflux disease without esophagitis. 5.Mixed hyperlipidemia. 6.Chronic obstructive pulmonary disease exacerbation, acute. 7.Acute respiratory failure with hypercapnia and hypoxia. 8.Essential hypertension. 9.Status post fall. 10.Obesity, body mass index is 31. 11.Obstructive sleep apnea, on CPAP. 12.Diastolic congestive heart failure, acute on chronic. Hospital Course: The patient is a 77-year-old female with history of COPD, hypertension, CHF, comes in with decreased oxygenation levels at home leading to some confusion. The patient uses oxygen usua lly at night, not during the day. The patient's workup revealed COPD and volume overload. The patie nt was started on IV diuretics and breathing treatments and steroids. The patient did develop some s teroid-induced leukocytosis. Overall, she did well over the course of the hospital stay. Her blood cultures were negative. Flu screen was also negative. The patient does have dementia and did have a n episode where she slid out of bed and had a fall; however, did not have any acute fractures or blee ding on subsequent imaging studies including head CT scan, shoulder x-ray, pelvis x-ray, and chest x- ray. The patient was not safe for discharge home due to risk of falls. PT was ordered. The patient started working with Physical Therapy, recommended [facility]. The patient was then referred to SNF and was discharged once accepted. The patient overall improved. She will r equire oxygen throughout the day as well as at night secondary to her COPD and CHF. The patient does have an echocardiogram from November 2017, showed EF of 69% and left ventricular hypertrophy. The sherin donnelly was diuresed well. She will be discharged home on p.o. Lasix as well as steroid taper. The sherin donnelly was then discharged to [facility] facility in stable condition. Activity: Fall precautions. Diet: Low-sodium, fluid-restricted diet. Followup: Follow up with PCP in 2 to 3 days. Return to ER for worsening condition. Medications: As per medication reconciliation list. For physical examination findings, please see progress note dictated on the day of discharge. Total time spent discharging the patient was 33 minutes. JULIA Voice ID: [id number] Report ID: [id number]
[2018-03-19 05:12] VITALS: O2SAT 95
[2018-03-19 06:24] LABS: Absolute Lymphocytes (CBC) 1.8 K/uL (0.7-4.9); Absolute Monocytes 1.8 K/uL (0.1-1.3); Absolute Neutrophil 19.3 K/uL (1.8-8.0); Basophils % 0.1 % (0-1.3); Eosinophils % 0.1 % (0-4.4); Hematocrit 35.3 % (36.0-45.0); Lymphocytes % 7.9 % (15.3-44.8); MPV 8.8 fL (7.6-11.3); Monocytes % 7.9 % (3.3-12.3); RBC Red Blood Cell Count 4.06 M/uL (3.86-4.86)
[2018-03-19 06:44] LABS: Potassium 4.1 mmol/L (3.5-5.1)
[2018-03-19] MEDS: ALBUTEROL 2.5 MG/3 ML NEB SOL NEB SCH ×2 (08:00)
[2018-03-19] MEDS: FUROSEMIDE 20 MG/ 2ML VIAL IV SCH (09:00)
[2018-03-19] MEDS: BRIMONIDINE 0.2% OPTH SCH (09:00)
[2018-03-19] MEDS: TIMOLOL 0.5% OPTH SCH (09:00)
[2018-03-19] MEDS: EYE OPTH SCH (09:00)
[2018-03-19] MEDS ORDERED: predniSONE 20 MG TAB PO SCH (09:00)
[2018-03-19 09:14] VITALS: BP 139/60; TEMP 98
[2018-03-19] MEDS: ASPIRIN EC 81 MG TAB PO SCH (09:57)
[2018-03-19] MEDS: METOPROLOL TAR 25 MG TAB PO SCH (09:57)
[2018-03-19] MEDS: AMLODIPINE 5 MG TAB PO SCH (09:57)
[2018-03-19] MEDS: DOCUSATE NA 100 MG CAP PO SCH (09:57)
[2018-03-19] MEDS: LIDOCAINE 5% PATCH TOP SCH (09:58)
--- NOTE | 2018-03-19 13:07 | PN ---
Date of Progress Note: 03/19/2018 Subjective: The patient is seen and examined. Chart reviewed, and case discussed with RN. The cristhian ent was unable to go to correction yesterday. We will attempt to transfer again today. Medications: List reviewed. Physical Examination: Vital Signs: Temperature 98, heart rate 72, blood pressure 139/60, respirations 18, O2 of 96% on 2 L via nasal cannula. General: Awake, alert, oriented x3. No acute distress. An elderly female, obese. CV: S1, S2. Regular rate and rhythm. No murmurs. Respiratory: Moving air well bilaterally. No wheezing. Gastrointestinal: Abdomen is soft, nontender, nondistended. Positive bowel sounds. Extremities: No clubbing, cyanosis, or edema. Neurologic: Nonfocal. Laboratory Data: Sodium 142, potassium 4.1, chloride 100, CO2 of 38, BUN 59, creatinine 1.14, glucos e 105, calcium 7.7. Procalcitonin 0.08. WBC 23, H and H 11.4 and 35.3, platelets 218, neutrophils 8 4%. Assessment: A 77-year-old female with: 1.Toxic encephalopathy, resolved. 2.Dementia without behavioral disturbance, Alzheimer's type, early onset. 3.Coronary artery disease, [place] artery and [place] heart, without angina. 4.Gastroesophageal reflux disease without esophagitis. 5.Mixed hyperlipidemia. 6.Chronic obstructive pulmonary disease with acute exacerbation, improving. 7.Acute respiratory failure with hypercapnia and hypoxia, resolving, now off BiPAP. 8.Essential hypertension. Stable. 9.Status post fall. 10.Obesity, BMI 31. 11.Obstructive sleep apnea. Continue CPAP. 12.Diastolic congestive heart failure, acute on chronic. 13.Steroid-induced leukocytosis. No signs of sepsis. Procalcitonin is negative. The patient has b een on steroids. Has been switched over to p.o. Plan: The patient was not accepted by nursing facility yesterday. We will discharge today. /JUANJOSE Voice ID: [id number] Report ID: [id number]
== END 2018-03-19 11:47 | DRG 91 ==
LOC: ER 09:47 → ERHOLD 13:34 → 2ND 15:48 → OBSVTOIN 03-13 12:49
PROVIDERS: ADMIT Family Medicine; ATTEND Family Medicine
PROC: 5A09357 Assistance with Respiratory Ventilation, Less than 24 Consecutive Hours, Continuous Positive Airway Pressure (ICD-10-PCS; principal; 2018-03-13)
PROC: 30233N1 Transfusion of Nonautologous Red Blood Cells into Peripheral Vein, Percutaneous Approach (ICD-10-PCS; 2018-03-14)
DX: G92 Toxic encephalopathy (principal); J96.02 Acute respiratory failure with hypercapnia; J96.01 Acute respiratory failure with hypoxia; I50.33 Acute on chronic diastolic (congestive) heart failure; J44.1 Chronic obstructive pulmonary disease with (acute) exacerbation; I25.10 Atherosclerotic heart disease of native coronary artery without angina pectoris; K21.9 Gastro-esophageal reflux disease without esophagitis; G89.11 Acute pain due to trauma; W06.XXXA Fall from bed, initial encounter; Y93.89 Activity, other specified; Y92.230 Patient room in hospital as the place of occurrence of the external cause; F02.80 Dementia in other diseases classified elsewhere, unspecified severity, without behavioral disturbance, psychotic disturbance, mood disturbance, and anxiety; E78.2 Mixed hyperlipidemia; G47.33 Obstructive sleep apnea (adult) (pediatric); E66.9 Obesity, unspecified; Z68.31 Body mass index [BMI] 31.0-31.9, adult; I11.0 Hypertensive heart disease with heart failure; E87.70 Fluid overload, unspecified; G30.0 Alzheimer's disease with early onset; D72.828 Other elevated white blood cell count
CPT/HCPCS: 36415; 70450; 71045; 71046; 72170; 80048; 80053; 80076; 81003; 81015; 82805; 83605; 83735; 83880; 84100; 84145; 84484; 85025; 85610; 87040; 87804; 93005; 94640; 94660; 94760; 96374; 96375; 97110; 97116; 97163; 97530; 99285; G0378; J1940; J2405; J2920; J2930; J3486

== ENCOUNTER 2018-09-08 19:18 | Emergency (ER) | payer OTHER ==
--- OUTSIDE RECORDS SUMMARY | 2018-09-08 19:22 | XMS REPORT ---
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 Problem 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 Problem Glaucoma H40.9 Active Problem Hospital discharge follow-up Z09 Active Problem Renal insufficiency N28.9 Active Problem Osteopenia M85.80 Active Problem Obesity E66.9 Active Problem HTN (hypertension) I10 Active Problem At risk for falling Z91.81 Active Problem Leucocytosis D72.829 Active Problem Neutrophilic leukocytosis D72.9 Active Problem Degenerative joint disease M19.90 Active Problem Diverticulosis of colon K57.30 Active Problem Dependence on supplemental oxygen Z99.81 Active Problem Mixed hyperlipidemia E78.2 Active Problem Chronic atrial fibrillation I48.2 Active Problem Urinary incontinence R32 Active Medications No Known Medications Results No Known Results Summary Purpose eClinicalWorks Submission
--- OUTSIDE RECORDS SUMMARY | 2018-09-08 19:22 | XMS REPORT ---
:1940 Author Organization eClinical[employer] Care Team Providers Name Role Phone Quevedo, Na Provider Role Unavailable Allergies, Adverse Reactions, Alerts Substance Reaction Event Type Citalopram Hydrobromide thrombocytopenia Drug Allergy Problems Problem Type Condition Code Onset Dates Condition Status Assessment Dependence on supplemental oxygen Z99.81 Active Assessment Neutrophilic leukocytosis D72.9 Active Assessment Pulmonary fibrosis J84.10 Active Assessment Chronic atrial fibrillation I48.2 Active Assessment CAD (coronary artery disease), I25.10 Active [place] coronary artery Problem Dependence on supplemental oxygen Z99.81 Active Assessment CKD (chronic kidney disease) stage N18.3 Active 3, GFR 30-59 ml/min Problem Chronic atrial fibrillation I48.2 Active Assessment Mixed hyperlipidemia E78.2 Active Problem Degenerative joint disease M19.90 Active Problem Mixed hyperlipidemia E78.2 Active Problem Diverticulosis of colon K57.30 Active Problem 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 Problem Hospital discharge follow-up Z09 Active Assessment 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 Problem CKD (chronic kidney disease) stage N18.3 Active 3, GFR 30-59 ml/min Assessment HTN (hypertension) I10 Active Problem CAD (coronary artery disease), I25.10 Active [place] coronary artery Problem Urinary incontinence R32 Active Problem Pulmonary fibrosis J84.10 Active Problem 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 Problem HTN (hypertension) I10 Active Problem Obesity E66.9 Active Problem Osteopenia M85.80 Active Problem Renal insufficiency N28.9 Active Problem At risk for falling Z91.81 Active Problem Leucocytosis D72.829 Active Problem Glaucoma H40.9 Active Problem Neutrophilic leukocytosis D72.9 Active Medications Medication Code Code Instructions Start End Status Dosage System Date Date Metoprolol [facility] 43083219994 25 MG Orally Active 1 tablet Tartrate Twice a day with food Caltrate 600+D ND 24069993546 600-800 MG-UNIT Active 1 tablet Orally Once a with a meal day Norvasc [facility] 13053570135 5 MG Orally Once Active 1 tablet a day Xalatan [facility] 60490219236 0.005 % Active 1 drop into Ophthalmic Once affected a day eye in the evening Lovastatin [facility] 71672422292 10 MG Orally Active 1 tablet Once a day with a meal Results No Known Results Summary Purpose eClinicalWorks Submission
[2018-09-08 20:19] LABS: Absolute Lymphocytes (CBC) 2.3 K/uL (0.7-4.9); Basophils % 0.5 % (0-1.3); Hematocrit 38.3 % (36.0-45.0); Lymphocytes % 16.3 % (15.3-44.8); Monocytes % 5.6 % (3.3-12.3); RBC Red Blood Cell Count 4.49 M/uL (3.86-4.86)
[2018-09-08 20:21] LABS: Urine Blood TRACE (NEG); Urine Glucose NEGATIVE (NEG); Urine Protein TRACE (NEG); Urine Specific Gravity 1.015 (1.005-1.030); Urine pH 5.5 (5.0-7.0)
[2018-09-08 20:28] LABS: Urine Bacteria >50 /HPF (<20); Urine Culture Reflex Order NOT NEEDED; Urine RBC NONE SEEN /HPF (NONE SEEN)
[2018-09-08 20:33] LABS: Albumin 2.9 g/dL (3.4-5.0); Bilirubin Total 0.2 mg/dL (0.2-1.0); Potassium 4.2 mmol/L (3.5-5.1); Protein, Total 7.3 g/dL (6.4-8.2)
--- NOTE | 2018-09-08 20:41 | RAD REPORT ---
EXAM DESCRIPTION: CT - Head Brain Wo Cont - 09/08/2018 8:29 pm CLINICAL HISTORY: Confusion, transient alteration of awareness COMPARISON: February 2018 TECHNIQUE: Axial 5 mm thick images of the head were obtained without IV contrast. All CT scans are performed using dose optimization technique as appropriate and may include automated exposure control or mA/KV adjustment according to patient size. FINDINGS: No intracranial hemorrhage, mass, edema or shift of mid-line structures. No acute infarcti on changes seen. No abnormal extra-axial fluid collections. Atrophy and chronic ischemic changes are present matching the prior study. Ventricles are in proportion to volume loss. Patient has dense mal rial tree calcifications Mastoid air cells and visualized portions of the paranasal sinuses are clear. No acute bony findings. IMPRESSION: Atrophy and chronic ischemic changes are present matching the February 2018 study. No acute intracranial finding seen.
--- NOTE | 2018-09-08 20:53 | ER ---
Nurse's Notes [facility] Name: Jayne Ledbetter Age: 78 yrs Sex: Female : 1940 Arrival Date: 09/08/2018 Time: 19:24 Bed 7 Private MD: Ashlee Quevedo Diagnosis: Acute cystitis Presentation: 09/08 19:40 Presenting complaint: Granddaughter states "she has been confused for a couple weeks, lp1 and sleeping a lot the last week"; Concerned about UTI; Patient denies any urinary symptoms, fever, states she has been sleepy recently. Transition of care: patient was not received from another setting of care. Onset of symptoms was September 08, 2018. Risk Assessment: Do you want to hurt yourself or someone else? Patient reports no desire to harm self or others. Initial Sepsis Screen: Does the patient meet any 2 criteria? No. Patient's initial sepsis screen is negative. Does the patient have a suspected source of infection? No. Patient's initial sepsis screen is negative. Care prior to arrival: None. 19:40 Method Of Arrival: Wheelchair lp1 19:40 Acuity: KEVIN 3 lp1 Historical: - Allergies: 19:46 No Known Allergies; lp1 - Home Meds: 19:46 amlodipine 2.5 mg oral tab once daily [Active]; lovastatin 10 mg Oral tab 1 tab once lp1 daily [Active]; metoprolol tartrate 25 mg Oral tab 2 times per day [Active]; aspirin 81 mg Oral chew 1 tab once daily [Active]; Oxygen \\T\\ 2L/NC [Active]; brimonidine ophthalmic ophthalmic [Active]; Timolol Maleate Opht [Active]; - PMHx: 19:46 Cancer; Glaucoma; heart disease; High Cholesterol; Hypertension; lp1 - PSHx: 19:46 CABG; lp1 - Immunization history:: Adult Immunizations up to date. - Social history:: Smoking status: Patient/guardian denies using tobacco, never smoked. - Ebola Screening: : No symptoms or risks identified at this time. Screenin:46 Abuse screen: Denies threats or abuse. Denies injuries from another. Nutritional lp1 screening: No deficits noted. Tuberculosis screening: No symptoms or risk factors identified. Fall Risk Total Cali Fall Scale indicates High Risk Score (45 or more points). Fall prevention measures have been instituted. Family Present and informed to notify staff if the need to leave the bedside As available patient and family educated on Fall Prevention Program and Strategies. Assessment: 19:40 General: Appears in no apparent distress. comfortable, Behavior is calm, cooperative, tl2 appropriate for age. General: Appears Behavior is drowsy. Pain: Denies pain. Neuro: Level of Consciousness is awake, obeys commands, Oriented to person, place, time, situation. Cardiovascular: Denies chest pain. Respiratory: Airway is patent Respiratory effort is even, unlabored, Respiratory pattern is regular, symmetrical. GI: No signs and/or symptoms were reported involving the gastrointestinal system. : Reports incontinence, Denies burning with urination, inability to void, urinary frequency. Derm: Skin is pink, warm \\T\\ dry. 20:20 Reassessment: Patient appears in no apparent distress at this time. Patient and/or tl2 family updated on plan of care and expected duration. Pain level reassessed. Patient is alert, oriented x 3, equal unlabored respirations, skin warm/dry/pink. 21:25 Reassessment: Patient appears in no apparent distress at this time. Patient and/or tl2 family updated on plan of care and expected duration. Pain level reassessed. Patient is alert, oriented x 3, equal unlabored respirations, skin warm/dry/pink. pt and family verbalized understanding of discharge instructions, need for follow up and prescription usage. Vital Signs: 19:42 BP 151 / 64; Pulse 60; Resp 18; Temp 97.6(O); Pulse Ox 93% on 2 lpm NC; Weight 72.12 lp1 kg; Height 5 ft. 0 in. (152.40 cm); Pain 0/10; 20:30 BP 133 / 84; Pulse 64; Resp 18; Pulse Ox 97% on 2 lpm NC; tl2 21:26 BP 113 / 88; Pulse 67; Resp 18; Pulse Ox 97% on 2 lpm NC; tl2 19:42 Body Mass Index 31.05 (72.12 kg, 152.40 cm) lp1 19:42 Patient uses home O2 lp1 ED Course: 19:24 Patient arrived in ED. es 19:25 Adam Mane MD is Attending Physician. ps1 19:26 Ashlee Quevedo MD is Private Physician. es 19:42 Triage completed. lp1 19:43 Arm band placed on. lp1 19:47 Patient has correct armband on for positive identification. Placed in gown. Bed in low lp1 position. Pulse ox on. NIBP on. 19:53 CMP Sent. tl2 19:53 CBC with Diff Sent. tl2 19:53 Inserted saline lock: 22 gauge in right wrist, using aseptic technique. Blood collected.tl2 20:16 CMP Sent. tl2 20:16 CBC with Diff Sent. tl2 20:16 Urine Microscopic Only Sent. tl2 20:16 Urine Culture Sent. tl2 20:16 Straight cath inserted, using sterile technique, 16 Fr. Specimen obtained. Returned tl2 yellow, slightly cloudy. Patient tolerated well. 20:28 CT Head Brain wo Cont In Process Unspecified. EDMS 20:52 Ashlee Quevedo MD is Referral Physician. ps1 21:25 Marsha Velasquez, ALIS is Primary Nurse. tl2 21:26 No provider procedures requiring assistance completed. IV discontinued, intact, tl2 bleeding controlled, No redness/swelling at site. Pressure dressing applied. Administered Medications: 20:58 Drug: Rocephin - (cefTRIAXone) 1 grams Route: IVPB; Infused Over: 30 mins; Site: right ea wrist; 21:26 Follow up: Response: No adverse reaction; Medication administered at discharge.; IV tl2 Status: Completed infusion Outcome: 20:52 Discharge ordered by . ps1 21:26 Discharged to home via wheelchair, with family. tl2 21:26 Condition: stable 21:26 Discharge instructions given to patient, family, Instructed on discharge instructions, follow up and referral plans. medication usage, Demonstrated understanding of instructions, follow-up care, medications, Prescriptions given X 1. 21:27 Patient left the ED. tl2 Addendum: 09/11/2018 15:14 Addendum: Culture Results: Positive urine culture. Bacteria is resistant to, has i w intermediate sensitivity, or is not tested against prescribed antibiotics. Report given to DONIS for further evaluation and then to assistant associate professor for follow up with patient. Phone call Attempt #1 phone disconnected Certified letter sent to listed address for patient. Signatures: Dispatcher [employer] EDMD Tania Trujillo Irene, RN RN iw Joycelyn Martinez RN RN lp1 Marsha Velasquez RN RN tl2 Susan Covington RN Adam Bueno ea, MD MD ps1 Corrections: (The following items were deleted from the chart) 09/08 19:49 19:48 Assist provider with eye exam using lp1 lp1
--- NOTE | 2018-09-08 20:53 | EDPHYS ---
Physician Documentation [facility] Name: Jayne Ledbetter Age: 78 yrs Sex: Female : 1940 Arrival Date: 09/08/2018 Time: 19:24 Bed 7 Private MD: Ashlee Quevedo ED Physician Adam Mane HPI: 09/08 19:48 This 78 yrs old Female presents to ER via Wheelchair with complaints of ps1 POSSIBLE UTI. 19:48 patient has a history of UTI. She additionally fell last week and has had increased ps1 somnolence since the event. The family believed that she may have had a UTI and treated her with left over amoxicillin for 5 days. She reportedly improved her symptoms but are now back. Patient is alert and oriented at this time and has no FND. . Historical: - Allergies: 19:46 No Known Allergies; lp1 - Home Meds: 19:46 amlodipine 2.5 mg oral tab once daily [Active]; lovastatin 10 mg Oral tab 1 tab once lp1 daily [Active]; metoprolol tartrate 25 mg Oral tab 2 times per day [Active]; aspirin 81 mg Oral chew 1 tab once daily [Active]; Oxygen \T\ 2L/NC [Active]; brimonidine ophthalmic ophthalmic [Active]; Timolol Maleate Opht [Active]; - PMHx: 19:46 Cancer; Glaucoma; heart disease; High Cholesterol; Hypertension; lp1 - PSHx: 19:46 CABG; lp1 - Immunization history:: Adult Immunizations up to date. - Social history:: Smoking status: Patient/guardian denies using tobacco, never smoked. - Ebola Screening: : No symptoms or risks identified at this time. ROS: 19:48 Constitutional: Negative for fever, chills, and weight loss, Eyes: Negative for injury, ps1 pain, redness, and discharge, Cardiovascular: Negative for chest pain, palpitations, and edema, Respiratory: Negative for shortness of breath, cough, wheezing, and pleuritic chest pain, Abdomen/GI: Negative for abdominal pain, nausea, vomiting, diarrhea, and constipation. 19:48 : Positive for urinary symptoms, urinary frequency. Vital Signs: 19:42 BP 151 / 64; Pulse 60; Resp 18; Temp 97.6(O); Pulse Ox 93% on 2 lpm NC; Weight 72.12 lp1 kg; Height 5 ft. 0 in. (152.40 cm); Pain 0/10; 20:30 BP 133 / 84; Pulse 64; Resp 18; Pulse Ox 97% on 2 lpm NC; tl2 21:26 BP 113 / 88; Pulse 67; Resp 18; Pulse Ox 97% on 2 lpm NC; tl2 19:42 Body Mass Index 31.05 (72.12 kg, 152.40 cm) lp1 19:42 Patient uses home O2 lp1 MDM: 19:56 Patient medically screened. ps1 09/08 19:42 Order name: CBC with Diff; Complete Time: 20:32 ps1 09/08 19:42 Order name: CMP; Complete Time: 20:45 ps1 09/08 19:42 Order name: CT Head Brain wo Cont; Complete Time: 20:45 [facility] 09/08 20:11 Order name: Urine Culture [facility] [place] 09/08 20:11 Order name: Urine Microscopic Only; Complete Time: 20:32 [facility] 09/08 20:16 Order name: Urine Dipstick--Ancillary (enter results); Complete Time: 20:32 [facility] 09/08 19:42 Order name: Urine Dipstick-Ancillary (obtain specimen); Complete Time: 20:16 ps1 09/08 19:42 Order name: Straight Cath - Urine; Complete Time: 20:16 ps1 Administered Medications: 20:58 Drug: Rocephin - (cefTRIAXone) 1 grams Route: IVPB; Infused Over: 30 mins; Site: right ea wrist; 21:26 Follow up: Response: No adverse reaction; Medication administered at discharge.; IV tl2 Status: Completed infusion Disposition: 09/08/18 20:52 Discharged to Home. Impression: Acute cystitis. - Condition is Stable. - Discharge Instructions: Urinary Tract Infection, Adult. - Prescriptions for Keflex 500 mg Oral Capsule - take 1 capsule by ORAL route every 8 hours for 10 days; 30 capsule. - Medication Reconciliation Form, Thank You Letter, Antibiotic Education, Prescription Opioid Use form. - Follow up: Ashlee Quevedo MD; When: 48 Hours; Reason: Further diagnostic work-up, Recheck today's complaints, Re-evaluation by your physician. - Problem is new. - Symptoms are unchanged. Signatures: Dispatcher [employer] EDJoycelyn Ryder RN RN lp1 Marsha Velasquez RN RN tl2 Susan Covington, RN RN Adam Hameed MD MD ps1 Corrections: (The following items were deleted from the chart) 21:27 20:52 09/08/2018 20:52 Discharged to Home. Impression: Acute cystitis. Condition is tl2 Stable. Forms are Medication Reconciliation Form, Thank You Letter, Antibiotic Education, Prescription Opioid Use. Follow up: Ashlee Quevedo; When: 48 Hours; Reason: Further diagnostic work-up, Recheck today's complaints, Re-evaluation by your physician. Problem is new. Symptoms are unchanged. ps1
[2018-09-08] MEDS ORDERED: CEFTRIAXONE/SWI 1gm 1 GM/10 ML SYR ONE (21:07)
[2018-09-08 22:15] VITALS: TEMP 97.6
[2018-09-08 22:17] VITALS: O2SAT 97
[2018-09-08 22:18] VITALS: BP 113/88
== END 2018-09-08 21:27 | disposition home or self-care (01) ==
LOC: ER 19:18
DX: N30.00 Acute cystitis without hematuria (principal); I10 Essential (primary) hypertension; E78.00 Pure hypercholesterolemia, unspecified; I51.9 Heart disease, unspecified; W19.XXXA Unspecified fall, initial encounter; Z79.82 Long term (current) use of aspirin; Z95.1 Presence of aortocoronary bypass graft
CPT/HCPCS: 96365; 87088; 85025; 87086; 36415; 87077; 87186; 80053; 70450; 51702; 99284; J0696; 81003; 81015

== ENCOUNTER 2018-09-16 18:05 | Emergency (ER) | payer OTHER ==
--- OUTSIDE RECORDS SUMMARY | 2018-09-16 18:08 | XMS REPORT ---
[...] Assessment CAD (coronary artery disease), I25.10 Active [place] coronary artery Problem Dependence on supplemental oxygen [...] Problem CAD (coronary artery disease), I25.10 Active [place] coronary artery Problem Urinary incontinence R32 Active [...] End Status Dosage System Date Date Metoprolol [facility] 87035687214 25 MG Orally Active 1 tablet Tartrate Twice a day with food Caltrate 600+D ND 14464206317 600-800 MG-UNIT Active 1 tablet Orally Once a with a meal day Norvasc [facility] 08278440700 5 MG Orally Once Active 1 tablet a day Xalatan [facility] 60448172366 0.005 % Active 1 drop into Ophthalmic Once affected a day eye in the evening Lovastatin [facility] 61500974047 10 MG Orally Active 1 tablet Once a day with a meal Results No Known Results Summary Purpose eClinicalWorks Submission
--- OUTSIDE RECORDS SUMMARY | 2018-09-16 18:08 | XMS REPORT ---
:1940 Author Organization eClinicalWorks Care Team Providers Name Role Phone Quevedo, Na Provider Role Unavailable Allergies No Known Allergies Problems Problem Type Condition Code Onset Dates Condition Status Problem CAD (coronary artery disease), I25.10 Active [place] coronary artery Problem Pulmonary fibrosis J84.10 Active [...]
[2018-09-16] MEDS ORDERED: NA CHLORIDE 0.9% 1,000 ML ONE (19:41)
--- NOTE | 2018-09-16 19:43 | RAD REPORT ---
EXAM DESCRIPTION: RAD - Chest Single View - 09/16/2018 7:22 pm CLINICAL HISTORY: Cough COMPARISON: February 2018 TECHNIQUE: AP portable chest image was obtained 1919 hours . FINDINGS: Lung volumes are low. No focal mass, consolidation or failure finding. Sternotomy wires ar e in place. Heart and vasculature are normal. No measurable pleural effusion and no pneumothorax. No acute bony abnormality seen. No acute aortic findings suspected. IMPRESSION: No acute cardiopulmonary process. No suspicious change from comparison.
[2018-09-16 19:56] LABS: Absolute Lymphocytes (CBC) 2.3 K/uL (0.7-4.9); Basophils % 0.2 % (0-1.3); Hematocrit 37.3 % (36.0-45.0); Lymphocytes % 17.7 % (15.3-44.8); MPV 7.6 fL (7.6-11.3); RBC Red Blood Cell Count 4.38 M/uL (3.86-4.86)
[2018-09-16 19:59] LABS: Protime INR 1.08
[2018-09-16 20:18] LABS: ALT/SGPT 17 U/L (12-78); AST/SGOT 20 U/L (15-37); Albumin 2.9 g/dL (3.4-5.0); Alkaline Phosphatase 113 U/L (45-117); BUN Blood Urea Nitrogen 20 mg/dL (7-18); Bicarbonate 33 mmol/L (21-32); Bilirubin Direct < 0.1 mg/dL (0-0.2); Bilirubin Total 0.2 mg/dL (0.2-1.0); Glucose Level 112 mg/dL (74-106); Magnesium 2.1 mg/dL (1.8-2.4); NT PRO-BNP 195 pg/mL (<450); Potassium 4.5 mmol/L (3.5-5.1); Protein, Total 7.3 g/dL (6.4-8.2); Sodium Level 143 mmol/L (136-145); Troponin (Emerg Dept Use Only) < 0.02 ng/mL (0.0-0.045)
--- NOTE | 2018-09-16 20:37 | EDPHYS ---
Physician Documentation [facility] Name: Jayne Ledbetter Age: 78 yrs Sex: Female : 1940 Arrival Date: 09/16/2018 Time: 18:08 Bed 6 Private MD: Ashlee Quevedo ED Physician William Clifton HPI: 09/16 18:51 This 78 yrs old Female presents to ER via Wheelchair with complaints of patricia Dizziness, Hallucinations, Urinary Problem. 18:51 The patient presents with dizziness, generalized weakness. Onset: The symptoms/episode patricia began/occurred 1 day(s) ago. Context: occurred at an unknown location. Modifying factors: The symptoms are alleviated by nothing, the symptoms are aggravated by nothing. Associated signs and symptoms: The patient has no apparent associated signs or symptoms. Severity of symptoms: At their worst the symptoms were mild in the emergency department the symptoms are unchanged. Patient's baseline: Neuro: alert and fully oriented. Historical: - Allergies: 18:35 No Known Allergies; aj - Home Meds: 18:35 amlodipine 2.5 mg tab once daily [Active]; aspirin 81 mg Oral chew 1 tab once daily aj [Active]; brimonidine ophthalmic [Active]; lovastatin 10 mg Oral tab 1 tab once daily [Active]; metoprolol tartrate 25 mg Oral tab 2 times per day [Active]; Oxygen \T\ 2L/NC [Active]; Timolol Maleate Opht [Active]; - PMHx: 18:35 Cancer; Glaucoma; heart disease; High Cholesterol; Hypertension; aj - PSHx: 18:35 CABG; aj - Immunization history:: Adult Immunizations up to date. - Social history:: Smoking status: Patient/guardian denies using tobacco. - Ebola Screening: : Patient negative for fever greater than or equal to 101.5 degrees Fahrenheit, and additional compatible Ebola Virus Disease symptoms Patient denies exposure to infectious person Patient denies travel to an Ebola-affected area in the 21 days before illness onset No symptoms or risks identified at this time. - Family history:: not pertinent. ROS: 18:51 Constitutional: Negative for fever, chills, and weight loss, Eyes: Negative for injury, patricia pain, redness, and discharge, ENT: Negative for injury, pain, and discharge, Neck: Negative for injury, pain, and swelling, Cardiovascular: Negative for chest pain, palpitations, and edema, Respiratory: Negative for shortness of breath, cough, wheezing, and pleuritic chest pain, Abdomen/GI: Negative for abdominal pain, nausea, vomiting, diarrhea, and constipation, Back: Negative for injury and pain, : Negative for injury, bleeding, discharge, and swelling, MS/Extremity: Negative for injury and deformity, Skin: Negative for injury, rash, and discoloration, Psych: Negative for depression, anxiety, suicide ideation, homicidal ideation, and hallucinations, Allergy/Immunology: Negative for hives, rash, and allergies, Endocrine: Negative for neck swelling, polydipsia, polyuria, polyphagia, and marked weight changes, Hematologic/Lymphatic: Negative for swollen nodes, abnormal bleeding, and unusual bruising. 18:51 Neuro: Positive for altered mental status. Exam: 18:51 Constitutional: This is a well developed, well nourished patient who is awake, alert, patricia and in no acute distress. Head/Face: Normocephalic, atraumatic. Eyes: Pupils equal round and reactive to light, extra-ocular motions intact. Lids and lashes normal. Conjunctiva and sclera are non-icteric and not injected. Cornea within normal limits. Periorbital areas with no swelling, redness, or edema. ENT: Nares patent. No nasal discharge, no septal abnormalities noted. Tympanic membranes are normal and external auditory canals are clear. Oropharynx with no redness, swelling, or masses, exudates, or evidence of obstruction, uvula midline. Mucous membranes moist. Neck: Trachea midline, no thyromegaly or masses palpated, and no cervical lymphadenopathy. Supple, full range of motion without nuchal rigidity, or vertebral point tenderness. No Meningismus. Chest/axilla: Normal chest wall appearance and motion. Nontender with no deformity. No lesions are appreciated. Cardiovascular: Regular rate and rhythm with a normal S1 and S2. No gallops, murmurs, or rubs. Normal PMI, no JVD. No pulse deficits. Respiratory: Lungs have equal breath sounds bilaterally, clear to auscultation and percussion. No rales, rhonchi or wheezes noted. No increased work of breathing, no retractions or nasal flaring. Abdomen/GI: Soft, non-tender, with normal bowel sounds. No distension or tympany. No guarding or rebound. No evidence of tenderness throughout. Back: No spinal tenderness. No costovertebral tenderness. Full range of motion. Female : Normal external genitalia. Skin: Warm, dry with normal turgor. Normal color with no rashes, no lesions, and no evidence of cellulitis. MS/ Extremity: Pulses equal, no cyanosis. Neurovascular intact. Full, normal range of motion. Neuro: Awake and alert, GCS 15, oriented to person, place, time, and situation. Cranial nerves II-XII grossly intact. Motor strength 5/5 in all extremities. Sensory grossly intact. Cerebellar exam normal. Normal gait. Psych: Awake, alert, with orientation to person, place and time. Behavior, mood, and affect are within normal limits. 20:34 Neck: External neck: is normal, no acute changes, Thyroid: appears normal, no acute patricia changes, Trachea: is midline with no obvious abnormalities, no acute changes, ROM/movement: is normal, no acute changes, Meningeal signs: are not present, Kernig's sign is negative, Brudzinski's sign is negative. Vital Signs: 18:35 BP 184 / 64; Pulse 88; Resp 19; Temp 97.5; Pulse Ox 99% on R/A; Weight 72.12 kg; Height aj 5 ft. 0 in. (152.40 cm); 19:30 BP 136 / 58; Pulse 75; Resp 18; Pulse Ox 97% on 3 lpm NC; lp1 21:10 BP 159 / 57; Pulse 76; Resp 18; Temp 97.8(O); Pulse Ox 99% on 3 lpm NC; lp1 18:35 Body Mass Index 31.05 (72.12 kg, 152.40 cm) MDM: 18:39 Patient medically screened. [facility] 18:53 Data reviewed: vital signs, nurses notes, lab test result(s), EKG, radiologic studies, [facility] plain films. 09/16 18:50 Order name: Basic Metabolic Panel; Complete Time: 20:33 [facility] 09/16 18:50 Order name: CBC with Diff; Complete Time: 20:08 [facility] 09/16 18:50 Order name: LFT's; Complete Time: 20:33 [facility] 09/16 18:50 Order name: Magnesium; Complete Time: 20:33 [facility] 09/16 18:50 Order name: NT PRO-BNP; Complete Time: 20:33 [facility] 09/16 18:50 Order name: PT-INR; Complete Time: 20:08 [facility] 09/16 18:50 Order name: Troponin (emerg Dept Use Only); Complete Time: 20:33 [facility] 09/16 18:50 Order name: XRAY Chest (1 view); Complete Time: 20:08 [facility] 09/16 18:50 Order name: EKG; Complete Time: 18:52 [facility] 09/16 18:50 Order name: Cardiac monitoring; Complete Time: 19:17 [facility] 09/16 18:50 Order name: Urine Culture [facility] 09/16 20:33 Order name: Urine Dipstick--Ancillary (enter results) [facility] 09/16 18:50 Order name: EKG - Nurse/Tech; Complete Time: 20:42 [facility] 09/16 18:50 Order name: IV Saline Lock; Complete Time: 19:17 [facility] 09/16 18:50 Order name: Labs collected and sent; Complete Time: 20:42 [facility] 09/16 18:50 Order name: O2 Per Protocol; Complete Time: 19:17 [facility] 09/16 18:50 Order name: O2 Sat Monitoring; Complete Time: 19:17 [facility] 09/16 18:50 Order name: Urine Dipstick-Ancillary (obtain specimen); Complete Time: 20:42 [facility] Administered Medications: 19:27 Drug: NS 0.9% 1000 ml Route: IV; Rate: 125 ml/hr; Site: left forearm; ao 21:18 Follow up: IV Status: IV converted to saline lock lp1 20:51 Drug: Rocephin 1 grams Route: IV; Rate: per protocol; Site: left antecubital; ao 21:18 Follow up: IV Status: Completed infusion; IV Intake: 10ml lp1 Disposition: 09/16/18 20:35 Discharged to Home. Impression: Dizziness and giddiness, Altered mental status, unspecified, Dysuria. - Condition is Stable. - Discharge Instructions: Confusion, Dizziness, Dysuria, Dizziness, [id number]. - Prescriptions for Cipro 250 mg Oral Tablet - take 1 tablet by ORAL route every 12 hours; 10 tablet. - Medication Reconciliation Form, Thank You Letter, Antibiotic Education, Prescription Opioid Use form. - Follow up: Ashlee Quevedo; When: 2 - 3 days; Reason: Recheck today's complaints, Continuance of care, Re-evaluation by your physician. - Problem is new. - Symptoms have improved. Signatures: Dispatcher [employer] Janet Earl, RN William Pinzon MD MD cha Pena, Laura, RN RN lp1 aHyes Greer RN RN ao Corrections: (The following items were deleted from the chart) 21:18 20:35 09/16/2018 20:35 Discharged to Home. Impression: Dizziness and giddiness; Altered lp1 mental status, unspecified; Dysuria. Condition is Stable. Discharge Instructions: Confusion, Dizziness, Dysuria, Dizziness, [id number]. Prescriptions for Cipro 250 mg Oral Tablet - take 1 tablet by ORAL route every 12 hours; 14 tablet. and Forms are Medication Reconciliation Form, Thank You Letter, Antibiotic Education, Prescription Opioid Use. Follow up: Ashlee Quevedo; When: 2 - 3 days; Reason: Recheck today's complaints, Continuance of care, Re-evaluation by your physician. Problem is new. Symptoms have improved. patricia
--- NOTE | 2018-09-16 20:37 | ER ---
Nurse's Notes [facility] Name: Jayne Ledbetter Age: 78 yrs Sex: Female : 1940 Arrival Date: 09/16/2018 Time: 18:08 Bed 6 Private MD: Ashlee Quevedo Diagnosis: Dizziness and giddiness;Altered mental status, unspecified;Dysuria Presentation: 09/16 18:33 Presenting complaint: Child states: Seen here last week for UTI symptoms started on aj ABX, with no improvement in symptoms. Denies urinary symptoms. Family reports confusion and aggravation, especially at night. Transition of care: patient was not received from another setting of care. Onset of symptoms was September 10, 2018. Risk Assessment: Do you want to hurt yourself or someone else? Patient reports no desire to harm self or others. Initial Sepsis Screen: Does the patient meet any 2 criteria? No. Patient's initial sepsis screen is negative. Does the patient have a suspected source of infection? No. Patient's initial sepsis screen is negative. Care prior to arrival: None. 18:33 Method Of Arrival: Wheelchair 18:33 Acuity: KEVIN 3 aj Triage Assessment: 18:35 General: Appears in no apparent distress. comfortable, Behavior is calm, cooperative, aj appropriate for age. Pain: Denies pain. Neuro: Level of Consciousness is awake, alert, obeys commands, Oriented to person, place, time, situation, Appropriate for age. Respiratory: Airway is patent Respiratory effort is even, unlabored, Respiratory pattern is regular, symmetrical. Derm: Skin is intact, is healthy with good turgor, Skin is pink, warm \T\ dry. normal. Historical: - Allergies: 18:35 No Known Allergies; aj - Home Meds: 18:35 amlodipine 2.5 mg tab once daily [Active]; aspirin 81 mg Oral chew 1 tab once daily aj [Active]; brimonidine ophthalmic [Active]; lovastatin 10 mg Oral tab 1 tab once daily [Active]; metoprolol tartrate 25 mg Oral tab 2 times per day [Active]; Oxygen \T\ 2L/NC [Active]; Timolol Maleate Opht [Active]; - PMHx: 18:35 Cancer; Glaucoma; heart disease; High Cholesterol; Hypertension; aj - PSHx: 18:35 CABG; aj - Immunization history:: Adult Immunizations up to date. - Social history:: Smoking status: Patient/guardian denies using tobacco. - Ebola Screening: : Patient negative for fever greater than or equal to 101.5 degrees Fahrenheit, and additional compatible Ebola Virus Disease symptoms Patient denies exposure to infectious person Patient denies travel to an Ebola-affected area in the 21 days before illness onset No symptoms or risks identified at this time. - Family history:: not pertinent. Screenin:46 Abuse screen: Denies threats or abuse. Denies injuries from another. Nutritional iw screening: No deficits noted. Tuberculosis screening: No symptoms or risk factors identified. 21:17 Fall Risk Total Cali Fall Scale indicates High Risk Score (45 or more points). Fall lp1 prevention measures have been instituted. As available patient and family educated on Fall Prevention Program and Strategies. Assessment: 18:45 General: Appears in no apparent distress. Behavior is calm, cooperative. Pain: Denies iw pain. Neuro: Level of Consciousness is awake, alert, obeys commands, Oriented to person, place, situation, Moves all extremities. Cardiovascular: Patient's skin is warm and dry. Respiratory: Respiratory effort is even, unlabored, Respiratory pattern is regular. GI: Patient currently denies nausea, vomiting. : Denies burning with urination, pain with urination. Derm: Skin is intact, is fragile. Musculoskeletal: Range of motion: intact in all extremities. 19:17 General: Appears in no apparent distress. comfortable, Behavior is calm, cooperative. ao General: Family reports Patient is confused. Pain: Denies pain. Neuro: Level of Consciousness is awake, alert, obeys commands, Oriented to person, place, situation, Moves all extremities. Full function Speech is normal. Neuro: Reports. Cardiovascular: Patient's skin is warm and dry. Respiratory: Airway is patent Trachea Respiratory effort is even, unlabored, Respiratory pattern is regular, symmetrical. GI: Abdomen is non-distended. : Reports urgency, urinary frequency, Denies burning with urination, pain with urination. EENT: No signs and/or symptoms were reported regarding the EENT system. Derm: Skin is intact, is fragile. Musculoskeletal: Circulation, motion, and sensation intact. Range of motion:. 20:52 Reassessment: Patient appears in no apparent distress at this time. Patient and/or ao family updated on plan of care and expected duration. Pain level reassessed. Patient is alert, oriented x 3, equal unlabored respirations, skin warm/dry/pink. Vital Signs: 18:35 BP 184 / 64; Pulse 88; Resp 19; Temp 97.5; Pulse Ox 99% on R/A; Weight 72.12 kg; Height aj 5 ft. 0 in. (152.40 cm); 19:30 BP 136 / 58; Pulse 75; Resp 18; Pulse Ox 97% on 3 lpm NC; lp1 21:10 BP 159 / 57; Pulse 76; Resp 18; Temp 97.8(O); Pulse Ox 99% on 3 lpm NC; lp1 18:35 Body Mass Index 31.05 (72.12 kg, 152.40 cm) ED Course: 18:08 Patient arrived in ED. as 18:08 Ashlee Quevedo MD is Private Physician. as 18:35 Triage completed. aj 18:35 Arm band placed on right wrist. Patient placed in an exam room. aj 18:39 William Clifton MD is Attending Physician. patricia 18:46 Patient has correct armband on for positive identification. Bed in low position. Call iw light in reach. Adult w/ patient. Pulse ox on. NIBP on. 19:16 Hayes Greer, ALIS is Primary Nurse. ao 19:22 XRAY Chest (1 view) In Process Unspecified. EDMS 19:27 Inserted saline lock: 22 gauge in left antecubital area, using aseptic technique. Blood ao collected. 20:35 Ashlee Quevedo MD is Referral Physician. patricia 21:10 No provider procedures requiring assistance completed. lp1 21:16 Inserted saline lock: 20 gauge in left antecubital area, using aseptic technique. ao 21:17 IV discontinued, No redness/swelling at site. Pressure dressing applied. lp1 Administered Medications: 19:27 Drug: NS 0.9% 1000 ml Route: IV; Rate: 125 ml/hr; Site: left forearm; ao 21:18 Follow up: IV Status: IV converted to saline lock lp1 20:51 Drug: Rocephin 1 grams Route: IV; Rate: per protocol; Site: left antecubital; ao 21:18 Follow up: IV Status: Completed infusion; IV Intake: 10ml lp1 Intake: 21:18 IV: 10ml; Total: 10ml. lp1 Outcome: 20:35 Discharge ordered by . patricia 21:17 Discharged to home via wheelchair, with family. lp1 21:17 Condition: good 21:17 Discharge instructions given to patient, family, Instructed on discharge instructions, follow up and referral plans. medication usage, Demonstrated understanding of instructions, follow-up care, medications, Prescriptions given X 1. 21:18 Patient left the ED. lp1 Signatures: Dispatcher [employer] EDJanet Melendrez RN RN aj Anderson, Corey, MD MD cha Martinez, Amelia as Williams, Irene, RN RN iw Joycelyn Martinez RN RN lp1 Hayes Greer RN RN ao Corrections: (The following items were deleted from the chart) 21:17 21:10 BP 159 / 57; Pulse 76bpm; Resp 18bpm; Pulse Ox 99% RA; lp1 lp1
[2018-09-16 21:05] LABS: Urine Blood NEGATIVE (NEG); Urine Glucose NEGATIVE (NEG); Urine Protein NEGATIVE (NEG)
[2018-09-16] MEDS ORDERED: CEFTRIAXONE/SWI 1gm 1 GM/10 ML SYR ONE (21:05)
[2018-09-16 21:54] VITALS: BP 159/57; TEMP 97.8; O2SAT 99
--- NOTE | 2018-09-17 10:36 | EKG ---
Test Date: 2018-09-16 Test Time: 19:44:58 User Interface Artist: LINA MEASUREMENT RESULTS: Intervals: Rate: 71 CA: 190 QRSD: 80 QT: 394 QTc: 428 [place]: P: 13 CA: 190 QRS: 57 T: 43 INTERPRETIVE STATEMENTS: Normal sinus rhythm RSR' or QR pattern in V1 suggests right ventricular conduction delay Borderline ECG Compared to ECG 03/12/2018 10:13:04 RSR' in V1 or V2 now present Ventricular premature complex(es) no longer present Electronically Signed On 09-17-18 10:35:10 CDT by Juan Ng
== END 2018-09-16 21:18 | disposition home or self-care (01) ==
LOC: ER 18:05
DX: R41.82 Altered mental status, unspecified (principal); R30.0 Dysuria; R42 Dizziness and giddiness; E78.00 Pure hypercholesterolemia, unspecified; I10 Essential (primary) hypertension; C80.1 Malignant (primary) neoplasm, unspecified; Z79.82 Long term (current) use of aspirin
CPT/HCPCS: 96365; 96361; 93005; 87088; 85025; 87086; 80048; 36415; 83735; 85610; 80076; 81003; 84484; 83880; 71045; 99284; J0696; J7030

== ENCOUNTER 2018-09-25 13:36 | Emergency (ER) | payer OTHER ==
--- OUTSIDE RECORDS SUMMARY | 2018-09-25 13:39 | XMS REPORT ---
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 Assessment Alzheimer''s disease, unspecified G30.9 Active Problem Dependence on supplemental oxygen Z99.81 Active Problem Chronic atrial fibrillation I48.2 Active Problem Pulmonary fibrosis J84.10 Active Problem At risk for falling Z91.81 Active Problem Leucocytosis D72.829 Active Problem Neutrophilic leukocytosis D72.9 Active Problem Hospital discharge follow-up Z09 Active Problem 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 Problem Recurrent falls R29.6 Active Problem 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 Active classified elsewhere with behavioral disturbance Problem Glaucoma H40.9 Active Problem Diverticulosis of colon K57.30 Active Assessment Dependence on supplemental oxygen Z99.81 Active Problem Hallucinations R44.3 Active Problem Degenerative joint disease M19.90 Active Assessment Psychophysiological insomnia F51.04 Active Problem Alzheimer''s disease, unspecified G30.9 Active Assessment Hallucinations R44.3 Active Problem CKD (chronic kidney disease) stage N18.3 Active 3, GFR 30-59 ml/min Problem Psychophysiological insomnia F51.04 Active Problem Failure to thrive in adult R62.7 Active Assessment Chronic atrial fibrillation I48.2 Active Problem HTN (hypertension) I10 Active Assessment CAD (coronary artery disease), I25.10 Active [place] coronary artery Problem Obesity E66.9 Active Assessment Neutrophilic leukocytosis D72.9 Active Problem Osteopenia M85.80 Active Assessment Pulmonary fibrosis J84.10 Active Problem Renal insufficiency N28.9 Active Assessment Failure to thrive in adult R62.7 Active Problem CAD (coronary artery disease), I25.10 Active [place] coronary artery Assessment Recurrent falls R29.6 Active Problem 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 Problem Mixed hyperlipidemia E78.2 Active Problem Urinary incontinence R32 Active Medications Medication Code Code Instructions Start End Status Dosage System Date Date Xalatan [facility] 39213319965 0.005 % Active 1 drop into Ophthalmic Once affected a day eye in the evening Lovastatin [facility] 04073333322 10 MG Orally Active 1 tablet Once a day with a meal Caltrate 600+D [facility] 45872799162 600-800 MG-UNIT Active 1 tablet Orally Once a with a meal day Norvasc [facility] 51709026832 5 MG Orally Once Active 1 tablet a day Trazodone HCl [facility] 10306870652 50 MG Orally September 18, Active 1 tablet at Once a day 2019 bedtime Metoprolol [facility] 20191201204 25 MG Orally Active 1 tablet Tartrate Twice a day with food Results No Known Results Summary Purpose [employer]Works Submission
--- OUTSIDE RECORDS SUMMARY | 2018-09-25 13:39 | XMS REPORT ---
[...] Assessment CAD (coronary artery disease), I25.10 Active [place] coronary artery Problem Dependence on supplemental oxygen [...] Problem CAD (coronary artery disease), I25.10 Active [place] coronary artery Problem Urinary incontinence R32 Active [...] End Status Dosage System Date Date Metoprolol [facility] 61926534579 25 MG Orally Active 1 tablet Tartrate Twice a day with food Caltrate 600+D ND 81574983299 600-800 MG-UNIT Active 1 tablet Orally Once a with a meal day Norvasc [facility] 39378370363 5 MG Orally Once Active 1 tablet a day Xalatan [facility] 23262819321 0.005 % Active 1 drop into Ophthalmic Once affected a day eye in the evening Lovastatin [facility] 47035279059 10 MG Orally Active 1 tablet Once a day with a meal Results No Known Results Summary Purpose [employer] Submission
--- OUTSIDE RECORDS SUMMARY | 2018-09-25 13:39 | XMS REPORT ---
:1940 Author Organization [employer] Care Team Providers Name Role Phone Quevedo, Na Provider Role Unavailable Allergies No Known Allergies Problems Problem Type Condition Code Onset Dates Condition Status Problem CAD (coronary artery disease), I25.10 Active [place] coronary artery Problem Pulmonary fibrosis J84.10 Active [...]
[2018-09-25] MEDS ORDERED: MORPHINE 4 MG/ML SYR ONE (16:22)
[2018-09-25] MEDS ORDERED: ONDANSETRON 4 MG (ODT) TAB ONE (16:28)
--- NOTE | 2018-09-25 17:05 | RAD REPORT ---
EXAM DESCRIPTION: RAD - Pelvis - 09/25/2018 3:11 pm CLINICAL HISTORY: Right hip pain status post fall FINDINGS: No fracture or dislocation is seen. Osteoporosis
--- NOTE | 2018-09-25 17:06 | RAD REPORT ---
EXAM DESCRIPTION: RAD - Hip Right 2 View - 09/25/2018 3:11 pm CLINICAL HISTORY: Right hip pain FINDINGS: No fracture or dislocation is seen. Osteoporosis
--- NOTE | 2018-09-25 17:08 | RAD REPORT ---
EXAM DESCRIPTION: RAD - Shoulder Right 2 View - 09/25/2018 3:11 pm CLINICAL HISTORY: Right shoulder pain status post fall FINDINGS: No fracture or dislocation is seen. Osteoporosis Marked osteoarthritis involves the glenohumeral joint
--- NOTE | 2018-09-25 18:04 | EDPHYS ---
Physician Documentation [facility] Name: Jayne Ledbetter Age: 78 yrs Sex: Female : 1940 Arrival Date: 09/25/2018 Time: 13:39 Bed 2 Private MD: ED Physician Booker Jenkins HPI: 09/25 14:05 This 78 yrs old Female presents to ER via EMS with complaints of Shoulder jmm Injury - R-dislocated. 14:05 The patient or guardian complains of pain. Onset: The symptoms/episode began/occurred 3 jmm day(s) ago. Modifying factors: the symptoms are alleviated by nothing. The symptoms are aggravated by movement. This is an 78 year old female currently on hospice that presents to the ED with complaints of right shoulder pain and right hip pain beginning this past Saturday. Denies an acute injury but states the patient was sitting upright for approx 7 hours. Xray at home revealed concerns for a dislocated shoulder. Patient also complains of right hip pain. . 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 - Social history:: Smoking status: Patient/guardian denies using tobacco. - Ebola Screening: : No symptoms or risks identified at this time. ROS: 14:05 Constitutional: Negative for fever, chills, and weight loss, Cardiovascular: Negative jmm for chest pain, palpitations, and edema, Respiratory: Negative for shortness of breath, cough, wheezing, and pleuritic chest pain. 14:05 MS/extremity: Positive for pain. 14:05 All other systems are negative. Exam: 14:05 Constitutional: This is a well developed, well nourished patient who is awake, alert, jmm and in no acute distress. Head/Face: atraumatic. Eyes: EOMI, no conjunctival erythema appreciated ENT: Moist Mucus Membranes Neck: Trachea midline, Supple Chest/axilla: Normal chest wall appearance and motion. Cardiovascular: Regular rate and rhythm. No edema appreciated Respiratory: Normal respirations, no respiratory distress appreciated Abdomen/GI: Non distended, soft Back: Normal ROM 14:05 Musculoskeletal/extremity: right shoulder TTP, painful rom noted, full radial pulse, compartments are soft, NVI. 14:05 Skin: Appearance: Color: normal in color. 14:05 Neuro: Orientation: is normal, Mentation: is normal, Memory: is normal. 14:05 Psych: Behavior/mood is pleasant, cooperative. Vital Signs: 13:35 BP 128 / 65; Pulse 105; Resp 18; Temp 98.8; Pulse Ox 88% on R/A; Weight 72 kg; Height 5 sv ft. 0 in. (152.40 cm); 14:53 BP 136 / 97; Pulse 110; Resp 17; Pulse Ox 98% on 2 lpm NC; Pain 8/10; hb 15:37 BP 130 / 84; Pulse 100; Resp 16; Pulse Ox 97% on 2 lpm NC; sv 16:43 BP 122 / 69; Pulse 95; Resp 18; Pulse Ox 96% on 2 lpm NC; sv 17:41 BP 119 / 71; Pulse 97; Resp 20; Pulse Ox 95% on 2 lpm NC; sv 13:35 Body Mass Index 31.00 (72.00 kg, 152.40 cm) sv 13:35 Pt placed on O2 \T\ 2L per NC. O2 sat up to 99%. sv MDM: 14:05 Patient medically screened. [facility] 17:55 Data reviewed: vital signs, nurses notes. Counseling: I had a detailed discussion with brittaney the patient and/or guardian regarding: the historical points, exam findings, and any diagnostic results supporting the discharge/admit diagnosis, radiology results, the need for outpatient follow up, to return to the emergency department if symptoms worsen or persist or if there are any questions or concerns that arise at home. 09/25 14:12 Order name: Shoulder Right (2 View) XRAY; Complete Time: 17:41 [facility] 09/25 14:12 Order name: Pelvis XRAY; Complete Time: 17:41 [facility] 09/25 14:12 Order name: Hip Right 2 View XRAY; Complete Time: 17:41 [facility] Administered Medications: 16:22 Not Given (other medication used): [place] 10 mg-325 mg 1 tabs PO once [facility] 16:27 Drug: morphine 4 mg Route: IM; Site: left deltoid; hb 17:05 Follow up: Response: No adverse reaction hb 16:29 Drug: Zofran 4 mg Route: PO; hb 17:05 Follow up: Response: No adverse reaction hb Disposition: 09/25/18 18:04 Discharged to Home. Impression: Pain in right shoulder, Pain in right hip. - Condition is Stable. - Discharge Instructions: Joint Pain, Arthritis, Musculoskeletal Pain, Shoulder Pain, Gtke-ve-Ipnj, Hip Pain. - Prescriptions for Tylenol- Codeine #3 300-30 mg Oral Tablet - take 1 tablet by ORAL route every 6 hours As needed; 20 tablet. - Medication Reconciliation Form, Thank You Letter, Antibiotic Education, Prescription Opioid Use form. - Follow up: Nirmal Butler MD; When: 2 - 3 days; Reason: Recheck today's complaints, Continuance of care, Re-evaluation by your physician. Addendum: 09/29/2018 08:42 Co-signature as Attending Physician, Booker Jenkins MD I agree with the assessment and k dr plan of care. Signatures: Dispatcher [employer] EDMariann Dong RN RN Booker Jenkins MD MD [facility] Jin Aragon PA PA morganm Osiris Weaver RN RN Eleni Cavanaugh RN RN Corrections: (The following items were deleted from the chart) 09/25 18:28 18:04 09/25/2018 18:04 Discharged to Home. Impression: Pain in right shoulder; Pain in ss right hip. Condition is Stable. Forms are Medication Reconciliation Form, Thank You Letter, Antibiotic Education, Prescription Opioid Use. Follow up: Dr. Nirmal Butler; When: 2 - 3 days; Reason: Recheck today's complaints, Continuance of care, Re-evaluation by your physician. [facility]
--- NOTE | 2018-09-25 18:04 | ER ---
Nurse's Notes [facility] Name: Jayne Ledbetter Age: 78 yrs Sex: Female : 1940 Arrival Date: 09/25/2018 Time: 13:39 Bed 2 Private MD: Diagnosis: Pain in right shoulder;Pain in right hip Presentation: 09/25 13:32 Acuity: KEVIN 2 sv 13:32 Presenting complaint: EMS states: called by family, reports mx falls in the last 4 sv days. c/o right shoulder pain, xray done at her house and showed a right shoulder dislocation. Pt on hospice. Morphine liquid was given by family. Transition of care: patient was not received from another setting of care. Onset of symptoms was September 21, 2018. Risk Assessment: Do you want to hurt yourself or someone else? Patient reports no desire to harm self or others. Initial Sepsis Screen: Does the patient meet any 2 criteria? No. Patient's initial sepsis screen is negative. Does the patient have a suspected source of infection? No. Patient's initial sepsis screen is negative. Care prior to arrival: None. 13:32 Method Of Arrival: EMS: [facility] sv Triage Assessment: 13:32 General: Appears uncomfortable, unkempt, Behavior is anxious. Pain: Complains of pain sv in anterior aspect of right shoulder Pain currently is 10 out of 10 on a pain scale. Neuro: Level of Consciousness is awake, alert, obeys commands, Oriented to person, place, situation. Cardiovascular: Patient's skin is warm and dry. Pulses are palpable in right radial artery and left radial artery Rhythm is sinus tachycardia. Respiratory: Respiratory effort is even, unlabored, Respiratory pattern is regular, symmetrical. Derm: Skin is normal. Musculoskeletal: Range of motion: limited in right shoulder. 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 - Social history:: Smoking status: Patient/guardian denies using tobacco. - Ebola Screening: : No symptoms or risks identified at this time. Screenin:15 Abuse screen: Denies threats or abuse. Denies injuries from another. Nutritional hb screening: No deficits noted. Tuberculosis screening: No symptoms or risk factors identified. Fall Risk Total Cali Fall Scale indicates High Risk Score (45 or more points). Fall prevention measures have been instituted. Side Rails Up X 2 Frequent Obs/Assessments Occuring Family Present and informed to notify staff if the need to leave the bedside As available patient and family educated on Fall Prevention Program and Strategies. Assessment: 13:45 General: Appears in no apparent distress. uncomfortable, Behavior is calm, cooperative. hb Pain: Pain currently is 8 out of 10 on a pain scale. Neuro: Level of Consciousness is awake, alert, obeys commands, Oriented to person, place, situation. Cardiovascular: Capillary refill < 3 seconds Patient's skin is warm and dry. Respiratory: Airway is patent Respiratory effort is even, unlabored, Respiratory pattern is regular, symmetrical, Breath sounds are clear bilaterally. GI: No signs and/or symptoms were reported involving the gastrointestinal system. : No signs and/or symptoms were reported regarding the genitourinary system. EENT: No signs and/or symptoms were reported regarding the EENT system. Derm: Skin is pink, warm \T\ dry. Musculoskeletal: Reports pain in right shoulder and right hip, guarding right shoulder and hip. 14:30 Reassessment: Patient appears in no apparent distress at this time. No changes from hb previously documented assessment. Patient and/or family updated on plan of care and expected duration. Pain level reassessed. Family remains at bedside. 15:15 Reassessment: Patient appears in no apparent distress at this time. No changes from hb previously documented assessment. Patient and/or family updated on plan of care and expected duration. Pain level reassessed. 16:05 Reassessment: Family pacing hallway, inquiring about rad results, still pending at this hb time. Family verbalized understanding. Pt resting with eyes closed. VSS. NAD. 16:35 Reassessment: Pt c/o right shoulder and hip pain 10/10, VSS, SHAMIR Abdi notified, morphine hb administered as ordered. Family remains at bedside, awaiting radiology results at this time. 16:55 Reassessment: Family pacing hallway, inquiring about radiology results. Radiology hb results still pending at this time, family updated. Pt resting with eyes closed, NAD, VSS. 17:22 Reassessment: Family verbalizing frustration regarding radiology results taking so hb long. SHAMIR Abdi notified, radiology dept notified, results pending at this time. Pt reports pain reduction 5/10, VSS. NAD. 17:42 Reassessment: SHAMIR Abdi at bedside. hb 18:04 Reassessment: discussed with family plan of care after discharge. Family verbalizes ss understanding instruction. Vital Signs: 13:35 BP 128 / 65; Pulse 105; Resp 18; Temp 98.8; Pulse Ox 88% on R/A; Weight 72 kg; Height 5 sv ft. 0 in. (152.40 cm); 14:53 BP 136 / 97; Pulse 110; Resp 17; Pulse Ox 98% on 2 lpm NC; Pain 8/10; hb 15:37 BP 130 / 84; Pulse 100; Resp 16; Pulse Ox 97% on 2 lpm NC; sv 16:43 BP 122 / 69; Pulse 95; Resp 18; Pulse Ox 96% on 2 lpm NC; sv 17:41 BP 119 / 71; Pulse 97; Resp 20; Pulse Ox 95% on 2 lpm NC; sv 13:35 Body Mass Index 31.00 (72.00 kg, 152.40 cm) sv 13:35 Pt placed on O2 \T\ 2L per NC. O2 sat up to 99%. sv ED Course: 13:39 Patient arrived in ED. sv 13:40 Triage completed. sv 13:45 Arm band placed on. sv 13:46 Patient has correct armband on for positive identification. Bed in low position. Call light in reach. Side rails up X2. security monitor on. Pulse ox on. NIBP on. 14:02 Jin Aragon PA is PHCP. jm 14:02 Booker Jenkins MD is Attending Physician. jmm 14:45 X-ray(s) taken. sv 14:50 Eleni Cavanaugh, ALIS is Primary Nurse. hb 15:12 Shoulder Right (2 View) XRAY In Process Unspecified. EDMS 15:12 Pelvis XRAY In Process Unspecified. EDMS 15:12 Hip Right 2 View XRAY In Process Unspecified. EDMS 15:14 X-ray completed. Portable x-ray completed in exam room. Patient tolerated procedure mh1 poorly. 16:00 Awaiting radiology results. sv 17:00 Awaiting radiology results. sv 17:41 Awaiting disposition, Awaiting re-evaluation by ER provider. sv 18:04 Nirmal Butler MD is Referral Physician. [facility] 18:09 No provider procedures requiring assistance completed. Patient did not have IV access ss during this emergency room visit. Administered Medications: 16:22 Not Given (other medication used): [place] 10 mg-325 mg 1 tabs PO once jmm 16:27 Drug: morphine 4 mg Route: IM; Site: left deltoid; hb 17:05 Follow up: Response: No adverse reaction hb 16:29 Drug: Zofran 4 mg Route: PO; hb 17:05 Follow up: Response: No adverse reaction hb Outcome: 18:04 Discharge ordered by . [facility] 18:28 Discharged to home via wheelchair, with family. ss 18:28 Condition: good 18:28 Discharge instructions given to patient, family, Instructed on discharge instructions, follow up and referral plans. medication usage, Demonstrated understanding of instructions, follow-up care, medications, Prescriptions given X 1. 18:28 Patient left the ED. ss Signatures: Dispatcher [employer] EDMS Mariann Clancy, RN RN Jin Aragon PA PA jmm Harvey, [facility] Osiris Weaver RN RN Eleni Cavanaugh RN RN hb Corrections: (The following items were deleted from the chart) 14:11 13:35 BP 128 / 65; Pulse 105bpm; Resp 18bpm; Pulse Ox 88% RA; Temp 98.8F; Pt placed on sv O2 \T\ 2L per NC. O2 sat up to 99%.; sv 17:56 17:22 Reassessment: Family verbalizing frustration regarding radiology results taking hb so long. SHAMIR Abdi notified, radiology dept notified, results pending at this time. Pt reports pain reduction 5/100, VSS. NAD. hb
[2018-09-25 19:20] VITALS: BP 119/71; O2SAT 95
== END 2018-09-25 18:28 | disposition home or self-care (01) ==
LOC: ER 13:36
DX: M25.511 Pain in right shoulder (principal); M25.551 Pain in right hip; C80.1 Malignant (primary) neoplasm, unspecified; E78.00 Pure hypercholesterolemia, unspecified; I10 Essential (primary) hypertension; F03.90 Unspecified dementia, unspecified severity, without behavioral disturbance, psychotic disturbance, mood disturbance, and anxiety
CPT/HCPCS: 72170; 96372; 99284